=== PATIENT | female | born 1955 | race Caucasian/White ===

== ENCOUNTER 2017-01-03 12:06 | Emergency (ER) | payer BC ==
[~2017-01-03] VITALS: Ht 157.5 cm; Wt 49.6 kg
[~2017-01-03 12:06] MED LIST: ASPI81CH2 PO; BUSP15TA70 PO; CLON0.5T3 PO; ESTR10TA PR; FLUC200T PO; ISOS30TA35 PO; LAMO200T PO; LAMO25TA PO; LISI-789 PO; LPT/40 PO; METO-217 PO; MOME220A INH; NITR0.4S UT; PANT40TA PO; VNTHFA/IN INH
[2017-01-03 12:10] VITALS: BP 125/77; TEMP 36.6; Ht 157.5 cm; Wt 49.6 kg
[2017-01-03] MEDS ORDERED: MOME220A INH (12:19)
[2017-01-03] MEDS ORDERED: SULF800T23 PO (12:58)
[2017-01-03 13:03] VITALS: PULSE 76; O2SAT 96
[2017-01-03 13:16] LABS: ZZUR CULT IF INDIC CLEAN CATCH NO
[2017-01-03 13:17] LABS: MANUAL MICROSCOPIC REQUIRED? YES; REVIEW REQ? NO; SULFASALICYLIC ACID NEG (NEG); URINE APPEARANCE SLIGHTLY CLOUDY (CLEAR); URINE COLOR ORANGE; URINE SPECIFIC GRAVITY 1.017 (1.000-1.030)
[2017-01-03 13:27] LABS: URINE WBC >30 /hpf (0-5)
[2017-01-03 13:28] LABS: URINE BACTERIA 2+ (NEG)
--- NOTE | 2017-01-03 20:54 | EMERGENCY ROOM VISIT NOTE ---
History First contact with patient: 12:48 Chief Complaint: URINARY SYMPTOMS Stated Complaint: UTI History of Present Illness The patient is a 61 year old female who presents to the Emergency Room with complaints of urinary discomfort, urgency and frequency since earlier this morning. The patient reports no fever, chills, back pain, nausea or vomiting. She has had a bladder infection in the past, and reports that this feels similar. She did take Uristat for the discomfort. She called her family doctor 's office, but they could not get her in until next week. She elected to come to the emergency department for evaluation. She currently denies any pain since using the Uristat. Review of Systems 10 system review was performed and was negative except for pertinent positives and negatives as indicated in history of present illness Past Medical/Surgical History Medical Problems: (1) Asthma (2) Coronary artery disease (3) Dyslipidemia (4) GERD (gastroesophageal reflux disease) Surgical Problems: (1) Status post cardiac catheterization Family History Unremarkable Social History Smoking Status: Never Smoker Alcohol Use: none Marital Status: Housing Status: lives with family Occupation Status: employed Current/Historical Medications Scheduled Aspirin (Aspirin), 81 MG PO DAILY Atorvastatin (Lipitor), 40 MG PO DAILY Buspirone Hcl (Buspar), 7.5 MG PO BID Estradiol Vaginal (Vagifem), 1 SUPP ME 2XWK Fluconazole (Diflucan), 200 MG PO Q2D Isosorbide Mononitrate Ext Rel (Imdur Ext Rel), 1 TAB PO QAM Lamotrigine (Lamictal), 200 MG PO QAM Lamotrigine (Lamictal), 100 MG PO QPM Lisinopril (Zestril), 2.5 MG PO DAILY Metoprolol Succinate (Toprol Xl), 50 MG PO DAILY Mometasone Furoate (Inhalation (Asmanex Twisthaler 120 Me), 1 PUFF INH QAM Nitroglycerin (Nitrostat), 0.4 MG UT PRN Pantoprazole Sodium (Protonix), 40 MG PO BID Sulfa/Trimethoprim (Bactrim Ds 800MG/160MG), 1 TAB PO BID Scheduled PRN Albuterol Hfa (Ventolin Hfa), 2 PUFF INH QID PRN for Wheezing Clonazepam (Klonopin), 0.5 MG PO DAILY PRN for Anxiety Physical Exam Vital Signs Date Time Temp Pulse Resp B/P (MAP) Pulse Ox O2 Delivery O2 Flow Rate FiO2 01/03/17 13:03 76 16 96 01/03/17 12:10 36.6 74 18 125/77 96 Room Air Physical Exam CONSTITUTIONAL: Healthy and well nourished. Alert and oriented X 3 with positive affect. Patient does not appear in any acute distress, nor does she appear toxic. HEENT: Normocephalic, atraumatic. Pupils equal, round and reactive. NECK: Full active range of motion without discomfort. RESPIRATORY: Clear to auscultation bilaterally with no wheezing, crackles, rhonchi or stridor. CARDIOVASCULAR: Regular rate and rhythm with no murmurs, rubs or gallops. GASTROINTESTINAL: Bowel sounds present in all quadrants. No abdominal or suprapubic tenderness to palpation. Negative CVA tenderness. MUSCULOSKELETAL: Full range of motion of all joints without discomfort. INTEGUMENTARY: No rash or other significant dermatologic conditions noted. NEUROLOGIC: No focal neurologic deficits noted. Medical Decision & Procedures Laboratory Results Test 01/03/17 12:19 Urine Color ORANGE Urine Appearance SLIGHTLY CLOUDY (CLEAR) Urine pH (4.5-7.5) Urine Specific Seaman 1.017 (1.000-1.030) Urine Protein NEG (NEG) Urine Glucose (UA) (NEG) Urine Ketones (NEG) Urine Occult Blood (NEG) Urine Nitrite (NEG) Urine Bilirubin (NEG) Urine Urobilinogen (NEG) Urine Leukocyte Esterase (NEG) Urine RBC 5-10 /hpf (0-4) Urine WBC >30 /hpf (0-5) Urine Epithelial Cells >30 /lpf (0-5) Urine Bacteria 2+ (NEG) ED Course Patient history and physical exam were performed. Nurse's notes were reviewed. Vital signs were reviewed and were normal. The patient's urine sample was stained with Uristat, therefore urine dip was not performed. Urine microscopy shows evidence for a contaminated sample. Cultures were ordered. The patient gives a history consistent with urinary tract infection, therefore will be treated with Bactrim DS twice a day 5 days. She may continue with Uristat as needed for dysuria. She was instructed to follow-up with her family doctor if symptoms persist, or return to the emergency department for any progressively worsening pain, vomiting or fever. The patient was happy with plan of care, voiced understanding of all discharge instructions, and denied any pain at the time of discharge. Medical Decision Medication Reconcilliation Current Medication List: was personally reviewed by me Blood Pressure Screening Patient's blood pressure: Normal blood pressure Impression Primary Impression: Symptoms of urinary tract infection Departure Information Dispostion Home / Self-Care Condition FAIR Prescriptions Sulfa/Trimethoprim (Bactrim Ds 800MG/160MG) Tab 1 TAB PO BID for 5 Days, #10 TAB Prov: Jeremy Key PA 01/03/17 Referrals No Doctor, Assigned Forms HOME CARE DOCUMENTATION FORM, IMPORTANT VISIT INFORMATION Patient Instructions My [facility] Additional Instructions Complete all Bactrim DS antibiotics as prescribed. Continue with your current Uristat medication as needed for discomfort. Symptoms should start to improve within the next 24-48 hours. Follow-up with your family doctor or PLASMA CUTTING MACHINE OPERATOR if symptoms are not improving by Saturday. Return to the emergency department for any significant worsening pain, vomiting or fever.
== END 2017-01-03 13:04 | disposition home or self-care (01) ==
LOC: C.EDB 12:07 → C.EDD 13:04
DX: R39.89 Other symptoms and signs involving the genitourinary system (principal); J45.909 Unspecified asthma, uncomplicated; I25.10 Atherosclerotic heart disease of native coronary artery without angina pectoris; E78.5 Hyperlipidemia, unspecified; K21.9 Gastro-esophageal reflux disease without esophagitis; Z98.890 Other specified postprocedural states; Z79.82 Long term (current) use of aspirin; Z79.899 Other long term (current) drug therapy

== ENCOUNTER → 2017-05-01 | Day surgery (SDC) | payer BC ==
[2017-04-24 13:37] VITALS: Ht 157.5 cm; Wt 49.1 kg
[~2017-05-01] VITALS: Ht 157.5 cm; Wt 49.1 kg
[~2017-05-01] MED LIST changes: +500ML BSS 0.3ML EPI 1:1000PF IRRIG ONE; +ACETAMINOPHEN 325 MG TAB PO PRN; +ALBU18002 INH; +AMVISC PLUS 0.8ML SYRINGE INT OCU ONE; +ATROPINE SULFATE 0.1 MG/ML 5ML SYR IV PRN; +AcetaZOLAMIDE 250 MG TAB PO SCH; +BETAXOLOL HCL 0.25% OP SUSP PER DROP CHARGE OPL SCH; +BRIMONIDINE TART 0.2% OP SOLN PER DROP CHARGE ONE; +BSS FLUSH ONE; +CLBPO15 TOP; +ENDOCOAT 0.85ML SYRINGE INT OCU ONE; +ESTR10TA; -ESTR10TA PR; +EpHEDrine SULFATE INJ 50 MG/ML AMP IV PRN; +EpINEphrine INJ 1MG/ML AMP 1 MG/ML AMP ONE; +LACTATED RINGER'S 1000ML 500 ML IV SCH; -LAMO25TA PO; +LIDOCAINE 4% OP SOLN DROP CHARGE ONE; +LIDOCAINE 4% OP SOLN DROP CHARGE OPL SCH; +LIDOCAINE HCL 1% MPF 2 ML VIAL ONE; +LMC/150 PO; +LUTE15CA PO; +MIDAZOLAM HCL 1 MG/ML 2ML VIAL ONE; +MIX: 4ML BSS 1ML EPI 1:1000 PF INSTIL ONE; +MOXIFLOXACIN OPH SOLN PER DROP CHARGE ONE; +MULT-506 PO; +NURSING VERBAL MED ORDER ONE; +OCUCOAT 1 ML SOLN IO ONE; +OMEG10007 PO; +POVIDONE-IODINE OP SOLN 30 ML BTL ONE; +PROPARACAINE 0.5% OP SOLN PER DROP CHARGE OPL ONE; +PROPARACAINE 0.5% OP SOLN PER DROP CHARGE OPL SCH; +TOBRAMYCIN/DEXAMETHASONE OPH OINT PER APPLN CHARGE ONE; -VNTHFA/IN INH
--- NOTE | 2017-05-01 07:44 | History & Physical Bridge - [place] ---
H&P Re-Evaluation Bridge Note: I have examined the patient, reviewed the History & Physical and in the interval since the performance of the History & Physical I have noted the following changes of clinical significance: No changes noted
[2017-05-01] MEDS: PHENYLEPHRINE HCL 2.5% OP SOLN PER DROP CHARGE OPL SCH ×2 (08:28→08:33)
[2017-05-01] MEDS: TROPICAMIDE 1% OP SOLN PER DROP CHARGE OPL SCH ×2 (08:29→08:34)
[2017-05-01] MEDS: CYCLOPENTOLATE HCL 1% OP SOLN PER DROP CHARGE OPL SCH ×2 (08:30→08:35)
[2017-05-01] MEDS: MOXIFLOXACIN OPH SOLN PER DROP CHARGE OPL SCH ×2 (08:31→08:36)
--- NOTE | 2017-05-01 09:00 | Discharge Instructions-SurgCtr ---
Discharge Instructions Date of Service May 01, 2017. Visit Reason for Visit: Left Cataract Discharge Discharge Diagnosis / Problem: lens implant left eye Discharge Goals Goal(s): Improve function Activity Recommendations Activity Limitations: resume your previous activity Lifting Limitations: no more than 10 pounds Exercise/Sports Limitations: gradually increase as tolerated May Resume Sexual Activity: when tolerated Shower/Bathe: tomorrow Driving or Machine Use: resume 1 day after discharge Anesthesia . Post Anesthesia Instructions: If you have had General Anesthesia or IV Sedation: * Do not drive today. * Resume driving when surgeon permits. * Do not make important decisions or sign legal documents today. * Call surgeon for: 1. Temperature elevations greater than 101 degrees F. 2. Uncontrollable pain. 3. Excessive bleeding. 4. Persistent nausea and vomiting. 5. Medication intolerance (nausea, vomiting or rash). * For nausea and vomiting use only clear liquids such as: tea, soda, bouillon until nausea subsides, then gradually increase diet as tolerated. * If you have any concerns or questions, call your surgeon's office. If physician is unavailable and it is an emergency, call 911 or go to the nearest emergency room. . Instructions / Follow-Up Instructions / Follow-Up ACTIVITY RECOMMENDATIONS: * Light activities. * Mild irritation and blurred vision are common for the first few days. * You may walk outside, read, watch television. * Redness around the white part of the eye is common. MEDICATIONS: Resume previous medications unless instructed otherwise by your surgeon. * Take white Diamox (Acetazolamide) tablet at 1 pm today. Start all eye drops at 1 pm today: * Eye drops (today and tomorrow): Prednisone - one drop in operative eye every 3 hours while awake Ofloxacin - one drop in operative eye every 3 hours while awake SPECIAL CARE INSTRUCTIONS: * Tape plastic shield over eye to sleep at night. Call your doctor at with any concerns or problems. FOLLOW UP VISIT: Follow-up with Dr Wolfe at [facility] office as scheduled. Diet Recommendations Home Diet: no limitations Procedures Procedures Performed: cataract extraction with lens implant Pending Studies Studies pending at discharge: no Medical Emergencies . Who to Call and When: Medical Emergencies: If at any time you feel your situation is an emergency, please call 911 immediately. . Non-Emergent Contact Non-Emergency issues call your: Golf Shoe Spike Assembler Call Non-Emergent contact if: your pain is not controlled [phone] . . "Provider Documentation" section prepared by Leandro Wolfe. .
--- NOTE | 2017-05-01 09:03 | [facility] Operative Report ---
Operative Report Date of Service May 01, 2017. Operative Report 1. PREOPERATIVE DIAGNOSIS: Pre Senile nuclear cataract, left eye. 2. POSTOPERATIVE DIAGNOSIS: Pre Senile nuclear cataract, left eye. 3. PROCEDURE: Phacoemulsification of left cataract with posterior chamber lens implant, type Harpreet, model [id number], power +20.5 diopters. ANESTHESIA: Local standby. SURGEON: Dr. Wolfe. COMPLICATIONS: None. OPERATING TIME: 10 minutes. 4. OPERATION AND FINDINGS: DESCRIPTION OF PROCEDURE: The left pupil was dilated. The anesthetic was administered using a topical technique. The left eye was prepped and draped. A speculum was placed. A clear corneal incision was formed. The chamber was filled with Amvisc Plus and Endocoat. Epinephrine solution was used. A paracentesis was placed. A capsulorrhexis was performed. The nucleus was hydrodissected. The lens was removed with phacoemulsification. Time was 3.55 seconds. The aspiration unit was used to remove the cortex. The capsule was filled with Amvisc Plus. The lens implant was folded and placed into the capsule. The lens was rotated to the correct position. The incision was hydrated. The Amvisc was aspirated. The wound was secure. The chamber was deep. The pupil was round. Brimonidine, TobraDex ointment and Vigamox solution were placed. The speculum was removed. The patient was returned to the Recovery Room in stable condition. I attest to the content of the Intraoperative Record and any orders documented therein. Any exceptions are noted below. The scribe's documentation has been prepared in my presence, under my direction and personally reviewed by me in its entirety. I confirm that the note above accurately reflects all work, treatment, procedures, and medical decision making performed by me. I personally scribed for Leandro Wolfe M.D. (SIMON) on 05/01/17 at 09:03. Electronically submitted by Tangela GIL).
[2017-05-01 09:04] VITALS: TEMP 36.4
--- NOTE | 2017-05-01 09:11 | Anesthesia Progress Nt - [facility] ---
Anesthesia Post Op Note Date & Time May 01, 2017 at 09:11 Vital Signs Pain Intensity: 0 Vital Signs Past 12 Hours Date Time Temp Pulse Resp B/P (MAP) Pulse Ox O2 Delivery O2 Flow Rate FiO2 05/01/17 08:22 37 80 16 130/80 (97) 97 Room Air Notes Mental Status: alert / awake / arousable, participated in evaluation Pt Amnestic to Procedure: Yes Nausea / Vomiting: adequately controlled Pain: adequately controlled Airway Patency, RR, SpO2: stable & adequate BP & HR: stable & adequate Hydration State: stable & adequate Anesthetic Complications: no major complications apparent
[2017-05-01 09:29] VITALS: BP 105/61; PULSE 73; O2SAT 97
== END | disposition home or self-care (01) ==
LOC: X.SURG 08:08
PROVIDERS: ATTEND Specialist
DX: H26.8 Other specified cataract (principal); I25.10 Atherosclerotic heart disease of native coronary artery without angina pectoris; I10 Essential (primary) hypertension; M19.90 Unspecified osteoarthritis, unspecified site; Z79.899 Other long term (current) drug therapy; F32.9 Major depressive disorder, single episode, unspecified; Z79.82 Long term (current) use of aspirin

== ENCOUNTER 2019-04-23 17:37 | Inpatient (IN) ==
[2019-04-23] MEDS ORDERED: SODIUM CHLORIDE 0.9% 1000ML 500 ML IV ONE (17:53)
[2019-04-23] MEDS ORDERED: ALBUT/IPRATROP 3MG/0.5MG NEB 3 ML VIAL NEB STA (17:54)
--- NOTE | 2019-04-23 18:07 | XRay Report ---
XR chest 1V portable CLINICAL HISTORY: cough COMPARISON STUDY: 05/31/2013 FINDINGS: The heart is normal in size. There are right perihilar airspace opacities consistent with p neumonia given the clinical history of cough. Films subsequent treatment are recommended in follow-up to exclude an underlying mass lesion.[There is no failure. There are no pleural effusions. IMPRESSION: 1. Right perihilar airspace opacities consistent with a pneumonia given the clinical history of cough . Films subsequent to treatment will be necessary in follow-up to exclude an underlying mass lesion. Electronically signed by: Jaime Marshall M.D. 04/23/2019 6:06 PM
[2019-04-23 18:25] LABS: Basophils # (auto) 0.02 K/uL (0-0.2); Basophils % (auto) 0.2 %; Eosinophils # (auto) 0.09 K/uL (0-0.5); Eosinophils % (auto) 0.9 %; Hematocrit (blood only) 35.6 % (37-47); Hemoglobin 12.4 g/dL (12.0-16.0); Immature Granulocytes # (auto) 0.02 K/uL (0.00-0.02); Immature Granulocytes % (auto) 0.2 %; Lymphocytes # (auto) 1.55 K/uL (1.2-3.4); Lymphocytes % (auto) 15.7 %; Mean Corpuscular Hemoglobin 31.5 pg (25-34); Mean Corpuscular Hgb Conc 34.8 g/dL (32-36); Mean Corpuscular Volume 90.4 fL (80-100); Mean Platelet Volume 9.4 fL (7.4-10.4); Monocytes # (auto) 1.17 K/uL (0.11-0.59); Monocytes % (auto) 11.9 %; Neutrophils % (auto) 71.1 %; Platelet Count 256 K/uL (130-400); RDW Coefficient of Variation 12.3 % (11.5-14.5); RDW Standard Deviation 40.8 fL (36.4-46.3); Red Blood Count 3.94 M/uL (4.2-5.4); White Blood Count 9.85 K/uL (4.8-10.8)
[2019-04-23 18:37] LABS: D Dimer 410 ug/L FEU (0-500); INR 1.1 (0.9-1.1); Partial Thromboplastin Ratio 1.1; Partial Thromboplastin Time 28.8 Seconds (21.0-31.0)
[2019-04-23 18:45] LABS: Alanine Aminotransferase 272 U/L (12-78); Albumin Level 3.4 gm/dl (3.4-5.0); Aspartate Aminotransferase 389 U/L (15-37); BUN Creatinine Ratio 19.1 (10-20); Blood Urea Nitrogen 20 mg/dl (7-18); Calcium 9.8 mg/dl (8.5-10.1); Carbon Dioxide 29 mmol/L (21-32); Chloride 101 mmol/L (98-107); Creatinine Clr Calc Pharmacy 42.7 ml/min; Est GFR (African American) 66.1; Glucose 100 mg/dl (70-99); Magnesium 2.2 mg/dl (1.8-2.4); Potassium 4.1 mmol/L (3.5-5.1); Sodium 136 mmol/L (136-145)
--- NOTE | 2019-04-23 18:53 | Emergency Department Note ---
History of Present Illness General Chief complaint: Cough Stated complaint: ASTHMA ATTACK Time Seen by Provider: 04/23/19 17:46 History of Present Illness This is a 64-year-old female that presents to the emergency department via private vehicle with complaints of "asthma attack". The patient notes a history of asthma. She also notes a history of AL in 2012 that did not result in any stenting. She notes that she is to take an aspirin daily but has not done so in the past month. She notes that she is here today because she has been experiencing increased heart rate, as well as cough over the past several days. She also notes a tightness in the chest that began a few days ago as well. She notes that when she had the AL before she really did not have any symptoms. With her symptoms today, she denies any fevers, chills, history of PE, recent plane travel, surgery or leg edema. She does not smoke. She notes that her cough is producing mucus but not any specific color. She denies any allergies. Home Medications Home Medications Medication Instructions Recorded Confirmed Type albuterol sulfate [ProAir 2 inh INHALATION QID PRN 03/16/19 04/23/19 History RespiClick] aspirin [Aspirin Low Dose] 81 mg PO QAM 03/16/19 04/23/19 History clonazepam 0.25 mg PO QPM 03/16/19 04/23/19 History estradiol [Vagifem] 10 mcg VAGINAL 2XWK 03/16/19 04/23/19 History fluconazole 200 mg PO Q2D 03/16/19 04/23/19 History isosorbide mononitrate 30 mg PO QAM 03/16/19 04/23/19 History lamotrigine 150 mg PO QPM 03/16/19 04/23/19 History lisinopril 2.5 mg PO QAM 03/16/19 04/23/19 History metoprolol succinate 50 mg PO QAM 03/16/19 04/23/19 History nitroglycerin 0.4 mg SUBLINGUAL DIRECTED PRN 03/16/19 04/23/19 History omega 9-kbu-bes-fish oil [Fish Oil] 1 cap PO DAILY 03/16/19 04/23/19 History buspirone 7.5 mg PO AMHS 04/23/19 04/23/19 History clobetasol 1 applic TOPICAL BID PRN 04/23/19 04/23/19 History lamotrigine 200 mg PO QAM 04/23/19 04/23/19 History lutein 10 mg PO DAILY 04/23/19 04/23/19 History mometasone [Asmanex Twisthaler] 1 inh INHALATION DAILY 04/23/19 04/23/19 History gh-kh-hewv-FA-Ca carb-vit K 1 tab PO DAILY 04/23/19 04/23/19 History [One-A-Day Womens Formula] pantoprazole 20 mg PO BID 04/23/19 04/23/19 History rosuvastatin 40 mg PO HS 04/23/19 04/23/19 History Allergies Allergy/AdvReac Type Severity Reaction Status Date / Time No Known Allergies Allergy Verified 04/23/19 20:27 Past Med/Surg History Medical History Environmental allergies DOG DANDER AND DUST Asthma Hx of myocardial infarction 2012 -SEEN [facility] - HAS CATH Hypertension Hyperlipidemia Anxiety Depression Cataract RIGHT EYE GERD (gastroesophageal reflux disease) Rheumatoid arthritis Coronary artery disease (Chronic) Asthma (Chronic) Dyslipidemia (Chronic) Surgical History Hx of cardiac cath 2013 [facility] - NO STENTING Hx of left cataract extraction History of colonoscopy Hx of hernia repair Nausea and vomiting after administration of anesthetic agent Status post cardiac catheterization (Resolved) "08/22/12 [facility]: left main OK LAD 50% proximal + 50% apical 1st diagonal 90% ostial with total occlusion mid segment left circ mild irregularities RCA 30-50% stenoses" Family History Mother Breast cancer Diabetes Brother Diabetes Father , 2 weeks ago Stroke Coronary heart disease Skin cancer Hypertension Social History Preferred Language: Bangladeshi Communication Ability: Effective Beliefs That Will Affect Care: None Current Living Situation: Spouse current occupational status: employed 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 Feels Safe at Home: Yes Safety Concerns: Feels Safe At This Time Smoking Status: Former smoker Second Hand Exposure: No ; Hx Alcohol Use: No Hx Substance Use: No Review of Systems A total of 10 systems reviewed and were otherwise negative Physical Exam Vital Signs Vital Signs - 24 hr 04/23/19 17:39 04/23/19 18:07 04/23/19 18:33 Temperature 37.2 C Temperature Source Oral Sepsis Recent Fever Within 48 Hours No Sepsis New/Unexplained Change in Mental Status No Sepsis Action Taken by Nursing No Action Required Pulse Rate 115 H 115 H Pulse Rate [Radial] 111 H Pulse Rate from SpO2 Sensor 116 H Pulse Rhythm Regular Respiratory Rate 22 20 19 Respiratory Effort / Characteristics Non-Labored Spontaneous Non-Labored Spontaneous Respiratory Depth Normal Respiratory Pattern Regular Blood Pressure 163/93 H 148/85 H Blood Pressure Mean 116 106 Blood Pressure Position Sitting Pulse Oximetry 92 97 93 Oxygen Delivery Method Room Air Room Air 04/23/19 19:05 04/23/19 19:20 04/23/19 19:30 Temperature Temperature Source Sepsis Recent Fever Within 48 Hours Sepsis New/Unexplained Change in Mental Status Sepsis Action Taken by Nursing Pulse Rate 125 H 118 H 108 H Pulse Rate [Radial] Pulse Rate from SpO2 Sensor 125 H 108 H Pulse Rhythm Respiratory Rate 21 21 Respiratory Effort / Characteristics Respiratory Depth Respiratory Pattern Blood Pressure 171/91 H 171/91 H 143/77 H Blood Pressure Mean 117 99 Blood Pressure Position Pulse Oximetry 99 97 Oxygen Delivery Method 04/23/19 20:52 04/23/19 21:00 04/23/19 21:30 Temperature Temperature Source Sepsis Recent Fever Within 48 Hours Sepsis New/Unexplained Change in Mental Status Sepsis Action Taken by Nursing Pulse Rate 114 H 102 H 103 H Pulse Rate [Radial] Pulse Rate from SpO2 Sensor 114 H 103 H 103 H Pulse Rhythm Respiratory Rate 24 16 25 H Respiratory Effort / Characteristics Respiratory Depth Respiratory Pattern Blood Pressure 141/91 H 121/74 123/77 Blood Pressure Mean 107 89 92 Blood Pressure Position Pulse Oximetry 94 93 94 Oxygen Delivery Method VITAL SIGNS - Vital signs and nursing notes were reviewed. Stable and afebrile. GENERAL -64-year-old female appearing her stated age who is in no acute distress but is coughing repeatedly on my examination and does appear to be slightly ill. Communicates well with provider and answers questions appropriately. SKIN - Without rashes. HEAD - NC/AT. EYES - Sclera anicteric. EARS - No deformities of external structures noted on gross examination bilaterally. NOSE - Midline and without cyanosis. No epistaxis or purulent drainage noted. Septum midline without deviation or septal hematoma noted. MOUTH/OROPHARYNX - Without perioral cyanosis. LUNGS - Chest wall symmetric without accessory muscle use, intercostals retractions, or central cyanosis. Normal vesicular breath sounds CTA B/L. No wheezes, rales, or rhonchi appreciated. CARDIAC -tachycardia with S1/S2. No murmur, rubs, or gallops appreciated. ABDOMEN - Abdominal contour normal without pulsations or visible masses. BS n ormoactive all four quadrants. No tenderness, palpable masses, hepatosplenomegaly, or ascites noted. EXTREMITIES - No clubbing or peripheral cyanosis. No pretibial edema present. +5/5 strength noted in UE/LE bilaterally. NEUROLOGIC - Cranial nerves II through XII grossly intact. PSYCH - A&O, and cooperates fully with examiner. Pt is very pleasant and interacts well with examiner. Course Administered Medications Buspirone HCl (Buspar) 7.5 mg PO BID TRUDI Stop: 05/23/19 23:04 Last Admin: 04/24/19 00:02 Dose: 7.5 mg Documented by: [id number] Guaifenesin (Mucinex) 600 mg PO Q12 TRUDI Stop: 05/23/19 23:04 Last Admin: 04/24/19 00:01 Dose: 600 mg Documented by: [id number] Potassium Chloride/Sodium Chloride (Normal Saline W/20 Meq Kcl) 20 meq in 1,000 mls @ 50 mls/hr IV .Q20H ONE Stop: 04/24/19 19:04 Last Admin: 04/24/19 00:04 Dose: 50 mls/hr Documented by: [id number] Lamotrigine (Lamictal) 150 mg PO QPM TRUDI Stop: 05/24/19 00:14 Last Admin: 04/24/19 00:14 Dose: 150 mg Documented by: [id number] Nitroglycerin (Nitro-Bid 2%) 1 inch EXT Q6 TRUDI Stop: 05/24/19 00:00 Last Admin: 04/24/19 00:18 Dose: 1 inch Documented by: [id number] Discontinued Medications Albuterol (Duoneb) 3 ml NEB NOW STA Stop: 04/23/19 17:55 Last Admin: 04/23/19 18:07 Dose: 3 ml Documented by: [id number] Aspirin (Aspirin Chew) 324 mg PO NOW STA Stop: 04/23/19 19:13 Last Admin: 04/23/19 19:17 Dose: 324 mg Documented by: [id number] Sodium Chloride (Nss 1000ml) 500 mls @ 999 mls/hr IV .Q31M ONE Stop: 04/23/19 18:23 Last Infusion: 04/23/19 19:11 Dose: 0 mls/hr Documented by: [id number] Admin: 04/23/19 18:32 Dose: 999 mls/hr Documented by: [id number] Piperacillin Sod/Tazobactam Sod (Zosyn) 4.5 gm in 120 mls @ 240 mls/hr IV NOW ONE Stop: 04/23/19 19:54 Last Infusion: 04/23/19 21:29 Dose: 0 mls/hr Documented by: [id number] Admin: 04/23/19 20:44 Dose: 240 mls/hr Documented by: [id number] Doxycycline Hyclate 100 mg/ (Dextrose) 110 mls @ 50 mls/hr IV NOW STA Stop: 04/24/19 00:09 Last Infusion: 04/24/19 01:37 Dose: 0 mls/hr Documented by: [id number] Admin: 04/23/19 23:12 Dose: 50 mls/hr Documented by: [id number] Ioversol (Optiray 320 125ml) 120 ml IV ONCE PRN PRN Reason: Interaction Checking Stop: 04/27/19 18:55 Last Admin: 04/23/19 18:56 Dose: 120 ml Documented by: [id number] Metoprolol Tartrate (Lopressor) 5 mg IV NOW STA Stop: 04/23/19 19:17 Last Admin: 04/23/19 19:20 Dose: 5 mg Documented by: [id number] Nitroglycerin (Nitrostat) 0.4 mg SL NOW STA Stop: 04/23/19 19:12 Last Admin: 04/23/19 19:18 Dose: 0.4 mg Documented by: [id number] Nitroglycerin (Nitro-Bid 2%) Confirm Administered Dose 18 inch .ROUTE .STK-MED ONE Stop: 04/24/19 00:19 Last Admin: 04/24/19 00:22 Dose: Not Given Documented by: [id number] Medical Decision Making Laboratory Data Result diagrams: 04/23/19 18:08 04/23/19 18:08 Lab Results 11/01/0204/23/19 04/23/19 Range/Units 18:08 18:08 18:08 WBC 9.85 (4.8-10.8) K/uL RBC 3.94 L (4.2-5.4) M/uL Hgb 12.4 (12.0-16.0) g/dL Hct 35.6 L (37-47) % MCV 90.4 (80-100) fL MCH 31.5 (25-34) pg MCHC 34.8 (32-36) g/dL RDW Std Deviation 40.8 (36.4-46.3) fL RDW Coeff of Vinayak 12.3 (11.5-14.5) % Plt Count 256 (130-400) K/uL MPV 9.4 (7.4-10.4) fL Immature Gran % (Auto) 0.2 % Neut % (Auto) 71.1 % Lymph % (Auto) 15.7 % Norton % (Auto) 11.9 % Eos % (Auto) 0.9 % Baso % (Auto) 0.2 % Immature Gran # (Auto) 0.02 (0.00-0.02) K/uL Neut # (Auto) 7.00 H (1.4-6.5) K/uL Lymph # (Auto) 1.55 (1.2-3.4) K/uL Norton # (Auto) 1.17 H (0.11-0.59) K/uL Eos # (Auto) 0.09 (0-0.5) K/uL Baso # (Auto) 0.02 (0-0.2) K/uL PT 11.0 (9.0-12.0) Seconds INR 1.1 (0.9-1.1) APTT 28.8 (21.0-31.0) Seconds PTT Ratio 1.1 D-Dimer 410 (0-500) ug/L FEU Sodium 136 (136-145) mmol/L Potassium 4.1 (3.5-5.1) mmol/L Chloride 101 (98-107) mmol/L Carbon Dioxide 29 (21-32) mmol/L Anion Gap 6.0 (3-11) BUN 20 H (7-18) mg/dl Creatinine 1.03 (0.6-1.2) mg/dl Est Cr Clr Drug Dosing 42.7 ml/min Est GFR ( Amer) 66.1 Est GFR (Non-Af Amer) 57.0 BUN/Creatinine Ratio 19.1 (10-20) Glucose 100 H (70-99) mg/dl Lactate (0.4-2.0) mmol/L Calcium 9.8 (8.5-10.1) mg/dl Magnesium 2.2 (1.8-2.4) mg/dl Total Bilirubin 0.4 (0.2-1) mg/dl AST 389 H (15-37) U/L ALT 272 H (12-78) U/L Alkaline Phosphatase 156 H (45-117) U/L Troponin I < 0.015 (0-0.045) ng/ml NT-Pro-B Natriuret Pep 145 (0-900) pg/ml Total Protein 7.4 (6.4-8.2) gm/dl Albumin 3.4 (3.4-5.0) gm/dl Globulin 4.0 (2.5-4.0) gm/dl Albumin/Globulin Ratio 0.8 L (0.9-2) Lipase (73-393) U/L TSH 1.090 (0.300-4.500) uIu/ml Urine Color Urine Appearance (Clear) Urine pH (4.5-7.5) Ur Specific [place] (1.000-1.030) Urine Protein (Negative) Urine Glucose (UA) (Negative) Urine Ketones (Negative) Urine Blood (Negative) Urine Nitrite (Negative) Urine Bilirubin (Negative) Urine Urobilinogen (Negative) Ur Leukocyte Esterase (Negative) Urine WBC (Auto) (0-5) /hpf Urine RBC (Auto) (0-4) /hpf U Hyaline Cast (Auto) (0-5) /lpf U Epithel Cells (Auto) (0-5) /lpf Urine Bacteria (Auto) (Negative) Influenza Type A (PCR) (Neg) Influenza Type B (PCR) (Neg) 04/23/19 04/23/19 04/23/19 Range/Units 18:08 18:08 19:49 WBC (4.8-10.8) K/uL RBC (4.2-5.4) M/uL Hgb (12.0-16.0) g/dL Hct (37-47) % MCV (80-100) fL MCH (25-34) pg MCHC (32-36) g/dL RDW Std Deviation (36.4-46.3) fL RDW Coeff of Vinayak (11.5-14.5) % Plt Count (130-400) K/uL MPV (7.4-10.4) fL Immature Gran % (Auto) % Neut % (Auto) % Lymph % (Auto) % Norton % (Auto) % Eos % (Auto) % Baso % (Auto) % Immature Gran # (Auto) (0.00-0.02) K/uL Neut # (Auto) (1.4-6.5) K/uL Lymph # (Auto) (1.2-3.4) K/uL Norton # (Auto) (0.11-0.59) K/uL Eos # (Auto) (0-0.5) K/uL Baso # (Auto) (0-0.2) K/uL PT (9.0-12.0) Seconds INR (0.9-1.1) APTT (21.0-31.0) Seconds PTT Ratio D-Dimer (0-500) ug/L FEU Sodium (136-145) mmol/L Potassium (3.5-5.1) mmol/L Chloride (98-107) mmol/L Carbon Dioxide (21-32) mmol/L Anion Gap (3-11) BUN (7-18) mg/dl Creatinine (0.6-1.2) mg/dl Est Cr Clr Drug Dosing ml/min Est GFR ( Amer) Est GFR (Non-Af Amer) BUN/Creatinine Ratio (10-20) Glucose (70-99) mg/dl Lactate 0.9 (0.4-2.0) mmol/L Calcium (8.5-10.1) mg/dl Magnesium (1.8-2.4) mg/dl Total Bilirubin (0.2-1) mg/dl AST (15-37) U/L ALT (12-78) U/L Alkaline Phosphatase (45-117) U/L Troponin I < 0.015 (0-0.045) ng/ml NT-Pro-B Natriuret Pep (0-900) pg/ml Total Protein (6.4-8.2) gm/dl Albumin (3.4-5.0) gm/dl Globulin (2.5-4.0) gm/dl Albumin/Globulin Ratio (0.9-2) Lipase 148 (73-393) U/L TSH (0.300-4.500) uIu/ml Urine Color Urine Appearance (Clear) Urine pH (4.5-7.5) Ur Specific [place] (1.000-1.030) Urine Protein (Negative) Urine Glucose (UA) (Negative) Urine Ketones (Negative) Urine Blood (Negative) Urine Nitrite (Negative) Urine Bilirubin (Negative) Urine Urobilinogen (Negative) Ur Leukocyte Esterase (Negative) Urine WBC (Auto) (0-5) /hpf Urine RBC (Auto) (0-4) /hpf U Hyaline Cast (Auto) (0-5) /lpf U Epithel Cells (Auto) (0-5) /lpf Urine Bacteria (Auto) (Negative) Influenza Type A (PCR) (Neg) Influenza Type B (PCR) (Neg) 04/23/19 04/23/19 Range/Units 20:46 20:46 WBC (4.8-10.8) K/uL RBC (4.2-5.4) M/uL Hgb (12.0-16.0) g/dL Hct (37-47) % MCV (80-100) fL MCH (25-34) pg MCHC (32-36) g/dL RDW Std Deviation (36.4-46.3) fL RDW Coeff of Vinayak (11.5-14.5) % Plt Count (130-400) K/uL MPV (7.4-10.4) fL Immature Gran % (Auto) % Neut % (Auto) % Lymph % (Auto) % Norton % (Auto) % Eos % (Auto) % Baso % (Auto) % Immature Gran # (Auto) (0.00-0.02) K/uL Neut # (Auto) (1.4-6.5) K/uL Lymph # (Auto) (1.2-3.4) K/uL Norton # (Auto) (0.11-0.59) K/uL Eos # (Auto) (0-0.5) K/uL Baso # (Auto) (0-0.2) K/uL PT (9.0-12.0) Seconds INR (0.9-1.1) APTT (21.0-31.0) Seconds PTT Ratio D-Dimer (0-500) ug/L FEU Sodium (136-145) mmol/L Potassium (3.5-5.1) mmol/L Chloride (98-107) mmol/L Carbon Dioxide (21-32) mmol/L Anion Gap (3-11) BUN (7-18) mg/dl Creatinine (0.6-1.2) mg/dl Est Cr Clr Drug Dosing ml/min Est GFR ( Amer) Est GFR (Non-Af Amer) BUN/Creatinine Ratio (10-20) Glucose (70-99) mg/dl Lactate (0.4-2.0) mmol/L Calcium (8.5-10.1) mg/dl Magnesium (1.8-2.4) mg/dl Total Bilirubin (0.2-1) mg/dl AST (15-37) U/L ALT (12-78) U/L Alkaline Phosphatase (45-117) U/L Troponin I (0-0.045) ng/ml NT-Pro-B Natriuret Pep (0-900) pg/ml Total Protein (6.4-8.2) gm/dl Albumin (3.4-5.0) gm/dl Globulin (2.5-4.0) gm/dl Albumin/Globulin Ratio (0.9-2) Lipase (73-393) U/L TSH (0.300-4.500) uIu/ml Urine Color Yellow Urine Appearance Clear (Clear) Urine pH 6.0 (4.5-7.5) Ur Specific [place] > 1.045 H (1.000-1.030) Urine Protein Trace H (Negative) Urine Glucose (UA) Negative (Negative) Urine Ketones Trace H (Negative) Urine Blood Negative (Negative) Urine Nitrite Negative (Negative) Urine Bilirubin Negative (Negative) Urine Urobilinogen Negative (Negative) Ur Leukocyte Esterase Negative (Negative) Urine WBC (Auto) 1-5 (0-5) /hpf Urine RBC (Auto) 0-4 (0-4) /hpf U Hyaline Cast (Auto) 0 (0-5) /lpf U Epithel Cells (Auto) 10-20 H (0-5) /lpf Urine Bacteria (Auto) Negative (Negative) Influenza Type A (PCR) Neg for Influ A (Neg) Influenza Type B (PCR) Neg for Influ B (Neg) Imaging Data Radiologist's Impression: XR chest 1V portable CLINICAL HISTORY: cough COMPARISON STUDY: 05/31/2013 FINDINGS: The heart is normal in size. There are right perihilar airspace opacit ies consistent with pneumonia given the clinical history of cough. Films subsequent treatment are recommended in follow-up to exclude an underlying mass lesion.[There is no failure. There are no pleural effusions. IMPRESSION: 1. Right perihilar airspace opacities consistent with a pneumonia given the clinical history of cough. Films subsequent to treatment will be necessary in follow-up to exclude an underlying mass lesion. Electronically signed by: Jaime Marshall M.D. 04/23/2019 6:[address] ANGIOGRAM OF THE CHEST CLINICAL HISTORY: Cough, tachcyardia, no infectious symptoms ABNORMAL CHEST X- RAY. PERIHILAR NODULARITY COMPARISON STUDY: Chest x-ray dated 04/23/2019 TECHNIQUE: Following the IV administration of 120 mL of Optiray-320, CT angiogram of the thorax was performed from the thoracic inlet to the lung bases utilizing the pulmonary embolus protocol. Images are reviewed in the axial, sagittal, and coronal planes. IV contrast was administered without complication. MIP imaging was performed. A dose lowering technique was utilized adhering to the principles of ALARA. CT DOSE: 220.19 mGy.cm FINDINGS: There is equivocal mild hepatic steatosis No pathologically enlarged axillary mediastinal or hilar lymph nodes were visualized. There was no evidence of thoracic aortic dilatation. There were no pulmonary artery filling defects to indicate acute pulmonary embolism. No pleural effusions are visualized. There are areas of parenchymal consolidation within the right upper lobe and right middle lobe suggestive of a pneumonia. Films subsequent to treatment are recommended in follow-up. IMPRESSION: 1. No evidence of acute pulmonary embolism 2. Areas of parenchymal consolidation with air bronchograms identified within the right upper lobe and right middle lobe, suggestive of a pneumonia. Imaging subsequently treatment is recommended in follow-up Electronically signed by: Jaime Marshall M.D. 04/23/2019 7:13 PM [facility] Narrative Patient was seen and evaluated as above in room a4b. Review was performed of nursing notes and vital signs. After obtaining a thorough history and physical examination the above work up was performed. She presents to us today with a cough. She is coughing on exam. She is tachycardic. No chest pain. IV access was established and the above work-up was performed. Chest x-ray was obtained and is concerning for pneumonia. The patient has had no fever, and I am concerned for possible other etiologies. Fluids were ordered given the tachycardia. She was given a DuoNeb for the cough. CBC reveals no leukocytosis or concerning anemia. No coagulopathy. D-dimer negative. She appears to be slightly dehydrated with a BUN of 20. Patient's AST and ALT are elevated. Initial troponin negative. BNP normal. Lipase and TSH reveals a normal result. Urinalysis does not suggest infection. The patient's initial EKG revealed sinus tachycardia, at a rate of 117 bpm. QTc 426. This was compared to EKG of June 01, [address] depression is now noted in the anterior lateral leads. T wave inversion is now evident in the inferior leads. I will note that the patient currently has no chest pain. Given the patient's tachycardia, lack of infectious symptoms, and chest x-ray showing consolidation I did believe that a CTA was warranted to rule out PE. Results of this are as above and there is redemonstration of the suspected pneumonia. I will note that I was called when the patient was down in CT, shortly after she came off the table she developed substernal chest pain. I was immediately provided the EKG (EKG #2) that was obtained, and this was at 1907. The EKG revealed sinus tachycardia, rate of 123 bpm. This was compared to the EKG performed earlier in the day and ST depression was noted in the inferior and anterior leads. This was concerning, and the patient was given sublingual nitro, IV Lopressor and aspirin. She was reevaluated with complete improvement of her symptoms and the tachycardia was also improved. Once pain-free repeat EKG (EKG #3) was performed at 1935 and revealed sinus tachycardia, rate of 109 bpm and when compared with the EKG pe rformed at [address] depression was no longer evident in the inferior or anterior lateral leads. T wave inversion is less evident in the inferior leads and the T wave inversion is no longer evident in the anterior lateral leads. Again the patient was pain-free. Zosyn was ordered for the pneumonia, but prior to this blood cultures and lactic acid were also obtained. Lactic acid was normal. Given the patient's curb 65 score of 2, EKG changes that occurred during her stay here with chest pain I do believe that further evaluation and management is warranted in the inpatient setting. I did consult the hospitalist who will admit the patient for further evaluation. Case was discussed with the attending physician. I attest that I have personally reviewed the patient medication list. I attest that I have reviewed the patient's blood pressure and it was found to be elevated likely secondary to situation and the patient will be admitted for further evaluation and management of her presentation here today. GCS: 15 In the evaluation and treatment of this patient, the following differential diagnoses were considered: AL, ASC, Dysrhythmia, Angina, Mediastinitis, GERD, Esophagitis, PE, Pneumonia, Bronchitis, Costochondritis, Rib Fracture, Zoster, among others. Impression & Plan Pneumonia involving right lung, Abnormal EKG, Elevated LFTs, Chest pain, Cough Critical Care Time I have personally spent greater than 45 minutes of critical care time in the direct management of this patient. This includes bedside care, interpretation of diagnostic studies, and testing, discussion with consultants, patient, and other required patient management activities. This 45 minutes is in excess of all separately billable procedures. Discharge Plan Visit Data *Final* Discharge Date/Time: 04/23/19 22:47 Chief Complaint: Cough Stated Complaint: ASTHMA ATTACK ED Provider: Henrry Griffith ED Midlevel Provider: Herrera Robles Discharge Problem: Pneumonia involving right lung, Abnormal EKG, Elevated LFTs, Chest pain, Cough Patient Disposition: Admitted As Inpatient Condition: Good Discharge Instructions Interventions: ED Discharge Assessment Last Done: 04/23/19 22:47
[2019-04-23 18:56] LABS: Albumin Globulin Ratio 0.8 (0.9-2); Alkaline Phosphatase 156 U/L (45-117); Bilirubin,Total 0.4 mg/dl (0.2-1); NT Pro B Type Natriuretic Pept 145 pg/ml (0-900); Total Protein 7.4 gm/dl (6.4-8.2); Troponin I < 0.015 ng/ml (0-0.045)
[2019-04-23] MEDS ORDERED: OPTIRAY 320 125ml IV PRN (18:56)
[2019-04-23] MEDS ORDERED: NITROGLYCERIN SL 0.4 MG/TAB TAB SL STA (19:11)
[2019-04-23] MEDS ORDERED: ASPIRIN 81 MG CHEW PO STA (19:12)
--- NOTE | 2019-04-23 19:15 | CT Scan Report ---
CT ANGIOGRAM OF THE CHEST CLINICAL HISTORY: Cough, tachcyardia, no infectious symptoms ABNORMAL CHEST X-RAY. PERIHILAR NODULARI TY COMPARISON STUDY: Chest x-ray dated 04/23/2019 TECHNIQUE: Following the IV administration of 120 mL of Optiray-320, CT angiogram of the thorax was p erformed from the thoracic inlet to the lung bases utilizing the pulmonary embolus protocol. Images a re reviewed in the axial, sagittal, and coronal planes. IV contrast was administered without complica tion. MIP imaging was performed. A dose lowering technique was utilized adhering to the principles o f ALARA. CT DOSE: 220.19 mGy.cm FINDINGS: There is equivocal mild hepatic steatosis No pathologically enlarged axillary mediastinal or hilar lymph nodes were visualized. There was no evidence of thoracic aortic dilatation. There were no pulmonary artery filling defects to indicate acute pulmonary embolism. No pleural effusions are visualized. There are areas of parenchymal consolidation within the right upper lobe and right middle lobe sugges tive of a pneumonia. Films subsequent to treatment are recommended in follow-up. IMPRESSION: 1. No evidence of acute pulmonary embolism 2. Areas of parenchymal consolidation with air bronchograms identified within the right upper lobe an d right middle lobe, suggestive of a pneumonia. Imaging subsequently treatment is recommended in foll ow-up Electronically signed by: Jaime Marshall M.D. 04/23/2019 7:13 PM
[2019-04-23] MEDS ORDERED: METOPROLOL TARTRATE 1 MG/ML VIAL IV STA (19:16)
[2019-04-23] MEDS ORDERED: PIPERACILL/TAZOBAC CONSULT ACTIVE PRN (19:25)
[2019-04-23] MEDS ORDERED: PIPERACILLIN/TAZOBACTAM 4.5 GM/120 ML BAG IV ONE (19:25)
--- NOTE | 2019-04-23 20:07 | Emergency Department Note ---
ED Visit Note Patient was seen by our PA/RAILROAD REPAIRER. I was involved in the patient's care and did evaluate the patient myself. I was involved in the care throughout the ER stay. The patient presents with chest pain. Work-up shows a pneumonia as the cause for her difficulty. She developed some increasing pain while here in the ED and EKG showed some ischemic changes. Her EKG and her symptoms improved with nitroglycerin, aspirin and Lopressor. Given her findings, given the EKG changes, a hospital stay is clearly warranted. The on-call hospitalist was consulted. .
[2019-04-23 20:57] LABS: Appearance Urine Clear (Clear); Bacteria Urine Automated Negative (Negative); Bilirubin Urine Negative (Negative); Blood Urine Negative (Negative); Cast Urine Automated 0 /lpf (0-5); Color Urine Yellow; Glucose Urine UA Negative (Negative); Ketones Urine Trace (Negative); Leukocyte Esterase Urine Negative (Negative); Nitrite Urine Negative (Negative); Protein Urine Trace (Negative); RBC Urine Automated 0-4 /hpf (0-4); Specific Gravity Urine > 1.045 (1.000-1.030); Urobilinogen Urine Negative (Negative)
[2019-04-23 21:26] LABS: Influenza A virus by PCR Neg for Influ A (Neg); Influenza B virus by PCR Neg for Influ B (Neg)
--- NOTE | 2019-04-23 21:29 | History & Physical Report ---
Date of Service April 23, 2019 Assessment & Plan (1) Pneumonia involving right lung: This is a 64-year-old female who has significant past medical history of CAD, HTN, HLD, depression and anxiety, CKD stage III who presents to [facility] ED secondary to cough and shortness of breath x3 days. In ED patient was hypertensive, although on my examination her BP was 120/80s, tachycardic 118, afebrile H&H 12.4/36.6, wbc 9.85, plt 256 D-dimer WNL ; Initial troponin < 0.015, Pro BNP, Bun 20, Cr 1.03, Lactate 0.9, Lipase and TSH WNL Transaminitis with AST 389, ALT 272, ALP 156, Tbili WNL Influenza negative CXR and CT Chest concerning for R upper/mid PNA Ddx: Viral PNA, atypical pna, bacterial PNA, legionella, takotsubo BOTTOM BRUSHER, ACS, Anxiety among other etiologies Please refer to Dr. Cunningham addendum for further details regarding assessment and plan (2) Abnormal EKG: noted on admission initial troponin negative recommend cycle trop x 3 repeat ecg echocardiogram currently pt chest pain/sob free (3) Elevated LFTs: AST 389, ALT 272, alk phos 156, total bilirubin WNL Labs reviewed from 09/2018 revealed unremarkable LFTs Patient asymptomatic without any GI symptoms Would recommend obtaining right upper quadrant ultrasound, holding statin and hepatitis panel (4) Coronary artery disease: Currently no chest pain or shortness of breath Patient does have EKG changes with T wave inversions inferiorly On aspirin, Crestor, metoprolol, lisinopril, Imdur as outpatient Initial troponin negative Recommend cycle troponin x3 Repeat EKG Recommend obtain echocardiogram in a.m. (5) Hypertension: blood pressure improved on my exam 120/80s continue metoprolol, lisinopril, Imdur Monitor (6) Dyslipidemia: on crestor elevated LFTS, ? if in setting of crestor plan per Dr. Vogt (7) Asthma: no acute exac despite PNA dx continue asthmanex, prn albuterol (8) Acute stress reaction: Father 2 weeks ago increased depression/anx because of this monitor closely (9) Depression with anxiety: continue lamictal, buspar, clonazepam increased anx with recent passing of father (10) GERD (gastroesophageal reflux disease): continue PPI (11) DVT prophylaxis: Per Dr. Vogt Disposition: admit to medical floor Follow up: PCP Dr. Monroy upon discharge Pt was seen and examined in collaboration with Dr. Vogt, please see addendum History of Present Illness Chief Complaint: Cough and shortness of breath x3 days. Primary Care Provider: aVn Monroy MD This is a 64-year-old female who has significant past medical history of CAD, HTN, HLD, depression and anxiety, CKD stage III who presents to [facility] ED secondary to cough and shortness of breath x3 days. Over the past 3 days patient has developed a harsh cough, occasionally productive of white clear sputum, shortness of breath, chest tightness and heart palpitations. Today while at work patient felt like her heart was racing and continued to have persistent cough; therefore, she came to ED for further evaluation. "I have hx of heart attack and was concerned maybe it was that." She denies any recent fever, chills, sweats, lightheadedness, dizziness, syncope, sinus congestion, rhinorrhea, sore throat, dmitry chest pain, hemoptysis, HUDSON, nausea, vomiting, abdominal pain change in bowel or urinary habits. Her appetite has otherwise been unremarkable. She denies any weight loss or weight gain. She denies any edema, PND orthopnea. Over the past 2 weeks she has been very st ressed secondary to losing her father and thought may be her heart racing was due to that. Over the past 2 weeks she has noticed intermittent heart racing but was more persistent today which prompted her to seek evaluation. She has been compliant with all of her medications. She does feel mildly anxious currently. She has been able to exercise without restriction, last exercise was 3 days ago. She lives at home with her . She is a non-smoker nondrinker. 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 She did travel to [place] in early February and stayed in hotel. Family members went along as well and has no current sick contacts. She also admits to being very sick in January for approximately 4 weeks with upper respiratory symptoms, cough and her asthma. She states she was not treated with antibiotics and symptoms improved on their own. Allergies Allergy/AdvReac Type Severity Reaction Status Date / Time No Known Allergies Allergy Verified 04/23/19 20:27 Home Medications Home Medications Medication Instructions Recorded Confirmed Type albuterol sulfate [ProAir 2 inh INHALATION QID PRN 03/16/19 04/23/19 History RespiClick] aspirin [Aspirin Low Dose] 81 mg PO QAM 03/16/19 04/23/19 History clonazepam 0.25 mg PO QPM 03/16/19 04/23/19 History estradiol [Vagifem] 10 mcg VAGINAL 2XWK 03/16/19 04/23/19 History fluconazole 200 mg PO Q2D 03/16/19 04/23/19 History isosorbide mononitrate 30 mg PO QAM 03/16/19 04/23/19 History lamotrigine 150 mg PO QPM 03/16/19 04/23/19 History lisinopril 2.5 mg PO QAM 03/16/19 04/23/19 History metoprolol succinate 50 mg PO QAM 03/16/19 04/23/19 History nitroglycerin 0.4 mg SUBLINGUAL DIRECTED PRN 03/16/19 04/23/19 History omega 4-gmn-wyy-fish oil [Fish Oil] 1 cap PO DAILY 03/16/19 04/23/19 History buspirone 7.5 mg PO AMHS 04/23/19 04/23/19 History clobetasol 1 applic TOPICAL BID PRN 04/23/19 04/23/19 History lamotrigine 200 mg PO QAM 04/23/19 04/23/19 History lutein 10 mg PO DAILY 04/23/19 04/23/19 History mometasone [Asmanex Twisthaler] 1 inh INHALATION DAILY 04/23/19 04/23/19 History rq-hs-wsmu-FA-Ca carb-vit K 1 tab PO DAILY 04/23/19 04/23/19 History [One-A-Day Womens Formula] pantoprazole 20 mg PO BID 04/23/19 04/23/19 History rosuvastatin 40 mg PO HS 04/23/19 04/23/19 History Past Med/Surg History Medical History Environmental allergies DOG DANDER AND DUST Asthma Hx of myocardial infarction 2012 -SEEN [facility] - HAS CATH Hypertension Hyperlipidemia Anxiety Depression Cataract RIGHT EYE GERD (gastroesophageal reflux disease) Rheumatoid arthritis Coronary artery disease (Chronic) Asthma (Chronic) Dyslipidemia (Chronic) Surgical History Hx of cardiac cath 2012 [facility] - NO STENTING Hx of left cataract extraction History of colonoscopy Hx of hernia repair Nausea and vomiting after administration of anesthetic agent Status post cardiac catheterization (Resolved) "08/22/12 [facility]: left main OK LAD 50% proximal + 50% apical 1st diagonal 90% ostial with total occlusion mid segment left circ mild irregularities RCA 30-50% stenoses" Family History Mother Breast cancer Diabetes Brother Diabetes Father , 2 weeks ago Stroke Coronary heart disease Skin cancer Hypertension Social History Preferred Language: Armenian Communication Ability: Effective Beliefs That Will Affect Care: None Current Living Situation: Spouse current occupational status: employed 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 Feels Safe at Home: Yes Safety Concerns: Feels Safe At This Time Smoking Status: Former smoker Second Hand Exposure: No ; Hx Alcohol Use: No Hx Substance Use: No Review of Systems Review of Systems: All systems reviewed & are unremarkable except as noted in HPI & below Physical Exam Physical Exam: Constitutional: WD/WN, female, appears anxious, vitals as above, NAD, sitting up in bed, pleasant, conversing easily Head: Normocephalic, Atraumatic Eyes: PERRL, conjunctivae normal, anicteric sclerae ENMT: external ear and nose normal, oropharynx normal Neck: trachea midline, no thyromegaly normal visual inspection Respiratory: normal respiratory effort, lungs clear to auscultation with decreased breath sounds bilateral bases, no wheeze, rales, rhonchi. Normal insp/exp effort, no accessory muscle use Cardiovascular: Tachycardic rate, regular rhythm, soft 1/6 JOSEY best noted RUSB, no edema Vessels: no JVD or carotid bruit Chest: normal inspection of chest Abdomen: normal bowel sounds, soft, nontender, no hepatosplenomegaly Musculoskeletal: no cyanosis or clubbing, extremities motor strength 5/5 Skin: no rashes, warm and dry normal turgor Neurologic: PERRL, EOMI, accommodation nl, no face palsy, no dysarthria CN's II-XI intact bilaterally and moves all extremities Psychiatric: A+Ox3, euthymic affect Lymphatic: no cervical or axillary lymphadenopathy : deferred Results & Data Vital Signs (Past 12 Hours) Vital Signs Temp Pulse Pulse Resp BP Pulse Ox 04/23/19 19:20 118 H 171/91 H 04/23/19 18:33 115 H 19 148/85 H 93 04/23/19 18:07 111 H 20 97 04/23/19 17:39 37.2 C 115 H 22 163/93 H 92 Laboratory Results Short CBC 04/23/19 04/23/19 Range/Units 18:08 18:08 WBC 9.85 (4.8-10.8) K/uL Hgb 12.4 (12.0-16.0) g/dL Hct 35.6 L (37-47) % Plt Count 256 (130-400) K/uL Creatinine 1.03 (0.6-1.2) mg/dl AST 389 H (15-37) U/L Troponin I < 0.015 (0-0.045) ng/ml BMP 04/23/19 18:08 Sodium 136 Potassium 4.1 Chloride 101 Carbon Dioxide 29 BUN 20 H Creatinine 1.03 Glucose 100 H Calcium 9.8 Cardiac Enzymes 04/23/19 Range/Units 18:08 Troponin I < 0.015 (0-0.045) ng/ml Liver Function 04/23/19 Range/Units 18:08 Total Bilirubin 0.4 (0.2-1) mg/dl AST 389 H (15-37) U/L ALT 272 H (12-78) U/L Alkaline Phosphatase 156 H (45-117) U/L Albumin 3.4 (3.4-5.0) gm/dl Urine 04/23/19 Range/Units 20:46 Urine Color Yellow Urine Appearance Clear (Clear) Urine pH 6.0 (4.5-7.5) Ur Specific [place] > 1.045 H (1.000-1.030) Urine Protein Trace H (Negative) Urine Glucose (UA) Negative (Negative) Diagnostic Findings Chest CTA: IMPRESSION: 1. No evidence of acute pulmonary embolism 2. Areas of parenchymal consolidation with air bronchograms identified within the right upper lobe and right middle lobe, suggestive of a pneumonia. Imaging subsequently treatment is recommended in follow-up Chest Xray: IMPRESSION: 1. Right perihilar airspace opacities consistent with a pneumonia given the clinical history of cough. Films subsequent to treatment will be necessary in follow-up to exclude an underlying mass lesion. Medications Administered Short CBC 04/23/19 Range/Units 18:08 WBC 9.85 (4.8-10.8) K/uL Hgb 12.4 (12.0-16.0) g/dL Hct 35.6 L (37-47) % Plt Count 256 (130-400) K/uL BMP 04/23/19 18:08 Sodium 136 Potassium 4.1 Chloride 101 Carbon Dioxide 29 BUN 20 H Creatinine 1.03 Glucose 100 H Calcium 9.8 Cardiac Enzymes 04/23/19 Range/Units 18:08 Troponin I < 0.015 (0-0.045) ng/ml Liver Function 04/23/19 Range/Units 18:08 Total Bilirubin 0.4 (0.2-1) mg/dl AST 389 H (15-37) U/L ALT 272 H (12-78) U/L Alkaline Phosphatase 156 H (45-117) U/L Albumin 3.4 (3.4-5.0) gm/dl Urine 04/23/19 Range/Units 20:46 Urine Color Yellow Urine Appearance Clear (Clear) Urine pH 6.0 (4.5-7.5) Ur Specific [place] > 1.045 H (1.000-1.030) Urine Protein Trace H (Negative) Urine Glucose (UA) Negative (Negative) ECG Rate (beats per minute): 117 Rhythm: sinus tachycardia Findings: + T-wave inversion (Inferior) Code Status & VTE Plan Code Status Full Code VTE Prophylaxis Plan VTE Prophylaxis will be ordered: Yes Supervising Physician Co-Signing Physician Notes IM ATTENDING : Patient seen and examined. History obtained from patient and records. Preceding documentation by Ms. Catrina Stack PA-C reviewed. FINAL ASSESSMENT AND PLAN as follows : Chest discomfort hx CAD as per records Multifactorial : Atypical pneumonia, no overt sepsis Uncontrolled HTN Anxiety contributory Abnormal LFTs rule out hepatobiliary disease Patient denies abdominal pain symptoms. Prediabetes as per records, hemoglobin A1c of 5.21 March 2018 PCU Doxycycline for atypical pneumonia Facilitate home BP meds, may need titration Anxiolytic as needed trend troponin TTE; GMG Cardiology consult as per patient's request for chest pain Gallbladder ultrasound Follow LFTs, GI consult if with progression Update hemoglobin A1c DVT prophylaxis. Lovenox subcu Full code
[2019-04-23] MEDS ORDERED: DOXYCYCLINE HYCLATE 100 MG in DEXTROSE 5% 100 ML IV STA (21:58)
--- NOTE | 2019-04-23 22:45 | Ultrasound Report ---
BILIARY ULTRASOUND CLINICAL HISTORY: Abnormal LFTs COMPARISON STUDY: No previous studies for comparison. FINDINGS: The pancreas appears sonographically normal. The gallbladder appears sonographically normal . The liver appears sonographically normal. There is no ductal dilatation. The common bile duct measu res 1 mm. There is no right-sided hydronephrosis. IMPRESSION: 1. Normal biliary ultrasound. Electronically signed by: Jaime Marshall M.D. 04/23/2019 10:43 PM
[2019-04-23] MEDS ORDERED: NSS + 20MEQ KCL 20 MEQ/1,000 ML BAG IV ONE (23:05)
[2019-04-23] MEDS ORDERED: IPRATROPIUM BROMIDE NEB SOLN 0.02% 2.5 ML VIAL INH PRN (23:05)
[2019-04-23] MEDS ORDERED: LORazepam 0.5 MG/1 ML VIAL IV PRN (23:05)
[2019-04-23] MEDS ORDERED: LEVALBUTEROL 1.25MG/0.5ML NEB INH PRN (23:05)
[2019-04-23] MEDS ORDERED: MoRPHine SULFATE 4 MG/ML 1 ML CARP\\VIAL IV PRN (23:05)
[2019-04-23] MEDS ORDERED: PROMETHAZINE HCL 12.5 MG in SODIUM CHLORIDE 0.9% 50 ML IV PRN (23:05)
[2019-04-23] MEDS ORDERED: XOPENEX/ATROVENT 1.25mg/0.5MG NEB COMBO NEB PRN (23:05)
[2019-04-23] MEDS ORDERED: TRAMADOL HCL 50 MG TABLET PO PRN (23:05)
[2019-04-24] MEDS: guaiFENesin 600 MG TABCR PO SCH ×3 (00:01→21:25)
[2019-04-24] MEDS: BusPIRone 15 MG TAB PO SCH ×3 (00:02→21:23)
[2019-04-24] MEDS: lamoTRIgine 100 MG TAB PO SCH ×3 (00:14→21:25)
[2019-04-24] MEDS ORDERED: NITROGLYCERIN 2% OINTMENT 30GM TUBE ONE (00:18)
[2019-04-24] MEDS: NITROGLYCERIN 2% OINTMENT 30GM TUBE EXT SCH ×4 (00:18→18:31)
[2019-04-24 05:30] LABS: Basophils # (auto) 0.04 K/uL (0-0.2); Basophils % (auto) 0.5 %; Eosinophils # (auto) 0.14 K/uL (0-0.5); Eosinophils % (auto) 1.7 %; Hematocrit (blood only) 31.5 % (37-47); Hemoglobin 10.7 g/dL (12.0-16.0); Immature Granulocytes # (auto) 0.02 K/uL (0.00-0.02); Immature Granulocytes % (auto) 0.2 %; Lymphocytes # (auto) 1.61 K/uL (1.2-3.4); Lymphocytes % (auto) 19.3 %; Mean Corpuscular Hemoglobin 30.7 pg (25-34); Mean Corpuscular Volume 90.5 fL (80-100); Mean Platelet Volume 9.3 fL (7.4-10.4); Monocytes # (auto) 1.07 K/uL (0.11-0.59); Monocytes % (auto) 12.8 %; Neutrophils # (auto) 5.47 K/uL (1.4-6.5); Neutrophils % (auto) 65.5 %; Platelet Count 223 K/uL (130-400); RDW Coefficient of Variation 12.5 % (11.5-14.5); RDW Standard Deviation 41.1 fL (36.4-46.3); Red Blood Count 3.48 M/uL (4.2-5.4); White Blood Count 8.35 K/uL (4.8-10.8)
[2019-04-24 05:44] LABS: Estimated Average Glucose 123 mg/dl; Hemoglobin A1C 5.9 % (4.5-5.6)
[2019-04-24] MEDS: ACETAMINOPHEN 325 MG TAB PO PRN ×2 (05:53→16:00)
[2019-04-24 06:15] LABS: Alanine Aminotransferase 212 U/L (12-78); Albumin Globulin Ratio 0.8 (0.9-2); Albumin Level 2.7 gm/dl (3.4-5.0); Alkaline Phosphatase 137 U/L (45-117); Aspartate Aminotransferase 183 U/L (15-37); BUN Creatinine Ratio 15.9 (10-20); Bilirubin,Total 0.4 mg/dl (0.2-1); Blood Urea Nitrogen 12 mg/dl (7-18); Calcium 9.1 mg/dl (8.5-10.1); Carbon Dioxide 28 mmol/L (21-32); Chloride 106 mmol/L (98-107); Chol HDL Ratio 2; Cholesterol 119 mg/dl (0-200); Creatinine Clr Calc Pharmacy 56.2 ml/min; Est GFR (Non-African American) 78.6; Globulin 3.6 gm/dl (2.5-4.0); Glucose 98 mg/dl (70-99); HDL Cholesterol 71 mg/dl; LDL Cholesterol Calculated 35 mg/dl; Potassium 4.1 mmol/L (3.5-5.1); Sodium 140 mmol/L (136-145); Total Protein 6.3 gm/dl (6.4-8.2); Triglycerides 66 mg/dl (0-150); Troponin I < 0.015 ng/ml (0-0.045); VLDL Cholesterol 13 mg/dl
[2019-04-24] MEDS: ENOXAPARIN INJ 30 MG/0.3 ML SYR SQ SCH (07:57)
[2019-04-24] MEDS: MOMETASONE FUROATE 14 PUFF/1 INHALER INH SCH (07:58)
[2019-04-24] MEDS: METOPROLOL SUCC 50MG EXT REL TAB PO SCH (08:00)
[2019-04-24] MEDS: PANTOprazole 40 MG TAB PO SCH ×2 (08:00→21:23)
[2019-04-24] MEDS: ISOSORBIDE MONO EXTENDED REL 30 MG TABCR PO SCH (08:00)
[2019-04-24] MEDS: ASPIRIN 81 MG ECTAB PO SCH (08:00)
[2019-04-24] MEDS: DOXYCYCLINE HYCLATE 100 MG CAP PO SCH ×2 (08:00→21:23)
[2019-04-24] MEDS: LISINOPRIL 2.5 MG TAB PO SCH (08:00)
[2019-04-24] MEDS ORDERED: ENOXAPARIN INJ 40 MG/0.4 ML SYR SQ SCH (09:00)
--- NOTE | 2019-04-24 11:08 | Cardiology Consultation ---
Date of Consultation April 24, 2019 Assessment & Plan (1) Pneumonia involving right lung: (2) Coronary artery disease: (3) Abnormal ECG: Patient admitted with community-acquired pneumonia. Serial ECGs demonstrate ischemic ST changes involving the inferior and lateral leads. Patient with known chronic diagonal branch vessel occlusion and history of ST changes during stress testing dated 2014. Her troponins are undetectable. No regional wall motion normalities per resting 2D transthoracic echocardiogram. Continue beta-kobi, aspirin, and SIENNA inhibitor. Transition topical nitrates to oral isosorbide monohydrate prior to discharge. Recommend treatment of underlying pneumonia. Ischemic evaluation when stable from a pulmonary perspective. Exercise stress echocardiography versus pharmacologic stress pending clinical course. Continue antibiotics per internal medicine. Cardiology will continue to follow during hospitalization. History of Present Illness Reason for Consultation: Abnormal ECG Requesting Physician: Dr. Alvarez Attending Physician: Laurie Alvarez MD History of Present Illness 64-year-old female presents to the emergency department with cough and chest discomfort. Patient's father approximately 2 weeks ago. Since that time she is noted intermittent discomfort, cough, and scant sputum production. Denies fever or chills. No orthopnea, PND, or lower extremity edema. Reports palpitations described as "heart pounding" while at work yesterday. This occurred occurred in the setting of severe coughing. She came to the emergency room for further evaluation and treatment. Serial ECGs performed. Evidence of significant ST depression in the inferior anterior lateral leads noted which have resolved. Cardiac enzymes are negative x3 sets. ECG changes noted during most recent stress test performed 2014. Carries a history of chronic diagonal branch vessel occlusion as well as moderate LAD (FFR -) and RCA coronary artery disease 08/22/2012. No intervention performed. Up until recent symptoms, patient had been exercising regularly with stable functional capacity. Currently, patient resting comfortably. Denies chest pain or shortness of breath. Notes cough with scant clear sputum production. Sinus rhythm on telemetry. Cardiac enzymes are negative x3 sets. Preliminary review of resting 2D transthoracic echocardiogram demonstrates no regional wall motion on normalities. Allergies Allergy/AdvReac Type Severity Reaction Status Date / Time No Known Allergies Allergy Verified 04/23/19 20:27 Home Medications Home Medications Medication Instructions Recorded Confirmed Type albuterol sulfate [ProAir 2 inh INHALATION QID PRN 03/16/19 04/23/19 History RespiClick] aspirin [Aspirin Low Dose] 81 mg PO QAM 03/16/19 04/23/19 History clonazepam 0.25 mg PO QPM 03/16/19 04/23/19 History estradiol [Vagifem] 10 mcg VAGINAL 2XWK 03/16/19 04/23/19 History fluconazole 200 mg PO Q2D 03/16/19 04/23/19 History isosorbide mononitrate 30 mg PO QAM 03/16/19 04/23/19 History lamotrigine 150 mg PO QPM 03/16/19 04/23/19 History lisinopril 2.5 mg PO QAM 03/16/19 04/23/19 History metoprolol succinate 50 mg PO QAM 03/16/19 04/23/19 History nitroglycerin 0.4 mg SUBLINGUAL DIRECTED PRN 03/16/19 04/23/19 History omega 9-hmg-nvl-fish oil [Fish Oil] 1 cap PO DAILY 03/16/19 04/23/19 History buspirone 7.5 mg PO AMHS 04/23/19 04/23/19 History clobetasol 1 applic TOPICAL BID PRN 04/23/19 04/23/19 History lamotrigine 200 mg PO QAM 04/23/19 04/23/19 History lutein 10 mg PO DAILY 04/23/19 04/23/19 History mometasone [Asmanex Twisthaler] 1 inh INHALATION DAILY 04/23/19 04/23/19 History sp-hr-xzpi-FA-Ca carb-vit K 1 tab PO DAILY 04/23/19 04/23/19 History [One-A-Day Womens Formula] pantoprazole 20 mg PO BID 04/23/19 04/23/19 History rosuvastatin 40 mg PO HS 04/23/19 04/23/19 History Patient History Medical History Environmental allergies DOG DANDER AND DUST Asthma Hx of myocardial infarction 2012 -SEEN [facility] - HAS CATH Hypertension Hyperlipidemia Anxiety Depression Cataract RIGHT EYE GERD (gastroesophageal reflux disease) Rheumatoid arthritis Coronary artery disease (Chronic) Asthma (Chronic) Dyslipidemia (Chronic) Surgical History Hx of cardiac cath 2012 [facility] - NO STENTING Hx of left cataract extraction History of colonoscopy Hx of hernia repair Nausea and vomiting after administration of anesthetic agent Status post cardiac catheterization (Resolved) "08/22/12 [facility]: left main OK LAD 50% proximal + 50% apical 1st diagonal 90% ostial with total occlusion mid segment left circ mild irregularities RCA 30-50% stenoses" Family History Mother Breast cancer Diabetes Brother Diabetes Father , 2 weeks ago Stroke Coronary heart disease Skin cancer Hypertension Social History Preferred Language: Portuguese Communication Ability: Effective Beliefs That Will Affect Care: None Current Living Situation: Spouse current occupational status: employed 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 HEENT: Normocephalic. Atraumatic. Conjunctiva pink, no scleral icterus. Neck: No carotid bruits, the carotid upstrokes are brisk. No JVD. No HJR Heart: Regular normal S-1 and S-2 no S-3 or S-4 gallop. No murmurs or rub appreciated. PMI is not displaced. No RV heave. Lungs: Clear bilateral without rales , rhonchi, or wheeze. Abdomen: Normal bowel sounds. Soft. Nontender. No masses or organomegaly. No abdominal bruits. Extremities: No clubbing, cyanosis, or edema. Pulses: radial=2/4, Dorsalis pedis =2/4, posterior tibial=2/4. Neuro: Cranial nerves grossly intact. No focal motor deficit. Results & Data Vital Signs (Past 12 Hours) Vital Signs Temp Pulse Pulse Resp BP Pulse Ox 04/24/19 07:22 36.7 C 89 18 108/64 95 04/24/19 03:00 36.5 C 84 14 116/69 96 04/23/19 23:05 36.6 C 90 17 128/74 92 Laboratory Results Laboratory Results - last 24 hr 04/23/19 04/23/19 04/23/19 18:08 18:08 18:08 WBC 9.85 RBC 3.94 L Hgb 12.4 Hct 35.6 L MCV 90.4 MCH 31.5 MCHC 34.8 RDW Std Deviation 40.8 RDW Coeff of Vinayak 12.3 Plt Count 256 MPV 9.4 Immature Gran % (Auto) 0.2 Neut % (Auto) 71.1 Lymph % (Auto) 15.7 Warren % (Auto) 11.9 Eos % (Auto) 0.9 Baso % (Auto) 0.2 Immature Gran # (Auto) 0.02 Neut # (Auto) 7.00 H Lymph # (Auto) 1.55 Warren # (Auto) 1.17 H Eos # (Auto) 0.09 Baso # (Auto) 0.02 PT 11.0 INR 1.1 APTT 28.8 PTT Ratio 1.1 D-Dimer 410 Sodium 136 Potassium 4.1 Chloride 101 Carbon Dioxide 29 Anion Gap 6.0 BUN 20 H Creatinine 1.03 Est Cr Clr Drug Dosing 42.7 Est GFR ( Amer) 66.1 Est GFR (Non-Af Amer) 57.0 BUN/Creatinine Ratio 19.1 Glucose 100 H Estimat Average Glucose Hemoglobin A1c Lactate Calcium 9.8 Magnesium 2.2 Total Bilirubin 0.4 AST 389 H ALT 272 H Alkaline Phosphatase 156 H Troponin I < 0.015 NT-Pro-B Natriuret Pep 145 Total Protein 7.4 Albumin 3.4 Globulin 4.0 Albumin/Globulin Ratio 0.8 L Triglycerides Cholesterol LDL Cholesterol, Calc VLDL Cholesterol, Calc HDL Cholesterol Cholesterol/HDL Ratio Lipase Procalcitonin TSH 1.090 Urine Color Urine Appearance Urine pH Ur Specific [place] Urine Protein Urine Glucose (UA) Urine Ketones Urine Blood Urine Nitrite Urine Bilirubin Urine Urobilinogen Ur Leukocyte Esterase Urine WBC (Auto) Urine RBC (Auto) U Hyaline Cast (Auto) U Epithel Cells (Auto) Urine Bacteria (Auto) Anti-Mitochondrial Ab Hepatitis A IgM Ab Hep Bs Antigen Hep B Core IgM Ab Hepatitis C Antibody Influenza Type A (PCR) Influenza Type B (PCR) Mycoplasma pneumon IgG Mycoplasma pneumon IgM 04/23/19 04/23/19 04/23/19 18:08 19:49 20:46 WBC RBC Hgb Hct MCV MCH MCHC RDW Std Deviation RDW Coeff of Vinayak Plt Count MPV Immature Gran % (Auto) Neut % (Auto) Lymph % (Auto) [place] % (Auto) Eos % (Auto) Baso % (Auto) Immature Gran # (Auto) Neut # (Auto) Lymph # (Auto) [place] # (Auto) Eos # (Auto) Baso # (Auto) PT INR APTT PTT Ratio D-Dimer Sodium Potassium Chloride Carbon Dioxide Anion Gap BUN Creatinine Est Cr Clr Drug Dosing Est GFR ( Amer) Est GFR (Non-Af Amer) BUN/Creatinine Ratio Glucose Estimat Average Glucose Hemoglobin A1c Lactate 0.9 Calcium Magnesium Total Bilirubin AST ALT Alkaline Phosphatase Troponin I NT-Pro-B Natriuret Pep Total Protein Albumin Globulin Albumin/Globulin Ratio Triglycerides Cholesterol LDL Cholesterol, Calc VLDL Cholesterol, Calc HDL Cholesterol Cholesterol/HDL Ratio Lipase 148 Procalcitonin TSH Urine Color Urine Appearance Urine pH Ur Specific [place] Urine Protein Urine Glucose (UA) Urine Ketones Urine Blood Urine Nitrite Urine Bilirubin Urine Urobilinogen Ur Leukocyte Esterase Urine WBC (Auto) Urine RBC (Auto) U Hyaline Cast (Auto) U Epithel Cells (Auto) Urine Bacteria (Auto) Anti-Mitochondrial Ab Hepatitis A IgM Ab Hep Bs Antigen Hep B Core IgM Ab Hepatitis C Antibody Influenza Type A (PCR) Neg for Influ A Influenza Type B (PCR) Neg for Influ B Mycoplasma pneumon IgG Mycoplasma pneumon IgM 04/23/19 04/23/19 04/23/19 20:46 21:40 21:57 WBC RBC Hgb Hct MCV MCH MCHC RDW Std Deviation RDW Coeff of Vinayak Plt Count MPV Immature Gran % (Auto) Neut % (Auto) Lymph % (Auto) [place] % (Auto) Eos % (Auto) Baso % (Auto) Immature Gran # (Auto) Neut # (Auto) Lymph # (Auto) [place] # (Auto) Eos # (Auto) Baso # (Auto) PT INR APTT PTT Ratio D-Dimer Sodium Potassium Chloride Carbon Dioxide Anion Gap BUN Creatinine Est Cr Clr Drug Dosing Est GFR ( Amer) Est GFR (Non-Af Amer) BUN/Creatinine Ratio Glucose Estimat Average Glucose Hemoglobin A1c Lactate Calcium Magnesium Total Bilirubin AST ALT Alkaline Phosphatase Troponin I < 0.015 NT-Pro-B Natriuret Pep Total Protein Albumin Globulin Albumin/Globulin Ratio Triglycerides Cholesterol LDL Cholesterol, Calc VLDL Cholesterol, Calc HDL Cholesterol Cholesterol/HDL Ratio Lipase Procalcitonin 0.11 TSH Urine Color Yellow Urine Appearance Clear Urine pH 6.0 Ur Specific [place] > 1.045 H Urine Protein Trace H Urine Glucose (UA) Negative Urine Ketones Trace H Urine Blood Negative Urine Nitrite Negative Urine Bilirubin Negative Urine Urobilinogen Negative Ur Leukocyte Esterase Negative Urine WBC (Auto) 1-5 Urine RBC (Auto) 0-4 U Hyaline Cast (Auto) 0 U Epithel Cells (Auto) 10-20 H Urine Bacteria (Auto) Negative Anti-Mitochondrial Ab Hepatitis A IgM Ab Hep Bs Antigen Hep B Core IgM Ab Hepatitis C Antibody Influenza Type A (PCR) Influenza Type B (PCR) Mycoplasma pneumon IgG Mycoplasma pneumon IgM 04/24/19 04/24/19 04/24/19 01:28 05:18 05:18 WBC 8.35 RBC 3.48 L Hgb 10.7 L Hct 31.5 L MCV 90.5 MCH 30.7 MCHC 34.0 RDW Std Deviation 41.1 RDW Coeff of Vinayak 12.5 Plt Count 223 MPV 9.3 Immature Gran % (Auto) 0.2 Neut % (Auto) 65.5 Lymph % (Auto) 19.3 Warren % (Auto) 12.8 Eos % (Auto) 1.7 Baso % (Auto) 0.5 Immature Gran # (Auto) 0.02 Neut # (Auto) 5.47 Lymph # (Auto) 1.61 [place] # (Auto) 1.07 H Eos # (Auto) 0.14 Baso # (Auto) 0.04 PT INR APTT PTT Ratio D-Dimer Sodium 140 Potassium 4.1 Chloride 106 Carbon Dioxide 28 Anion Gap 6.0 BUN 12 Creatinine 0.79 Est Cr Clr Drug Dosing 56.2 Est GFR ( Amer) 91.0 Est GFR (Non-Af Amer) 78.6 BUN/Creatinine Ratio 15.9 Glucose 98 Estimat Average Glucose Hemoglobin A1c Lactate Calcium 9.1 Magnesium Total Bilirubin 0.4 AST 183 H ALT 212 H Alkaline Phosphatase 137 H Troponin I < 0.015 < 0.015 NT-Pro-B Natriuret Pep Total Protein 6.3 L Albumin 2.7 L Globulin 3.6 Albumin/Globulin Ratio 0.8 L Triglycerides 66 Cholesterol 119 LDL Cholesterol, Calc 35 VLDL Cholesterol, Calc 13 HDL Cholesterol 71 Cholesterol/HDL Ratio 2 Lipase Procalcitonin TSH Urine Color Urine Appearance Urine pH Ur Specific [place] Urine Protein Urine Glucose (UA) Urine Ketones Urine Blood Urine Nitrite Urine Bilirubin Urine Urobilinogen Ur Leukocyte Esterase Urine WBC (Auto) Urine RBC (Auto) U Hyaline Cast (Auto) U Epithel Cells (Auto) Urine Bacteria (Auto) Anti-Mitochondrial Ab Hepatitis A IgM Ab Hep Bs Antigen Hep B Core IgM Ab Hepatitis C Antibody Influenza Type A (PCR) Influenza Type B (PCR) Mycoplasma pneumon IgG Mycoplasma pneumon IgM 04/24/19 04/24/19 04/24/19 05:18 10:05 10:05 WBC RBC Hgb Hct MCV MCH MCHC RDW Std Deviation RDW Coeff of Vinayak Plt Count MPV Immature Gran % (Auto) Neut % (Auto) Lymph % (Auto) [place] % (Auto) Eos % (Auto) Baso % (Auto) Immature Gran # (Auto) Neut # (Auto) Lymph # (Auto) [place] # (Auto) Eos # (Auto) Baso # (Auto) PT INR APTT PTT Ratio D-Dimer Sodium Potassium Chloride Carbon Dioxide Anion Gap BUN Creatinine Est Cr Clr Drug Dosing Est GFR ( Amer) Est GFR (Non-Af Amer) BUN/Creatinine Ratio Glucose Estimat Average Glucose 123 Hemoglobin A1c 5.9 H Lactate Calcium Magnesium Total Bilirubin AST ALT Alkaline Phosphatase Troponin I NT-Pro-B Natriuret Pep Total Protein Albumin Globulin Albumin/Globulin Ratio Triglycerides Cholesterol LDL Cholesterol, Calc VLDL Cholesterol, Calc HDL Cholesterol Cholesterol/HDL Ratio Lipase Procalcitonin TSH Urine Color Urine Appearance Urine pH Ur Specific [place] Urine Protein Urine Glucose (UA) Urine Ketones Urine Blood Urine Nitrite Urine Bilirubin Urine Urobilinogen Ur Leukocyte Esterase Urine WBC (Auto) Urine RBC (Auto) U Hyaline Cast (Auto) U Epithel Cells (Auto) Urine Bacteria (Auto) Anti-Mitochondrial Ab Pending Hepatitis A IgM Ab Pending Hep Bs Antigen Pending Hep B Core IgM Ab Pending Hepatitis C Antibody Pending Influenza Type A (PCR) Influenza Type B (PCR) Mycoplasma pneumon IgG Pending Mycoplasma pneumon IgM Pending
[2019-04-24 11:12] LABS: Hepatitis B Surface Antigen Neg (Neg)
[2019-04-24 11:41] LABS: Hepatitis C IgG 13Yrs+Old_Rflx Neg (Neg)
--- NOTE | 2019-04-24 15:53 | Hospitalist Progress Note ---
Date of Service April 24, 2019 Assessment & Plan (1) Pneumonia involving right lung: This is a 64-year-old female who has significant past medical history of CAD, HTN, HLD, depression and anxiety, CKD stage III who presents to [facility] ED secondary to cough and shortness of breath x3 days. CXR and CT Chest concerning for R upper/mid PNA CT of the chest is confirmatory Ddx: Viral PNA, atypical pna, bacterial PNA, legionella, Has been on doxycycline Clinically improving (2) Abnormal EKG: noted on admission initial troponin negative recommend cycle trop x 3 repeat ecg-remains unremarkable echocardiogram-no regional wall motion abnormalities, EF 60 to 65%, diastolic dysfunction grade 2, mild tricuspid regurgitation and no pulmonary hypertension Appreciate cardiology input and recommendation Symptoms are not likely due to cardiac causes (3) Elevated LFTs: AST 389, ALT 272, alk phos 156, total bilirubin WNL Labs reviewed from 09/2018 revealed unremarkable LFTs Patient asymptomatic without any GI symptoms Would recommend obtaining right upper quadrant ultrasound, holding statin and hepatitis panel The son of the gallbladder did not show any gallstones Hepatitis panel and antimitochondrial antibody have been ordered Legionella antigen and mycoplasma antibody have been ordered to (4) Coronary artery disease: Currently no chest pain or shortness of breath Patient does have EKG changes with T wave inversions inferiorly On aspirin, Crestor, metoprolol, lisinopril, Imdur as outpatient Initial troponin negative Recommend cycle troponin x3 Repeat EKG Recommend obtain echocardiogram in a.m. Appreciate cardiology input Doubt any cardiac origin of the symptoms (5) Hypertension: blood pressure improved on my exam 120/80s continue metoprolol, lisinopril, Imdur Monitor (6) Dyslipidemia: on crestor elevated LFTS, ? if in setting of crestor plan per Dr. Vogt (7) Asthma: no acute exac despite PNA dx continue asthmanex, prn albuterol (8) Acute stress reaction: Father 2 weeks ago increased depression/anx because of this monitor closely (9) Depression with anxiety: continue lamictal, buspar, clonazepam increased anx with recent passing of father (10) GERD (gastroesophageal reflux disease): continue PPI (11) DVT prophylaxis: Follow up: PCP Dr. Monroy upon discharge Subjective 04/24 The patient was seen and examined in telemetry unit She is anxious otherwise denies any symptoms Cough and shortness of breath have improved Denies any chest pain and/or palpitation Review of Systems Review of Systems: All systems reviewed and are unremarkable except as noted below Respiratory: + cough; no dyspnea Cardiovascular: no chest pain and no edema Physical Exam Physical Exam: Lying in bed comfortably Constitutional: + ill appearing; no acute distress Eyes: PERRL, conjunctivae normal, anicteric sclerae ENMT: external ear and nose normal, oropharynx normal Neck: trachea midline, no thyromegaly Respiratory: normal respiratory effort; no respiratory distress Auscultation: + diminished lung sounds (Right side with occasional crackles) Cardiovascular: Rate/Rhythm: regular rate and regular rhythm Heart Sounds: no murmur Gastrointestinal (Abdomen): Inspection/Auscultation: abdomen normal to inspection and normal bowel sounds; abdomen not distended P ercussion/Palpation: abdomen soft Musculoskeletal: No acute arthritis in any joints Neurologic: moves all extremities; no focal motor deficits Alert, awake and oriented x3 Results & Data Vital Signs (Past 12 Hours) Vital Signs Temp Pulse Resp BP BP Pulse Ox 04/24/19 15:18 37.0 C 88 18 124/70 96 04/24/19 11:12 36.8 C 88 18 106/64 95 04/24/19 07:22 36.7 C 89 18 108/64 95 Laboratory Results Short CBC 04/23/19 04/24/19 Range/Units 18:08 05:18 WBC 9.85 8.35 (4.8-10.8) K/uL Hgb 12.4 10.7 L (12.0-16.0) g/dL Hct 35.6 L 31.5 L (37-47) % Plt Count 256 223 (130-400) K/uL BMP 04/23/19 04/24/19 18:08 05:18 Sodium 136 140 Potassium 4.1 4.1 Chloride 101 106 Carbon Dioxide 29 28 BUN 20 H 12 Creatinine 1.03 0.79 Glucose 100 H 98 Calcium 9.8 9.1 Cardiac Enzymes 04/23/19 04/23/19 04/24/19 Range/Units 18:08 21:40 01:28 Troponin I < 0.015 < 0.015 < 0.015 (0-0.045) ng/ml 04/24/19 Range/Units 05:18 Troponin I < 0.015 (0-0.045) ng/ml Liver Function 04/23/19 04/24/19 Range/Units 18:08 05:18 Total Bilirubin 0.4 0.4 (0.2-1) mg/dl AST 389 H 183 H (15-37) U/L ALT 272 H 212 H (12-78) U/L Alkaline Phosphatase 156 H 137 H (45-117) U/L Albumin 3.4 2.7 L (3.4-5.0) gm/dl Urine 04/23/19 Range/Units 20:46 Urine Color Yellow Urine Appearance Clear (Clear) Urine pH 6.0 (4.5-7.5) Ur Specific [place] > 1.045 H (1.000-1.030) Urine Protein Trace H (Negative) Urine Glucose (UA) Negative (Negative) Medications Administered Current Inpatient Medications Acetaminophen (Tylenol) 325 mg PO Q6H PRN PRN Reason: Pain or Fever Stop: 05/23/19 23:04 Last Admin: 04/24/19 05:53 Dose: 325 mg Documented by: Aspirin (Ecotrin Ectab) 81 mg PO QAM [facility] Stop: 05/24/19 08:59 Last Admin: 04/24/19 08:00 Dose: 81 mg Documented by: Buspirone HCl (Buspar) 7.5 mg PO BID [facility] Stop: 05/23/19 23:04 Last Admin: 04/24/19 07:59 Dose: 7.5 mg Documented by: Clonazepam (Klonopin) 0.25 mg PO QPM [facility] Stop: 05/24/19 20:59 Doxycycline Hyclate (Vibramycin) 100 mg PO BID [facility] Stop: 05/01/19 08:59 Last Admin: 04/24/19 08:00 Dose: 100 mg Documented by: Enoxaparin Sodium (Lovenox) 30 mg SQ QAM [facility] Stop: 05/24/19 08:59 Last Admin: 04/24/19 07:57 Dose: 30 mg Documented by: Guaifenesin (Mucinex) 600 mg PO Q12 [facility] Stop: 05/23/19 23:04 Last Admin: 04/24/19 08:01 Dose: 600 mg Documented by: Lorazepam (Ativan) 0.5 mg in 1 mls @ 1 mls/min IV Q4H PRN PRN Reason: Anxiety/Agitation Stop: 05/23/19 23:04 Promethazine HCl 12.5 mg/ (Sodium Chloride) 50.5 mls @ 202 mls/hr IV Q6H PRN PRN Reason: Nausea And Vomiting Stop: 05/23/19 23:04 Potassium Chloride/Sodium Chloride (Normal Saline W/20 Meq Kcl) 20 meq in 1,000 mls @ 50 mls/hr IV .Q20H ONE Stop: 04/24/19 19:04 Last Admin: 04/24/19 00:04 Dose: 50 mls/hr Documented by: Ipratropium [place] (Atrovent 0.02% 0.5mg/2.5ml) 0.5 mg INH Q4H PRN PRN Reason: Shortness Of Breath Or Wheezing Stop: 05/23/19 23:04 Isosorbide Mononitrate (Imdur Extended Rel) [facility] Stop: 05/24/19 08:59 Last Admin: 04/24/19 08:00 Dose: 30 mg Documented by: Lamotrigine (Lamictal) 150 mg PO QPM [facility] Stop: 05/24/19 00:14 Last Admin: 04/24/19 00:14 Dose: 150 mg Documented by: Lamotrigine (Lamictal) 200 mg PO QAM [facility] Stop: 05/24/19 08:59 Last Admin: 04/24/19 08:01 Dose: 200 mg Documented by: Levalbuterol HCl (Xopenex 1.25mg/0.5ml Neb) 1.25 mg INH Q4H PRN PRN Reason: Shortness Of Breath Or Wheezing Stop: 05/23/19 23:04 Lisinopril (Zestril) 2.5 [facility] [place] Stop: 05/24/19 08:59 Last Admin: 04/24/19 08:00 Dose: 2.5 mg Documented by: Metoprolol Succinate (Toprol Xl) 50 mg PO QAM [facility] Stop: 05/24/19 08:59 Last Admin: 04/24/19 08:00 Dose: 50 mg Documented by: Mometasone Furoate (Asmanex 220mcg) 1 puffs INH DAILY [facility] Stop: 05/24/19 08:59 Last Admin: 04/24/19 07:58 Dose: 1 puffs Documented by: Morphine Sulfate (Morphine Sulfate) 4 mg IV Q4H PRN PRN Reason: Pain Stop: 05/07/19 23:04 Nitroglycerin (Nitro-Bid 2%) 1 inch EXT Q6 TRUDI Stop: 05/24/19 00:00 Last Admin: 04/24/19 12:19 Dose: 1 inch Documented by: Pantoprazole Sodium (Protonix) 40 mg PO BID TRUDI Stop: 05/24/19 08:59 Last Admin: 04/24/19 08:00 Dose: 40 mg Documented by: Tramadol HCl (Ultram) 25 - 50 mg PO Q4H PRN PRN Reason: Pain Stop: 05/23/19 23:04
[2019-04-24] MEDS ORDERED: clonazePAM 0.5 MG TAB PO SCH (21:00)
[2019-04-25] MEDS: ACETAMINOPHEN 325 MG TAB PO PRN (03:38)
[2019-04-25] MEDS ORDERED: COUGH DROP (SUGAR FREE) LOZ 24 LOZ/1 BOX BUCCAL ONE (03:42)
[2019-04-25] MEDS: NITROGLYCERIN 2% OINTMENT 30GM TUBE EXT SCH ×3 (05:27→13:02)
[2019-04-25] MEDS ORDERED: COUGH DROP (SUGAR FREE) LOZ 24 LOZ/1 BOX BUCCAL STA (05:34)
[2019-04-25 05:49] LABS: Basophils # (auto) 0.02 K/uL (0-0.2); Basophils % (auto) 0.2 %; Eosinophils # (auto) 0.15 K/uL (0-0.5); Eosinophils % (auto) 1.6 %; Hematocrit (blood only) 33.4 % (37-47); Hemoglobin 11.2 g/dL (12.0-16.0); Immature Granulocytes # (auto) 0.03 K/uL (0.00-0.02); Immature Granulocytes % (auto) 0.3 %; Lymphocytes # (auto) 1.43 K/uL (1.2-3.4); Lymphocytes % (auto) 15.4 %; Mean Corpuscular Hemoglobin 30.4 pg (25-34); Mean Corpuscular Hgb Conc 33.5 g/dL (32-36); Mean Corpuscular Volume 90.8 fL (80-100); Mean Platelet Volume 9.5 fL (7.4-10.4); Monocytes # (auto) 1.16 K/uL (0.11-0.59); Monocytes % (auto) 12.5 %; Neutrophils # (auto) 6.47 K/uL (1.4-6.5); Platelet Count 268 K/uL (130-400); RDW Coefficient of Variation 12.3 % (11.5-14.5); RDW Standard Deviation 41.4 fL (36.4-46.3); Red Blood Count 3.68 M/uL (4.2-5.4); White Blood Count 9.26 K/uL (4.8-10.8)
[2019-04-25 06:15] LABS: Albumin Level 2.7 gm/dl (3.4-5.0); BUN Creatinine Ratio 18.5 (10-20); Creatinine Clr Calc Pharmacy 47.4 ml/min; Est GFR (African American) 75.7; Est GFR (Non-African American) 65.3; Potassium 3.9 mmol/L (3.5-5.1)
[2019-04-25 06:17] LABS: Albumin Globulin Ratio 0.7 (0.9-2); Bilirubin,Total 0.4 mg/dl (0.2-1); Globulin 3.8 gm/dl (2.5-4.0); Total Protein 6.5 gm/dl (6.4-8.2)
[2019-04-25] MEDS: MOMETASONE FUROATE 14 PUFF/1 INHALER INH SCH (08:01)
[2019-04-25] MEDS: LISINOPRIL 2.5 MG TAB PO SCH (08:02)
[2019-04-25] MEDS: lamoTRIgine 100 MG TAB PO SCH (08:02)
[2019-04-25] MEDS: METOPROLOL SUCC 50MG EXT REL TAB PO SCH (08:02)
[2019-04-25] MEDS: PANTOprazole 40 MG TAB PO SCH (08:02)
[2019-04-25] MEDS: ISOSORBIDE MONO EXTENDED REL 30 MG TABCR PO SCH (08:02)
[2019-04-25] MEDS: BusPIRone 15 MG TAB PO SCH (08:02)
[2019-04-25] MEDS: DOXYCYCLINE HYCLATE 100 MG CAP PO SCH (08:02)
[2019-04-25] MEDS: ENOXAPARIN INJ 30 MG/0.3 ML SYR SQ SCH (08:03)
[2019-04-25] MEDS: ASPIRIN 81 MG ECTAB PO SCH (08:03)
[2019-04-25] MEDS: guaiFENesin 600 MG TABCR PO SCH (08:03)
--- NOTE | 2019-04-25 11:28 | Cardiology Progress Note ---
Date of Service April 25, 2019 Assessment & Plan (1) Pneumonia involving right lung: (2) Coronary artery disease: (3) Abnormal ECG: Patient admitted with community-acquired pneumonia. Serial ECGs demonstrate transient borderline ischemic ST changes involving the inferior and lateral leads. Patient with known chronic diagonal branch vessel occlusion and history of ST changes during stress testing dated 2014. Her troponins are undetectable. No regional wall motion normalities per resting 2D transthoracic echocardiogram. Continue beta-kobi, aspirin, and SIENNA inhibitor. Transition topical nitrates to oral isosorbide monohydrate prior to discharge. Patient clinically improved after treatment of pneumonia Stable for discharge from cardiac standpoint Patient will require follow-up with cardiology to schedule stress testing in the future Subjective Patient seen and examined, chart, medications, telemetry reviewed. No cardiac complaints but still with cough intermittently No chest pain or discomfort no tachypalpitations Patient ambulatory in room and hallway without difficulties. Physical Exam Constitutional: + thin; no acute distress Eyes: PERRL, conjunctivae normal, anicteric sclerae ENMT: external ear and nose normal, oropharynx normal Neck: trachea midline, no thyromegaly Respiratory: normal respiratory effort, lungs clear to auscultation Scattered wheezes at the right base worse with cough Cardiovascular: Rate/Rhythm: regular rate and regular rhythm Heart Sounds: normal S1 and normal S2; no gallop and no murmur Palpation: normal PMI Vessels: normal carotid upstroke and radial pulses present; no JVD and no carotid bruit Extremities: no edema Gastrointestinal (Abdomen): normal bowel sounds, soft, nontender, no hepatosplenomegaly Musculoskeletal: no cyanosis or clubbing, extremities motor strength 5/5 Skin: no rashes, warm and dry Neurologic: PERRL, EOMI, accommodation nl, no face palsy, no dysarthria Psychiatric: A+Ox3, euthymic affect Results & Data Vital Signs (Past 12 Hours) Vital Signs Temp Pulse Pulse Resp BP BP Pulse Ox 04/25/19 10:55 36.8 C 83 16 103/65 96 04/25/19 06:55 36.6 C 94 H 16 126/72 96 04/25/19 03:55 105 H 20 95 04/25/19 03:54 36.8 C 110 H 20 121/73 94 04/25/19 00:08 36.6 C 89 18 116/70 95 04/25/19 00:00 96 H Laboratory Results Laboratory Results - last 24 hr 04/24/19 04/25/19 04/25/19 10:05 05:20 05:20 WBC 9.26 RBC 3.68 L Hgb 11.2 L Hct 33.4 L MCV 90.8 MCH 30.4 MCHC 33.5 RDW Std Deviation 41.4 RDW Coeff of Vinayak 12.3 Plt Count 268 MPV 9.5 Immature Gran % (Auto) 0.3 Neut % (Auto) 70.0 Lymph % (Auto) 15.4 Hitchcock % (Auto) 12.5 Eos % (Auto) 1.6 Baso % (Auto) 0.2 Immature Gran # (Auto) 0.03 H Neut # (Auto) 6.47 Lymph # (Auto) 1.43 Hitchcock # (Auto) 1.16 H Eos # (Auto) 0.15 Baso # (Auto) 0.02 Sodium 140 Potassium 3.9 Chloride 106 Carbon Dioxide 27 Anion Gap 7.0 BUN 17 Creatinine 0.92 Est Cr Clr Drug Dosing 47.4 Est GFR ( Amer) 75.7 Est GFR (Non-Af Amer) 65.3 BUN/Creatinine Ratio 18.5 Glucose 102 H Calcium 9.0 Total Bilirubin 0.4 AST 107 H ALT 175 H Alkaline Phosphatase 173 H Total Protein 6.5 Albumin 2.7 L Globulin 3.8 Albumin/Globulin Ratio 0.7 L Hepatitis C Antibody Neg
--- NOTE | 2019-04-25 13:05 | Hospitalist Progress Note ---
Date of Service April 25, 2019 Assessment & Plan (1) Pneumonia involving right lung: This is a 64-year-old female who has significant past medical history of CAD, HTN, HLD, depression and anxiety, CKD stage III who presents to [facility] ED secondary to cough and shortness of breath x3 days. CXR and CT Chest concerning for R upper/mid PNA CT of the chest is confirmatory Ddx: Viral PNA, atypical pna, bacterial PNA, legionella, Has been on doxycycline Much better as of this morning Except cough she denies any other symptoms Will be discharged home this afternoon (2) Abnormal EKG: noted on admission initial troponin negative recommend cycle trop x 3 repeat ecg-remains unremarkable echocardiogram-no regional wall motion abnormalities, EF 60 to 65%, diastolic dysfunction grade 2, mild tricuspid regurgitation and no pulmonary hypertension Appreciate cardiology input and recommendation Symptoms are not likely due to cardiac causes Will have outpatient stress test as per cardiology (3) Elevated LFTs: AST 389, ALT 272, alk phos 156, total bilirubin WNL Labs reviewed from 09/2018 revealed unremarkable LFTs Patient asymptomatic without any GI symptoms Would recommend obtaining right upper quadrant ultrasound, holding statin and hepatitis panel The son of the gallbladder did not show any gallstones Hepatitis panel and antimitochondrial antibody have been ordered Legionella antigen and mycoplasma antibody have been ordered to Hepatitis a IgM is pending, hepatitis B core IgM antibodies pending, mycoplasma pneumonia pending and antimitochondrial antibody is pending Liver functions continue to improve Will discharge home this afternoon and have a repeat liver panel in 1 week (4) Coronary artery disease: Currently no chest pain or shortness of breath Patient does have EKG changes with T wave inversions inferiorly On aspirin, Crestor, metoprolol, lisinopril, Imdur as outpatient Initial troponin negative Recommend cycle troponin x3 Repeat EKG Recommend obtain echocardiogram in a.m. Appreciate cardiology input Continue aspirin, beta-kobi, isosorbide mononitrate and SIENNA inhibitor (5) Hypertension: blood pressure improved on my exam 120/80s continue metoprolol, lisinopril, Imdur Monitor (6) Dyslipidemia: on crestor elevated LFTS, ? if in setting of crestor plan per Dr. Vogt (7) Asthma: no acute exac despite PNA dx continue asthmanex, prn albuterol Will need nebulized bronchodilator at home as needed (8) Acute stress reaction: Father 2 weeks ago increased depression/anx because of this monitor closely (9) Depression with anxiety: continue lamictal, buspar, clonazepam increased anx with recent passing of father (10) GERD (gastroesophageal reflux disease): continue PPI (11) DVT prophylaxis: Follow up: PCP Dr. Monroy upon discharge Discharge home this afternoon Subjective 04/24 The patient was seen and examined in telemetry unit She is anxious otherwise denies any symptoms Cough and shortness of breath have improved Denies any chest pain and/or palpitation 04/25 The patient was seen and examined in telemetry unit She has been feeling a lot better Only complain is ongoing cough but has been improving Denies any chest pain and/or palpitation, no fever and/or chills Wants to go home today Review of Systems Review of Systems: All systems reviewed and are unremarkable except as noted below Respiratory: + cough; no dyspnea Physical Exam Physical Exam: Lying in bed comfortably without any symptoms Constitutional: no acute distress and not ill appearing Eyes: PERRL, conjunctivae normal, anicteric sclerae ENMT: external ear and nose normal, oropharynx normal Neck: trachea midline, no thyromegaly Respiratory: normal respiratory effort; no respiratory distress Auscult ation: + diminished lung sounds (Right side with occasional crackles) Cardiovascular: Rate/Rhythm: regular rate and regular rhythm Heart Sounds: no murmur Gastrointestinal (Abdomen): Inspection/Auscultation: abdomen normal to inspection and normal bowel sounds; abdomen not distended Percussion/Palpation: abdomen soft Musculoskeletal: No acute arthritis in any joints Neurologic: moves all extremities; no focal motor deficits Results & Data Vital Signs (Past 12 Hours) Vital Signs Temp Pulse Resp BP BP Pulse Ox 04/25/19 10:55 36.8 C 83 16 103/65 96 04/25/19 06:55 36.6 C 94 H 16 126/72 96 04/25/19 03:55 105 H 20 95 04/25/19 03:54 36.8 C 110 H 20 121/73 94 Laboratory Results Short CBC 04/25/19 Range/Units 05:20 WBC 9.26 (4.8-10.8) K/uL Hgb 11.2 L (12.0-16.0) g/dL Hct 33.4 L (37-47) % Plt Count 268 (130-400) K/uL BMP 04/25/19 05:20 Sodium 140 Potassium 3.9 Chloride 106 Carbon Dioxide 27 BUN 17 Creatinine 0.92 Glucose 102 H Calcium 9.0 Liver Function 04/25/19 Range/Units 05:20 Total Bilirubin 0.4 (0.2-1) mg/dl AST 107 H (15-37) U/L ALT 175 H (12-78) U/L Alkaline Phosphatase 173 H (45-117) U/L Albumin 2.7 L (3.4-5.0) gm/dl Medications Administered Current Inpatient Medications Acetaminophen (Tylenol) 325 mg PO Q6H PRN PRN Reason: Pain or Fever Stop: 05/23/19 23:04 Last Admin: 04/25/19 03:38 Dose: 325 mg Documented by: Aspirin (Ecotrin Ectab) 81 mg PO QAM [facility] Stop: 05/24/19 08:59 Last Admin: 04/25/19 08:03 Dose: 81 mg Documented by: Buspirone HCl (Buspar) 7.5 mg PO BID [facility] Stop: 05/23/19 23:04 Last Admin: 04/25/19 08:02 Dose: 7.5 mg Documented by: Clonazepam (Klonopin) 0.25 mg PO QPM [facility] Stop: 05/24/19 20:59 Last Admin: 04/24/19 21:24 Dose: 0.25 mg Documented by: Doxycycline Hyclate (Vibramycin) 100 mg PO BID [facility] Stop: 05/01/19 08:59 Last Admin: 04/25/19 08:02 Dose: 100 mg Documented by: Enoxaparin Sodium (Lovenox) 30 mg SQ QAM [facility] Stop: 05/24/19 08:59 Last Admin: 04/25/19 08:03 Dose: 30 mg Documented by: Guaifenesin (Mucinex) 600 mg PO Q12 [facility] Stop: 05/23/19 23:04 Last Admin: 04/25/19 08:03 Dose: 600 mg Documented by: Lorazepam (Ativan) 0.5 mg in 1 mls @ 1 mls/min IV Q4H PRN PRN Reason: Anxiety/Agitation Stop: 05/23/19 23:04 Promethazine HCl 12.5 mg/ (Sodium Chloride) 50.5 mls @ 202 mls/hr IV Q6H PRN PRN Reason: Nausea And Vomiting Stop: 05/23/19 23:04 Ipratropium Dowell (Atrovent 0.02% 0.5mg/2.5ml) 0.5 mg INH Q4H PRN PRN Reason: Shortness Of Breath Or Wheezing Stop: 05/23/19 23:04 Last Admin: 04/25/19 03:48 Dose: 0.5 mg Documented by: Isosorbide [facility]onitrate (Imdur Extended Rel) [facility] Stop: 05/24/19 08:59 Last Admin: 04/25/19 08:02 Dose: 30 mg Documented by: Lamotrigine (Lamictal) 150 mg PO QPM [facility] Stop: 05/24/19 00:14 Last Admin: 04/24/19 21:25 Dose: 150 mg Documented by: Lamotrigine (Lamictal) 200 mg PO [facility] Stop: 05/24/19 08:59 Last Admin: 04/25/19 08:02 Dose: 200 mg Documented by: Levalbuterol HCl (Xopenex 1.25mg/0.5ml Neb) 1.25 mg INH Q4H PRN PRN Reason: Shortness Of Breath Or Wheezing Stop: 05/23/19 23:04 Last Admin: 04/25/19 03:55 Dose: 1.25 mg Documented by: Lisinopril (Zestril) [facility] Stop: 05/24/19 08:59 Last Admin: 04/25/19 08:02 Dose: 2.5 mg Documented by: Metoprolol Succinate (Toprol Xl) [facility] Stop: 05/24/19 08:59 Last Admin: 04/25/19 08:02 Dose: 50 mg Documented by: Mometasone Furoate (Asmanex 220mcg) 1 puffs INH DAILY [facility] Stop: 05/24/19 08:59 Last Admin: 04/25/19 08:01 Dose: 1 puffs Documented by: Morphine Sulfate (Morphine Sulfate) 4 mg IV Q4H PRN PRN Reason: Pain Stop: 05/07/19 23:04 Nitroglycerin (Nitro-Bid 2%) 1 inch EXT Q6 [facility] Stop: 05/24/19 00:00 Last Admin: 04/25/19 05:27 Dose: Not Given Documented by: Pantoprazole Sodium (Protonix) 40 mg PO BID [facility] Stop: 05/24/19 08:59 Last Admin: 04/25/19 08:02 Dose: 40 mg Documented by: Tramadol HCl (Ultram) 25 - 50 mg PO Q4H PRN PRN Reason: Pain Stop: 05/23/19 23:04 Last Admin: 04/25/19 04:31 Dose: 50 mg Documented by:
--- NOTE | 2019-04-27 10:30 | Discharge Summary ---
Date of Service April 27, 2019 Admission HPI Per Admitting Provider This is a 64-year-old female who has significant past medical history of CAD, HTN, HLD, depression and anxiety, CKD stage III who presents to [facility] ED secondary to cough and shortness of breath x3 days. Over the past 3 days patient has developed a harsh cough, occasionally productive of white clear sputum, shortness of breath, chest tightness and heart palpitations. Today while at work patient felt like her heart was racing and continued to have persistent cough; therefore, she came to ED for further evaluation. "I have hx of heart attack and was concerned maybe it was that." She denies any recent fever, chills, sweats, lightheadedness, dizziness, syncope, sinus congestion, rhinorrhea, sore throat, dmitry chest pain, hemoptysis, HUDSON, nausea, vomiting, abdominal pain change in bowel or urinary habits. Her appetite has otherwise been unremarkable. She denies any weight loss or weight gain. She denies any edema, PND orthopnea. Over the past 2 weeks she has been very stressed secondary to losing her father and thought may be her heart racing was due to that. Over the past 2 weeks she has noticed intermittent heart racing but was more persistent today which prompted her to seek evaluation. She has been compliant with all of her medications. She does feel mildly anxious currently. She has been able to exercise without restriction, last exercise was 3 days ago. She lives at home with her . She is a non-smoker nondrinker. 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 She did travel to [place] in early February and stayed in hotel. Family members went along as well and has no current sick contacts. She also admits to being very sick in January for approximately 4 weeks with upper respiratory symptoms, cough and her asthma. She states she was not treated with antibiotics and symptoms improved on their own. Admission Exam Per Admitting Provider Physical Exam: Constitutional: WD/WN, female, appears anxious, vitals as above, NAD, sitting up in bed, pleasant, conversing easily Head: Normocephalic, Atraumatic Eyes: PERRL, conjunctivae normal, anicteric sclerae ENMT: external ear and nose normal, oropharynx normal Neck: trachea midline, no thyromegaly normal visual inspection Respiratory: normal respiratory effort, lungs clear to auscultation with decre ased breath sounds bilateral bases, no wheeze, rales, rhonchi. Normal insp/exp effort, no accessory muscle use Cardiovascular: Tachycardic rate, regular rhythm, soft 1/6 JOSEY best noted RUSB, no edema Vessels: no JVD or carotid bruit Chest: normal inspection of chest Abdomen: normal bowel sounds, soft, nontender, no hepatosplenomegaly Musculoskeletal: no cyanosis or clubbing, extremities motor strength 5/5 Skin: no rashes, warm and dry normal turgor Neurologic: PERRL, EOMI, accommodation nl, no face palsy, no dysarthria CN's II-XI intact bilaterally and moves all extremities Psychiatric: A+Ox3, euthymic affect Lymphatic: no cervical or axillary lymphadenopathy : deferred Principal Diagnosis Pneumonia involving right lung, asthma, chest pain ACS has been ruled out-, abnormal liver function test Discharge Exam Constitutional no acute distress and not ill appearing Eyes PERRL, conjunctivae normal, anicteric sclerae ENMT external ear and nose normal, oropharynx normal Neck trachea midline, no thyromegaly Respiratory normal respiratory effort; no respiratory distress Auscultation: + diminished lung sounds (Right side with occasional crackles) Cardiovascular Rate/Rhythm: regular rate and regular rhythm Heart Sounds: no murmur Gastrointestinal (Abdomen) Inspection/Auscultation: abdomen normal to inspection and normal bowel sounds; abdomen not distended Percussion/Palpation: abdomen soft Neurologic moves all extremities; no focal motor deficits Discharge Data Allergies Allergy/AdvReac Type Severity Reaction Status Date / Time No Known Allergies Allergy Verified 04/23/19 20:27 Consultations 04/23/19 19:43 ED Decision to Admit Stat 04/23/19 23:05 Consult Cardiology Routine Ordered Studies 04/23/19 18:39 CT angio chest PE protocol Stat 04/23/19 21:51 US gallbladder Stat Hospital Course (1) Pneumonia involving right lung: This is a 64-year-old female who has significant past medical history of CAD, HTN, HLD, depression and anxiety, CKD stage III who presents to [facility] ED secondary to cough and shortness of breath x3 days. CXR and CT Chest concerning for R upper/mid PNA CT of the chest is confirmatory Ddx: Viral PNA, atypical pna, bacterial PNA, legionella, Has been on doxycycline Much better as of this morning Except cough she denies any other symptoms Will be discharged home this afternoon (2) Abnormal EKG: noted on admission initial troponin negative recommend cycle trop x 3 repeat ecg-remains unremarkable echocardiogram-no regional wall motion abnormalities, EF 60 to 65%, diastolic dysfunction grade 2, mild tricuspid regurgitation and no pulmonary hypertension Appreciate cardiology input and recommendation Symptoms are not likely due to cardiac causes Will have outpatient stress test as per cardiology (3) Elevated LFTs: AST 389, ALT 272, alk phos 156, total bilirubin WNL Labs reviewed from 09/2018 revealed unremarkable LFTs Patient asymptomatic without any GI symptoms Would recommend obtaining right upper quadrant ultrasound, holding statin and hepatitis panel The son of the gallbladder did not show any gallstones Hepatitis panel and antimitochondrial antibody have been ordered Legionella antigen and mycoplasma antibody have been ordered to Hepatitis a IgM is pending, hepatitis B core IgM antibodies pending, mycoplasma pneumonia pending and antimitochondrial antibody is pending Liver functions continue to improve Will discharge home this afternoon and have a repeat liver panel in 1 week (4) Coronary artery disease: Currently no chest pain or shortness of breath Patient does have EKG changes with T wave inversions inferiorly On aspirin, Crestor, metoprolol, lisinopril, Imdur as outpatient Initial troponin negative Recommend cycle troponin x3 Repeat EKG Recommend obtain echocardiogram in a.m. Appreciate cardiology input Continue aspirin, beta-kobi, isosorbide mononitrate and SIENNA inhibitor (5) Hypertension: blood pressure improved on my exam 120/80s continue metoprolol, lisinopril, Imdur Monitor (6) Dyslipidemia: on crestor elevated LFTS, ? if in setting of crestor plan per Dr. Vogt (7) Asthma: no acute exac despite PNA dx continue asthmanex, prn albuterol Will need nebulized bronchodilator at home as needed (8) Acute stress reaction: Father 2 weeks ago increased depression/anx because of this monitor closely (9) Depression with anxiety: continue lamictal, buspar, clonazepam increased anx with recent passing of father (10) GERD (gastroesophageal reflux disease): continue PPI (11) DVT prophylaxis: Follow up: PCP Dr. Monroy upon discharge Discharge home this afternoon Total Time Total Time Spent Total Time Spent (In Minutes): 35 minutes Total Time Includes: Examination of the Patient, Discharge Planning, Medication Reconciliation and Communication With Other Providers Discharge Plan Discharge Items Patient Disposition: Home - Self-Care Reason For Visit: HTN URGENCY,CHEST PAIN,PNX Discharge Diagnosis: Pneumonia involving right lung, asthma, chest pain ACS has been ruled out-, abnormal liver function test Condition on Discharge: Good Activity: Resume your previous activity Non-emergency contact: Primary Care Provider Call non-emergency contact if: you have any medication questions and your symptoms worsen Follow-up/Referrals: Van Monroy MD [Primary Care Provider] - 04/29/19 1:05 pm (Your water pollution control inspector office will call with an appointment) Diet: Heart Healthy Addtl Attending Provider Instructions: Nebulizer machine has been prescribed and will be delivered at home Continue nebulized albuterol as prescribed Have been repeat liver function test done during your appointment with PCP 0n of this month Your fluconazole has been stopped as it can cause abnormal liver function test Pending Studies at Discharge: Yes Studies:: Legionella and mycoplasma titers, anti-mitochondrial antibody titer, hepatitis B core immunoglobinMantibody, hepatitis A immunoglobin M Stand-Alone Forms: My [facility] CheckiO, Smoking Cessation Medications and DC Order Prescriptions: New doxycycline hyclate 100 mg Capsule 100 mg PO BID 7 Days Qty: 14 RF: 0 levalbuterol HCl 1.25 mg/0.5 mL Solution For Nebulization 1.25 mg inhalation Q4H PRN (Reason: shortness of breath or wheezing) 30 Days Qty: 50 RF: 0 guaifenesin [Mucinex] 600 mg Tablet Extended Release 12hr 600 mg PO Q12 10 Days Qty: 20 RF: 0 Continued lamotrigine 200 mg tablet 200 mg PO QAM RF: 0 pantoprazole 20 mg tablet,delayed release (DR/EC) 20 mg PO BID RF: 0 buspirone 15 mg tablet 7.5 mg PO AMHS RF: 0 rosuvastatin 40 mg tablet 40 mg PO HS RF: 0 Asmanex Twisthaler 220 mcg/ actuation (30) aerosol powdr breath activated 1 inh inhalation DAILY RF: 0 clobetasol 0.05 % Cream 1 applic TOPICAL BID PRN (Reason: Yeast Infection) RF: 0 lutein 10 mg Tablet 10 mg PO DAILY RF: 0 One-A-Day Womens Formula 18 mg iron-400 mcg-500 mg Tablet 1 tab PO DAILY RF: 0 aspirin [Aspirin Low Dose] 81 mg Tablet,Delayed Release (Dr/Ec) 81 mg PO QAM RF: 0 ProAir RespiClick 90 mcg/actuation Aerosol Powdr Breath Activated 2 inh INHALATION QID PRN (Reason: Shortness Of Breath Or Wheezing) RF: 0 clonazepam 0.5 mg Tablet 0.25 mg PO QPM RF: 0 estradiol [Vagifem] 10 mcg Tablet 10 mcg VAGINAL 2XWK RF: 0 isosorbide mononitrate 30 mg Tablet Extended Release 24 Hr 30 mg PO QAM RF: 0 omega [id number] oil [Fish Oil] 1,000 mg (120 mg-180 mg) Capsule 1 cap PO DAILY RF: 0 lamotrigine 150 mg Tablet 150 mg PO QPM RF: 0 metoprolol succinate 50 mg Tablet Extended Release 24 Hr 50 mg PO QAM RF: 0 lisinopril 2.5 mg Tablet 2.5 mg PO QAM RF: 0 nitroglycerin 0.4 mg Tablet, Sublingual 0.4 mg sublingual DIRECTED PRN (Reason: Chest Pain) RF: 0 Discontinued fluconazole 200 mg Tablet 200 mg PO Q2D RF: 0 Discharge Orders: Discharge Order (Routine); Ordered 04/25/19 Ordered By: Laurie Alvarez Admission Data Admit Date/Time: 04/23/19 22:52 Attending Provider: Laurie Alvarez Admit Provider: Donald Vogt Primary Care Provider: Van Monroy Other Providers: Donald Vogt ; Jaswinder Carolina Other Interventions: Discharge Summary Assessment (RN) Last Done: 04/25/19 13:55 DC Date/Time DO NOT enter until pt leaves facility: 04/25/19 14:14
[2019-04-27 11:02] LABS: Hepatitis A Antibody IgM NON-REACTIVE (NON-REACTIVE); Hepatitis B Core Antibody IgM NON-REACTIVE (NON-REACTIVE); Mycoplasma pneumoniae Ab, IgG <=0.90 (<=0.90); Mycoplasma pneumoniae Ab, IgM 38 U/mL (<770)
== END 2019-04-25 14:14 | disposition home or self-care (01) | DRG 195 ==
LOC: ED 17:37 → 2S 17:37

== ENCOUNTER 2019-05-21 08:06 | Observation (INO) ==
[2019-05-21] MEDS ORDERED: fentaNYL citrate 100 MCG/2 ML VIAL ONE (08:24)
[2019-05-21] MEDS ORDERED: HEPARIN (PORCINE) 1000 UNIT/ML 10 ML (CATH LAB USE ONLY) ONE (08:24)
[2019-05-21] MEDS ORDERED: NiCARDipine HCL INJ 2.5 MG/ML 10 ML AMP ONE (08:24)
[2019-05-21] MEDS ORDERED: MIDAZOLAM HCL 1 MG/ML 2ML VIAL ONE ×2 (08:24→09:51)
[2019-05-21] MEDS ORDERED: NITROGLYCERIN/D5W 100MCG/ML 20ML SYR ONE (08:25)
--- NOTE | 2019-05-21 08:45 | History & Physical Bridge Note ---
Date of Service May 21, 2019 History & Physical Bridge Note I have examined the patient, reviewed the History & Physical and in the interval since the performance of the History & Physical I have noted the following changes of clinical significance: no changes noted
--- NOTE | 2019-05-21 08:46 | Pre Anesthesia Assessment ---
Date of Service May 21, 2019 Pre Sedation Assessment Vital Signs Temp Pulse Pulse Resp BP Pulse Ox 05/22/19 07:33 37.2 C 73 18 117/71 96 05/22/19 03:48 36.9 C 69 16 120/74 98 05/22/19 00:17 36.6 C 86 16 114/72 95 05/21/19 18:53 36.7 C 67 19 111/65 97 05/21/19 16:59 37.1 C 83 16 117/74 96 05/21/19 16:00 69 79 20 118/71 96 05/21/19 14:56 73 20 99/62 L 97 05/21/19 14:01 68 18 99/56 L 96 05/21/19 13:11 73 18 102/65 97 05/21/19 12:45 73 18 99/62 L 05/21/19 12:15 62 16 129/72 05/21/19 12:00 67 18 129/77 98 05/21/19 11:45 67 16 128/73 98 05/21/19 11:30 36.6 C 71 18 153/77 H 98 05/21/19 11:15 66 20 142/81 H 97 05/21/19 11:10 66 20 152/80 H 97 05/21/19 11:05 66 20 150/78 H 97 05/21/19 11:00 71 20 167/93 H 97 Cardiovascular RRR, no murmur, no edema Respiratory normal respiratory effort, lungs clear to auscultation Pre-Sedation Airway Assessment Smoking Status: Never smoker Hx Sleep Apnea: No Short, Thick Neck: No Thyromental Distance: > or= 3.5 Finger Breadths Oral Cavity: + WNL Mallampati Class: I ASA: ASA3 NPO Status Date of Last Intake of Fluids: 05/20/19 Time of Last Intake of Fluids: 20:00 Date of Last Intake of Solid Food: 05/20/19 Time of Last Intake of Solid Foods: 20:00 Procedure Planning Contraindications for Sedation: none Current Medications Reviewed: Yes Notes The planned sedation has been discussed with the patient. Informed Consent was obtained. I have identified the patient, determined the appropriateness of sedation and have assessed the patient immediately prior to the procedure. All medicine(s) and interventions are by my order.
--- NOTE | 2019-05-21 09:37 | Post Anesthesia Assessment ---
Date of Service May 21, 2019 Post Sedation Assessment Vital Signs Temp Pulse Pulse Resp BP Pulse Ox 05/22/19 07:33 37.2 C 73 18 117/71 96 05/22/19 03:48 36.9 C 69 16 120/74 98 05/22/19 00:17 36.6 C 86 16 114/72 95 05/21/19 18:53 36.7 C 67 19 111/65 97 05/21/19 16:59 37.1 C 83 16 117/74 96 05/21/19 16:00 69 79 20 118/71 96 05/21/19 14:56 73 20 99/62 L 97 05/21/19 14:01 68 18 99/56 L 96 05/21/19 13:11 73 18 102/65 97 05/21/19 12:45 73 18 99/62 L 05/21/19 12:15 62 16 129/72 05/21/19 12:00 67 18 129/77 98 05/21/19 11:45 67 16 128/73 98 05/21/19 11:30 36.6 C 71 18 153/77 H 98 05/21/19 11:15 66 20 142/81 H 97 05/21/19 11:10 66 20 152/80 H 97 05/21/19 11:05 66 20 150/78 H 97 05/21/19 11:00 71 20 167/93 H 97 Recovery Score Activity: Moves 4 extremities Respiration: Deep Breath/Cough Circulation: +/-20% PreAnes Value Consciousness: Arouseable (by name) Oxygen Saturation: > 92% On Room Air Discharge Sedation Level of Care: Phase I Post Sedation Plan On clinical assessment, the patient appears to have tolerated the sedation without complications. Patient is recovering as anticipated. Patient will continue to be monitored by nursing and may be discharged when sedation discharge criteria are met per below protocol. Upon Completions of procedure up to 15 minutes continue every 5 minute vital signs and the P.A.R. score; then discharge to a Phase I or Fast Track to Phase II per the following guidelines: * Discharge Patient to appropriate Phase II area if PAR is 8 or greater or return to pre- procedure baseline. The post - procedure orders will be as directed. * If PAR score is less than 8 or not return to pre-procedure baseline then patient will follow Phase I monitoring till PAR is reached for Phase II. The Phase I may be done in procedure room or may call to secure a Phase I area. * If naloxone or flumazenil are used for reversal, hold in Phase I for continued monitoring from when last reversal dose was given for a minimum of 60 minutes or longer pending the nurse and/or physician discretion of patient condition before discharge to Phase II. Please call the Sedation Physician to re-evaluate and complete post-note for discharge to Phase II area. Do NOT discharge from procedure sedation or Phase 1 until post- sedation eval uation note is complete by procedure /sedation MD Sedation Discharge Instructions to be given to the patient at discharge to home.
--- NOTE | 2019-05-21 09:45 | Cardiac Catheterization ---
Cardiac Cath Procedure Full Procedure Date May 21, 2019 Pre-Procedure Diagnosis Pre-Procedure Diagnosis: Angina and CAD AUC Score AUC Score: 8 Post-Procedure Diagnosis Post-Procedure Diagnosis: Severe CAD Procedure(s) Performed Procedure(s) Performed: Coronary Angiography and Left Heart Cath Hook Up Jaswinder Carolina DO Staffing Analyst(s) Kaden GAS APPLIANCE SERVICER Estimated Blood Loss Estimated Blood Loss: 5cc Medication(s) Medication(s): Fentanyl, Heparin, Lidocaine 1%, Nicardipine, Nitroglycerin and Versed Summary of Findings 75% proximal LAD 80% mid RCA Hemodynamics Rest Ao:: 134/73/100 Final Ao: 143/66/101 LV: 147/07/05 Recommendations Recommendations: PCI without planned CABG Radiation Exposure (mGy) 282 Contrast (mls) 45 Fluids (cc crystalloids) Fluids (cc crystalloids): 48 Nss Anesthesia Moderate Sedation. Start 0906. End 0943. Sedation Monitor: Rashel COLLINS Procedural Complication(s) None Disposition Patient remained in [facility] for PCI. I attest to the content of the Intraoperative Record and any orders documented therein. Any exceptions are noted below. ACC Data: [facility] Cardiac Status Clinical evaluation leading to the procedure CAD Presenation: Unstable angina Anginal Classification: CCS III Heart Failure: No Coronary Anatomy Dominant: Co-Dominant Left Main (% Stenosis): Normal LAD (% Stenosis): Proximal (75%), Mid (30%) and Distal (60%) D1 (% Stenosis): Ostial (90%, the remaind of vessel demonstrates severe diffuse disease, 80%) D2 (% Stenosis): Normal Circumflex (% Stenosis): Mid (10) OM1 (% Stenosis): Proximal (large trifurcating vessel. 20%), Mid (20% at origin of trifurcation. ) and Distal (10%) L PDA (% Stenosis): Mid (1mm vessel without significant disease.) RCA (% Stenosis): Proximal (40%) and Mid (80% followes by diffuse 40-50% in the mid to distal vessel) R PDA (% Stenosis): Mid (small vessel with mild diffuse luminal irregularities, 20-30%) Diagnostic Physicians Name: Jaswinder Carolina DO Status: Elective Closure Device Percutaneous Entry Location: Radial Closure Device: Radial Band Recommendations: PCI without planned CABG Intraprocedure Events Significant Disection: No Perforation: No
[2019-05-21] MEDS ORDERED: CLOPIDOGREL BISULFATE 300 MG TAB ONE (10:43)
[2019-05-21] MEDS ORDERED: ACETAMINOPHEN 325 MG TAB PO PRN (11:08)
[2019-05-21] MEDS ORDERED: ONDANSETRON INJ 2 MG/ML 2 ML VIAL IV PRN (11:08)
--- NOTE | 2019-05-21 11:08 | Post Anesthesia Assessment ---
Date of Service May 21, 2019 Post Sedation Assessment Vital Signs Temp Pulse Resp BP Pulse Ox 05/21/19 08:22 97.9 F 81 20 148/78 H 97 Recovery Score Activity: Moves 4 extremities Respiration: Deep Breath/Cough Circulation: +/-20% PreAnes Value Consciousness: Fully Awake Oxygen Saturation: O2 needed for >90% Discharge Sedation Level of Care: Fast Track Phase II Post Sedation Plan On clinical assessment, the patient appears to have tolerated the sedation without complications. Patient is recovering as anticipated. Patient will continue to be monitored by nursing and may be discharged when sedation discharge criteria are met per below protocol. Upon Completions of procedure up to 15 minutes continue every 5 minute vital signs and the P.A.R. score; then discharge to a Phase I or Fast Track to Phase II per the following guidelines: * Discharge Patient to appropriate Phase II area if PAR is 8 or greater or return to pre- procedure baseline. The post - procedure orders will be as directed. * If PAR score is less than 8 or not return to pre-procedure baseline then patient will follow Phase I monitoring till PAR is reached for Phase II. The Phase I may be done in procedure room or may call to secure a Phase I area. * If naloxone or flumazenil are used for reversal, hold in Phase I for continued monitoring from when last reversal dose was given for a minimum of 60 minutes or longer pending the nurse and/or physician discretion of patient condition before discharge to Phase II. Please call the Sedation Physician to re-evaluate and complete post-note for discharge to Phase II area. Do NOT discharge from procedure sedation or Phase 1 until post- sedation evaluation note is complete by procedure /sedation MD Sedation Discharge Instructions to be given to the patient at discharge to home.
[2019-05-21] MEDS ORDERED: NITROGLYCERIN SL 0.4 MG/TAB TAB SL PRN (11:11)
[2019-05-21] MEDS ORDERED: SODIUM CHLORIDE 0.9% 1000ML 1,000 ML IV SCH (11:15)
--- NOTE | 2019-05-21 11:22 | Cardiac Catheterization ---
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 Clinical evaluation leading to the procedure CAD Presenation: Positive Stress Test Anginal Classification: CCS III Heart Failure: No Cardiogenic Shock within 24 Hours: No Cardiac Arrest within 24 Hours: No Imaging Studies Past 6 Months: Yes Stress Studies Past 6 Months: Yes Diagnostic Physicians Name: Kavon Escalante MD Status: Elective Closure Device Percutaneous Entry Location: Radial Closure Device: Radial Band Recommendations: PCI without planned CABG PCI Indication: + Stress Test and Stable Angina Lesion Segment Name: proximal-mid LAD Culprit Artery: Yes Stenosis Prior to Rx (%): 80 Chronic Total Occlusion: No IVUS: No FFR: No Pre-Procedure ESPINOZA Flow: 3 Previously Treated Lesion: Yes Lesion Complexity: High/C Lesion Length (mm): 35 Thrombus Present: No Bifurcation Lesion: No Guidewire Across Lesion: No Lesion #2 Segment Name: mid RCA Culprit Artery: No Stenosis Prior to Rx (%): 80 Chronic Total Occlusion: No IVUS: No FFR: No Pre-Procedure ESPINOZA Flow: 3 Previously Treated Lesion: No Lesion Complexity: Non-High/Non-C Lesion Length (mm): 12 Thrombus Present: No Bifurcation Lesion: No Guidewire Across Lesion: Yes Stenosis Post-Procedure (%): 0 Post-Procedure ESPINOZA Flow: 3 Devices(s) Deployed: Yes Intraprocedure Events Significant Disection: No Perforation: No Cardiac Cath Procedure Full Procedure Date May 21, 2019 Pre-Procedure Diagnosis Pre-Procedure Diagnosis: Angina and CAD AUC Score AUC Score: 7 Post-Procedure Diagnosis Post-Procedure Diagnosis: Severe CAD and Successful PCI Procedure(s) Performed Procedure(s) Performed: Drug Eluting Stent and IVUS Clinical Faculty Kavon Escalante MD Nail Tech(s) Alfonso SOFTWARE TEST AUTOMATION ENGINEER Estimated Blood Loss Estimated Blood Loss: 15 Medication(s) Medication(s): Clopidogrel, Fentanyl, Heparin, Lidocaine 1%, Nicardipine, Nitroglycerin and Versed Summary of Findings Indication: Angina, abnormal stress test Access: 6Fr slender right radial artery Catheters: EBU 3.5 guide, 5Fr JR4 guide Findings: For full details of patient's coronary angiography please cath report dictated by Dr. Carolina. Briefly, patient found to have severe multi-vessel disease including a 75% diffuse proximal LAD stenosis and 80% mid RCA stenosis. Decision to proceed with multivessel PCI. -- PCI -- Antithrombotic therapy: Procedure: LM cannulated with EBU 3.5 guide BMW wire passed across lesion into distal vessel Proximal to mid LAD lesion predilated with 2.5 and 3.0 compliant balloons IVUS attempted but unable to pass catheter Dilated lesion stented with 3.0 x 38 mm Melvin LIYA Stent post-dilated with 3.5 noncompliant balloon to high atmospheres IC vasodilators administered for spasm Repeat IVUS showed well-expanded stent with no apparent edge complications. Post procedure ESPINOZA 3 flow, stent well expanded with minimal residual stenosis and no apparent cardiac complications. Arterial Closure: TR Band Summary: 1. Successful PCI of proximal to mid LAD with single drug-eluting stent (3.0 x 38 mm Chapin; post-dilated with 3.5 NC). 2. Successful PCI of mid RCA with single drug-eluting stent (2.25 x 15 mm Chapin). Recommendations: To PCU for continued monitoring Loaded with clopidogrel 600mg in caht lab Continue dual-antiplatelet therapy for at least 6 months. Continue statin, and ASCVD risk factor modification Consult cardiac Rehab Hemodynamics Rest Ao:: 148/70/102 Final Ao: 135/72/101 LV: -- Recommendations Recommendations: PCI without planned CABG Specimens Specimens: None Radiation Exposure (mGy) 891 Contrast (mls) 150 Fluids (cc crystalloids) Fluids (cc crystalloids): 189 Drains Drains: none Anesthesia Moderate Sedation. . Sedation Monitor: Rashel COLLINS Procedural Complication(s) None Disposition PCU I attest to the content of the Intraoperative Record and any orders documented therein. Any exceptions are noted below. [facility] Card Cath Procedure Codes Therapeutic Services & Ancillary Proc Procedure 1: Cardiovascular Tx and Anc Procedures: 69269 IV Ultrasound (Coronary or Gr aft) Moderate Sedation Procedure 1: Sedation/Anesthesia: 55387 Mod Sedation by the same physician;Init15 Min Child Age 5 & Up Procedure 2: Sedation/Anesthesia: 09154 Mod Sedation by the same physician; Ea [id number] Minutes Stenting Procedure 1: Cardiovascular Stent Procedures: 15911 Perc transcatheter placement of intracoronary stent(s), with ang Procedure 2: Cardiovascular Stent Procedures: 34490 Ea addl branch of a major coronary artery PG Care Time/CCT Total # of Minutes Spent Total Time Spent with Patient: Total time spent is greater than 50% in coordination of care (as documented) at patient's floor/unit and/or counseling patient:
[2019-05-21] MEDS ORDERED: ALBUTEROL HFA 8 GM INHALER INH PRN (12:06)
[2019-05-21] MEDS: BUSPIRONE HCL 7.5 MG TAB PO SCH (19:52)
[2019-05-21] MEDS ORDERED: clonazePAM 0.5 MG TAB PO SCH (21:00)
[2019-05-21] MEDS ORDERED: ROSUVASTATIN CALCIUM 20 MG TAB PO SCH (21:00)
[2019-05-21] MEDS ORDERED: lamoTRIgine 100 MG TAB PO SCH (21:00)
[2019-05-22 07:38] LABS: Basophils # (auto) 0.02 K/uL (0-0.2); Basophils % (auto) 0.3 %; Eosinophils # (auto) 0.14 K/uL (0-0.5); Eosinophils % (auto) 2.2 %; Hematocrit (blood only) 35.6 % (37-47); Immature Granulocytes # (auto) 0.01 K/uL (0.00-0.02); Immature Granulocytes % (auto) 0.2 %; Lymphocytes # (auto) 1.95 K/uL (1.2-3.4); Lymphocytes % (auto) 30.5 %; Mean Corpuscular Hemoglobin 31.5 pg (25-34); Mean Corpuscular Hgb Conc 33.7 g/dL (32-36); Mean Corpuscular Volume 93.4 fL (80-100); Mean Platelet Volume 9.6 fL (7.4-10.4); Monocytes # (auto) 0.52 K/uL (0.11-0.59); Monocytes % (auto) 8.1 %; Neutrophils # (auto) 3.76 K/uL (1.4-6.5); Neutrophils % (auto) 58.7 %; Platelet Count 156 K/uL (130-400); RDW Coefficient of Variation 13.4 % (11.5-14.5); RDW Standard Deviation 45.7 fL (36.4-46.3); Red Blood Count 3.81 M/uL (4.2-5.4)
[2019-05-22] MEDS: BUSPIRONE HCL 7.5 MG TAB PO SCH (07:44)
[2019-05-22 08:08] LABS: Creatinine Clr Calc Pharmacy 47.1 ml/min; Est GFR (African American) 73.8; Est GFR (Non-African American) 63.7
--- NOTE | 2019-05-22 08:27 | Cardiology Progress Note ---
Date of Service May 22, 2019 Assessment & Plan (1) Unstable angina: (2) Presence of stent in LAD coronary artery: (3) S/P right coronary artery (RCA) stent placement: (4) Dyslipidemia, goal LDL below 70: Discussed importance of continuing dual antiplatelet therapy uninterrupted for m inimum of 6 months post drug-eluting stent implantation. Post cardiac catheterization activity restrictions reviewed. Continue other cardiovascular medications as ordered prior to hospitalization. Appropriate use of sublingual nitroglycerin reviewed. I will see the patient for routine cardiology outpatient follow-up in 4 to 6 weeks. Subjective Patient seen and examined the bedside. Denies chest pain or unusual shortness of breath. Reports a few episodes of short-lived chest tightness post procedure. No dysrhythmias on telemetry. No wrist hematoma. Denies palpitations, lightheadedness, dizziness, syncope, or near syncope. is present at bedside. He offers no additional concerns/complaints this time. Review of Systems Review of Systems: All systems reviewed & are unremarkable except as noted in HPI & below Physical Exam Physical Exam: General: NAD, AAO x3, well nourished. HEENT: Normocephalic. Atraumatic. Conjunctiva pink, no scleral icterus. Neck: No carotid bruits, the carotid upstrokes are brisk. No JVD. No HJR Heart: Regular normal S-1 and S-2 no S-3 or S-4 gallop. No murmurs or rub appreciated. PMI is not displaced. No RV heave. Lungs: Clear bilateral without rales , rhonchi, or wheeze. Abdomen: Normal bowel sounds. Soft. Nontender. No masses or organomegaly. No abdominal bruits. Extremities: Mild ecchymosis of the right anterior wrist. No clubbing, cyanosis, or edema. Pulses: radial=2/4, Dorsalis pedis =2/4, posterior tibial=2/4. Neuro: Cranial nerves grossly intact. No focal motor deficit. Results & Data Vital Signs (Past 12 Hours) Vital Signs Temp Pulse Resp BP Pulse Ox 05/22/19 07:33 37.2 C 73 18 117/71 96 05/22/19 03:48 36.9 C 69 16 120/74 98 05/22/19 00:17 36.6 C 86 16 114/72 95
--- NOTE | 2019-05-22 08:35 | Discharge Summary ---
Date of Service May 22, 2019 Admission HPI Per Admitting Provider Patient presents for elective cardiac catheterization due to unstable angina. Admitted approximately 1 month ago with community-acquired pneumonia. Significant ischemic ECG changes noted during hospitalization. No significant troponin elevation. Patient reports progressive angina over the past 6 months. Functional capacity has declined. Carries history of chronic occlusion of diagonal branch vessel as well as moderate LAD and RCA stenosis per catheterization 2012. Admission Exam Per Admitting Provider General: NAD, AAO x3, well nourished. HEENT: Normocephalic. Atraumatic. Conjunctiva pink, no scleral icterus. Neck: No carotid bruits, the carotid upstrokes are brisk. No JVD. No HJR Heart: Regular normal S-1 and S-2 no S-3 or S-4 gallop. No murmurs or rub appreciated. PMI is not displaced. No RV heave. Lungs: Clear bilateral without rales , rhonchi, or wheeze. Abdomen: Normal bowel sounds. Soft. Nontender. No masses or organomegaly. No abdominal bruits. Extremities: No clubbing, cyanosis, or edema. Pulses: radial=2/4, Dorsalis pedis =2/4, posterior tibial=2/4. Neuro: Cranial nerves grossly intact. No focal motor deficit. Principal Diagnosis Unstable angina status post Drug eluting stent implantation to LAD and RCA Discharge Data Allergies Allergy/AdvReac Type Severity Reaction Status Date / Time No Known Allergies Allergy Verified 04/23/19 20:27 Consultations 05/21/19 11:10 Consult Cardiac Rehabilitation Routine Procedures Performed Operation Date: 05/21/19 09:00 Actual Procedures s Cineradiography w/Routine Exam - Jaswinder Carolina DO p Cath, Left with Cors and Vent - Jaswinder Carolina DO s Drug Eluting Stent each ADDTL Vessel - Daryl Escalante MD s Drug Eluting Stent SGl Vessel - Daryl Escalante MD s IVUS Coronary Single Vessel - Daryl Escalante MD Ordered Studies 05/21/19 06:31 CL Cath Imgs for PACS use only Routine 05/21/19 11:50 CL IVUS Coronary Single Vessel Routine Hospital Course (1) Unstable angina: (2) Presence of stent in LAD coronary artery: (3) S/P right coronary artery (RCA) stent placement: (4) Dyslipidemia, goal LDL below 70: Patient admitted after diagnostic cardiac catheterization revealed severe two- vessel CAD. Drug-eluting stent implanted to the RCA and LAD without complication 05/21/2019. Discussed importance of continuing dual antiplatelet therapy uninterrupted for minimum of 6 months post drug-eluting stent implantation. Post cardiac catheterization activity restrictions reviewed. Continue other cardiovascular medications as ordered prior to hospitalization. Appropriate use of sublingual nitroglycerin reviewed. I will see the patient for routine cardiology outpatient follow-up in 4 to 6 weeks. Total Time Total Time Spent Total Time Spent (In Minutes): 30 Total Time Includes: Examination of the Patient, Discharge Planning and Medication Reconciliation Discharge Plan Discharge Items Patient Disposition: Home - Self-Care Reason For Visit: POST PCI Discharge Diagnosis: Unstable angina status post drug-eluting stent implantation to the LAD and RCA. Condition on Discharge: Good Activity: Per Instructions section Non-emergency contact: Warehouse Packer Call non-emergency contact if: you have any medication questions, your pain is not controlled and your pain is unusual for you Follow-up/Referrals: Van Monroy MD [Primary Care Provider] - Jaswinder Carolina DO [Warehouse Packer] - Diet: Heart Healthy [facility] Attending Provider Instructions: ACTIVITY RECOMMENDATIONS: It is common to feel weak and fatigue for a few days. * Do not drive or operate any motorized equipment for the next three days. * Limit stair usage (2 or 3 trips a day only) for the next three days. * Do not lift anything heavier than 10 pounds for the next three days. * Do not engage in vigorous exercise or any sports for the next five days. * You may shower the day after your procedure, but do not immerse the area for three days. Cleanse the site gently with soap and water. SPECIAL CARE INSTRUCTIONS: * You may replace the pressure dressing or band-aid the morning after the procedure. * After your procedure, it is normal to have a small bruise or small lump at the site. Examine your site daily for any change in the bruise or lump, redness, swelling, drainage or numbness. Notify your doctor if any change. BLEEDING: * If there is a small amount of bleeding at the site, lie down and apply firm pressure with a clean cloth for ten minutes. When the bleeding stops, lie quietly keeping the procedure limb straight for six hours. Notify your doctor as soon as possible. * If the bleeding does not stop after ten minutes or if there is a large amount of bleeding or spurting, call 911 immediately. Continue to lie down and hold firm pressure until help arrives. SKIN IRRITATION: * You may experience some redness and/or swelling in the area where radiation was administered. If any skin irritation occurs, please contact your family physician. FOLLOW UP VISIT: Keep any scheduled doctor appointments. Pending Studies at Discharge: No Stand-Alone Forms: My [facility] [employer], Smoking Cessation, Work/School Release (Inpt) Medications and DC Order Prescriptions: New clopidogrel 75 mg Tablet 75 mg PO QAM 30 Days Qty: 30 RF: 0 Continued lamotrigine 200 mg tablet 200 mg PO QAM RF: 0 pantoprazole 20 mg tablet,delayed release (DR/EC) 20 mg PO BID RF: 0 buspirone 15 mg tablet 7.5 mg PO AMHS RF: 0 rosuvastatin 40 mg tablet 40 mg PO HS RF: 0 Asmanex Twisthaler 220 mcg/ actuation (30) aerosol powdr breath activated 1 inh inhalation DAILY RF: 0 lutein 10 mg Tablet 10 mg PO DAILY RF: 0 One-A-Day Womens Formula 18 mg iron-400 mcg-500 mg Tablet 1 tab PO DAILY RF: 0 aspirin [Aspirin Low Dose] 81 mg Tablet,Delayed Release (Dr/Ec) 81 mg PO QAM RF: 0 ProAir RespiClick 90 mcg/actuation Aerosol Powdr Breath Activated 2 inh INHALATION QID PRN (Reason: Shortness Of Breath Or Wheezing) RF: 0 clonazepam 0.5 mg Tablet 0.25 mg PO QPM RF: 0 estradiol [Vagifem] 10 mcg Tablet 10 mcg VAGINAL 2XWK RF: 0 isosorbide mononitrate 30 mg Tablet Extended Release 24 Hr 30 mg PO QAM RF: 0 lamotrigine 150 mg Tablet 150 mg PO QPM RF: 0 metoprolol succinate 50 mg Tablet Extended Release 24 Hr 50 mg PO QAM RF: 0 lisinopril 2.5 mg Tablet 2.5 mg PO QAM RF: 0 nitroglycerin 0.4 mg Tablet, Sublingual 0.4 mg sublingual DIRECTED PRN (Reason: Chest Pain) RF: 0 Discharge Orders: Discharge Order (Routine); Ordered 05/22/19 Ordered By: Jaswinder Carolina Admission Data Admit Date/Time: 05/21/19 11:22 Attending Provider: Mohamud Tate Admit Provider: Daryl Escalante Primary Care Provider: Van Monroy
[2019-05-22] MEDS ORDERED: lamoTRIgine 100 MG TAB PO SCH (09:00)
[2019-05-22] MEDS ORDERED: ASPIRIN 81 MG ECTAB PO SCH (09:00)
[2019-05-22] MEDS ORDERED: MOMETASONE FUROATE 14 PUFF/1 INHALER INH SCH (09:00)
[2019-05-22] MEDS ORDERED: METOPROLOL SUCC 50MG EXT REL TAB PO SCH (09:00)
[2019-05-22] MEDS ORDERED: ISOSORBIDE MONO EXTENDED REL 30 MG TABCR PO SCH (09:00)
[2019-05-22] MEDS ORDERED: PANTOprazole 40 MG TAB PO SCH (09:00)
[2019-05-22] MEDS ORDERED: CLOPIDOGREL BISULFATE 75 MG TAB PO SCH (09:00)
[2019-05-22] MEDS ORDERED: ENOXAPARIN INJ 40 MG/0.4 ML SYR SQ SCH (11:00)
== END 2019-05-22 09:51 | disposition home or self-care (01) ==
LOC: CC 08:06 → 2S 08:06

== ENCOUNTER 2021-01-03 15:12 | Inpatient (IN) ==
[2021-01-03] MEDS ORDERED: ACETAMINOPHEN 1,000 MG/100 ML VIAL IV STA (16:16)
[2021-01-03] MEDS ORDERED: METOCLOPRAMIDE HCL INJ 5 MG/ML 2 ML VIAL IV STA (16:16)
[2021-01-03] MEDS ORDERED: SODIUM CHLORIDE 0.9% 1000ML 1,000 ML IV ONE (16:16)
[2021-01-03] MEDS ORDERED: MAGNESIUM CITRATE 296 ML/BTL PO STA (16:18)
[2021-01-03] MEDS: HYDROmorphone INJ 0.5 MG/0.5 ML SYR IV PRN ×3 (16:25→19:55)
[2021-01-03 16:30] LABS: Basophils # (auto) 0.01 K/uL (0-0.2); Basophils % (auto) 0.1 %; Hematocrit (blood only) 40.8 % (37-47); Hemoglobin 14.3 g/dL (12.0-16.0); Immature Granulocytes # (auto) 0.06 K/uL (0.00-0.02); Immature Granulocytes % (auto) 0.4 %; Lymphocytes # (auto) 0.62 K/uL (1.2-3.4); Lymphocytes % (auto) 3.7 %; Mean Corpuscular Hemoglobin 31.2 pg (25-34); Mean Corpuscular Volume 88.9 fL (80-100); Mean Platelet Volume 9.4 fL (7.4-10.4); Monocytes # (auto) 1.05 K/uL (0.11-0.59); Monocytes % (auto) 6.3 %; Neutrophils # (auto) 14.84 K/uL (1.4-6.5); Neutrophils % (auto) 89.5 %; Platelet Count 243 K/uL (130-400); RDW Coefficient of Variation 12.5 % (11.5-14.5); Red Blood Count 4.59 M/uL (4.2-5.4); White Blood Count 16.58 K/uL (4.8-10.8)
[2021-01-03 16:46] LABS: Albumin Level 3.8 gm/dl (3.4-5.0); BUN Creatinine Ratio 16.8 (10-20); Calcium 9.8 mg/dl (8.5-10.1); Creatinine Clr Calc Pharmacy 41.5 ml/min; Est GFR (African American) 66.4 ml/min; Est GFR (Non-African American) 57.3 ml/min; Potassium 4.6 mmol/L (3.5-5.1)
[2021-01-03 16:49] LABS: Albumin Globulin Ratio 1.1 (0.9-2); Globulin 3.6 gm/dl (2.5-4.0); Total Protein 7.4 gm/dl (6.4-8.2)
--- NOTE | 2021-01-03 17:18 | Emergency Department Note ---
Impression & Plan Abdominal pain, Acute appendicitis ED Provider Note NAME: MENA BOYER AGE: 65 SEX: F : 1955 ARRIVES VIA: Walk-In INFORMANT: Patient, ED PROVIDER(S): Felix Nickerson MD CHIEF COMPLAINT: Abd pain HPI: This is a 65-year-old female who presents to the emergency department with her . The patient's reports that the patient has been having abdominal pain since Saturday. The patient herself reports that she is been unable to have any bowel movements. The patient's reports that they were sent in by the [facility] PCP for an enema. The patient herself reports she has been unable to keep any medicines down including Pepto-Bismol as well as Pepcid. She is describing abdominal pain with no radiation. She denies any fevers or chills she reports nothing appears to make the pain any better or worse. Patient's reports that the patient does have a history of hernia repair however the patient reports that she still has her appendix and her gallbladder. ROS: See above HPI for pertinent positives & negatives. A total of 10 systems reviewed and were otherwise negative. PAST MEDICAL HISTORY: See Below PAST SURGICAL HISTORY: See Below FAMILY HISTORY: See Below SOCIAL HISTORY: See Below HOME MEDICATIONS: See Below ALLERGIES: See Below VITALS: See Below PHYSICAL EXAMINATION: VITAL SIGNS - Vital signs and nursing notes were reviewed. GENERAL - 65-year-old female appearing stated age who is in no acute distress. Communicates well with provider and answers questions appropriately. SKIN - Without rashes. HEAD - NC/AT. EYES - PERRL with EOMI bilaterally. Sclera anicteric. Palpebral conjunctiva pink and moist with no injection noted. EARS - No deformities of external structures noted on gross examination bilaterally. NOSE - Midline and without cyanosis. No epistaxis or purulent drainage noted. Septum midline without deviation or septal hematoma noted. MOUTH/OROPHARYNX - Without perioral cyanosis. Buccal mucosa pink and moist and without leukoplakia. Tongue midline with equal elevation of palate bilaterally. No tonsillar hypertrophy, erythema, or exudates noted. NECK - Neck with FROM. Supple to palpation. No nuchal rigidity. LUNGS - Chest wall symmetric without accessory muscle use, intercostals retractions, or central cyanosis. Normal vesicular breath sounds CTA B/L. No wheezes, rales, or rhonchi appreciated. CARDIAC - RRR with S1/S2. No murmur, rubs, or gallops appreciated. ABDOMEN - Abdominal contour without pulsations or visible masses. Abdomen distended and tender throughout. EXTREMITIES - No clubbing or peripheral cyanosis. No pretibial edema present. +3/5 radial, posterior tibial, and dorsalis pedis pulses palpated throughout. +5/5 strength noted in UE/LE bilaterally. NEUROLOGIC - Cranial nerves II through XII grossly intact. Sensory intact to light touch throughout. Patellar reflexes +2/4. PSYCH - A&Ox3 and cooperates fully with examiner. Pt is very pleasant and interacts well with examiner. MEDICAL DECISION MAKING: Patient was seen and evaluated as above in room B5. Review was performed of nursing notes and vital signs. I did review pertinent previous visits and patient history. After obtaining a thorough history and physical examination the above work up was performed. This 65-year-old female who presents emergency department complaining of abdominal pain that has been ongoing for the past 2 days. She was sent in by her primary care physician for a enema. The patient does have an elevation in her white blood cell count consistent with vomiting. Using [employer] de cision making the patient was sent for CAT scan of the abdomen and pelvis. CAT scan was reviewed by me is concerning for acute appendicitis. The patient was started on IV antibiotics. I did discuss the case with Dr. Faulkner who did agree to take the patient to the operating room. An order was placed for continuous cardiac monitoring. The monitor shows a rate of 85 with Normal SInus rhythm. The patient was evaluated during a period of high volume and high acuity during the global COVID-19 pandemic, and that diagnosis was suspected/considered upon their initial presentation. Their evaluation, treatment and testing was consistent with current guidelines for patients who present with complaints or symptoms that may be related to COVID-19. Patient was seen while provider was wearing PPE. Triage Nursing notes reviewed. Prior medical records reviewed Vital Signs: reviewed and remarkable for no significant abnormalities Differential diagnosis: Appendicitis, ovarian cyst, ovarian torsion, ectopic , TOA, PID, infections, diverticulitis, UTI, obstruction, mesenteric ischemia, aortic pathology, inflammatory bowel disease, renal colic, PUD, pancreatitis, biliary pathology, hernia, volvulus, constipation, as well as other pathologies. ER treatment provided: See below Diagnostics interpreted by me: ECG: none Laboratory studies: As stated above and show below. Imaging studies: See below Consultation(s): Gen Surgery- will take to operating room Past Med/Surg History Medical History Anxiety Asthma Cataract RIGHT EYE Coronary artery disease Depression Diastolic dysfunction Grade 2 Dyslipidemia Environmental allergies DOG DANDER AND DUST GERD (gastroesophageal reflux disease) Hx of myocardial infarction 2012 Hyperlipidemia Hypertension Rheumatoid arthritis Surgical History History of cardiac catheterization 05/2019 - [facility] - [place] - 2 stents placed 2012 - [facility] [place] - NO STENTS History of colonoscopy Hx of hernia repair Hx of left cataract extraction Nausea and vomiting after administration of anesthetic agent Family History Mother Breast cancer Diabetes Brother Diabetes Father , 2 weeks ago Stroke Coronary heart disease Skin cancer Hypertension Social History Smoking Status: Never smoker Second Hand Exposure: No; Hx Alcohol Use: No Hx Substance Use: No Preferred Language: [place]ese Communication Ability: Effective Recreation Adviser Required: No Beliefs That Will Affect Care: None Current Living Situation: Spouse current occupational status: employed 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 Feels Safe at Home: Yes Assistive Devices: Glasses Allergies Allergies Allergy/AdvReac Type Severity Reaction Status Date / Time No Known Allergies Allergy Verified 01/03/21 17:05 Home Meds Home Medications Medication Instructions Recorded Confirmed aspirin 81 mg tablet,delayed 81 mg PO QAM 03/16/19 01/03/21 release (Aspirin Low Dose) clonazepam 0.5 mg tablet 0.25 mg PO QPM 03/16/19 01/03/21 estradiol 10 mcg vaginal tablet 10 mcg VAGINAL DIRECTED PRN 03/16/19 01/03/21 (Vagifem) isosorbide mononitrate 30 mg 30 mg PO QAM 03/16/19 01/03/21 tablet,extended release 24 hr lamotrigine 150 mg tablet 150 mg PO QPM 03/16/19 01/03/21 metoprolol succinate 50 mg 50 mg PO QAM 03/16/19 01/03/21 tablet,extended release 24 hr nitroglycerin 0.4 mg sublingual 0.4 mg SUBLINGUAL DIRECTED PRN 03/16/19 01/03/21 tablet buspirone 15 mg tablet 7.5 mg PO AMHS 04/23/19 01/03/21 lamotrigine 200 mg tablet 200 mg PO QAM 04/23/19 01/03/21 lutein 10 mg tablet 10 mg PO DAILY 04/23/19 01/03/21 sejelglu-uut-[id number]-FA-Ca carb-vit K 1 tab PO DAILY 04/23/19 01/03/21 18 mg iron-400 mcg-500 mg tablet (One-A-Day Womens Formula) pantoprazole 20 mg tablet,delayed 20 mg PO BID 04/23/19 01/03/21 release rosuvastatin 40 mg tablet 40 mg PO HS 04/23/19 01/03/21 Results & Data (ED) Vital Signs Vital Signs - 24 hr 01/03/21 15:16 01/03/21 17:13 01/03/21 17:30 Temperature 37.0 C Temperature Source Skin Pulse Rate 110 H 86 Pulse Rate [Apical] 85 Pulse Rate from SpO2 Sensor 87 Respiratory Rate 18 17 20 Blood Pressure 115/77 103/54 L Blood Pressure [Left Arm] 125/70 Blood Pressure Mean 89 70 Blood Pressure Mean [Left Arm] 88 Pulse Oximetry 98 99 98 Oxygen Delivery Method Room Air Room Air Room Air Oxygen Flow Rate Sepsis Recent Fever Within 48 Hours No Sepsis New/Unexplained Change in Mental Status No Sepsis Action Taken by Nursing No Action Required 01/03/21 18:00 01/03/21 18:34 01/03/21 19:11 Temperature Temperature Source Pulse Rate 77 88 93 H Pulse Rate [Apical] Pulse Rate from SpO2 Sensor 78 87 Respiratory Rate 23 22 Blood Pressure 117/64 144/75 H Blood Pressure [Left Arm] Blood Pressure Mean 81 98 Blood Pressure Mean [Left Arm] Pulse Oximetry 98 96 Oxygen Delivery Method Room Air Room Air Oxygen Flow Rate Sepsis Recent Fever Within 48 Hours Sepsis New/Unexplained Change in Mental Status Sepsis Action Taken by Nursing 01/03/21 19:30 01/03/21 20:00 01/03/21 20:30 Temperature Temperature Source Pulse Rate 89 87 81 Pulse Rate [Apical] Pulse Rate from SpO2 Sensor 89 88 82 Respiratory Rate 23 25 H 23 Blood Pressure 116/67 144/81 H 134/74 Blood Pressure [Left Arm] Blood Pressure Mean 83 102 94 Blood Pressure Mean [Left Arm] Pulse Oximetry 96 97 96 Oxygen Delivery Method Oxygen Flow Rate Sepsis Recent Fever Within 48 Hours Sepsis New/Unexplained Change in Mental Status Sepsis Action Taken by Nursing 01/03/21 21:00 01/03/21 21:48 01/03/21 23:38 Temperature Temperature Source Pulse Rate 82 92 H Pulse Rate [Apical] Pulse Rate from SpO2 Sensor 82 Respiratory Rate 22 17 Blood Pressure 139/67 Blood Pressure [Left Arm] Blood Pressure Mean 91 Blood Pressure Mean [Left Arm] Pulse Oximetry 96 Oxygen Delivery Method Room Air Oxygen Flow Rate Sepsis Recent Fever Within 48 Hours Sepsis New/Unexplained Change in Mental Status Sepsis Action Taken by Nursing 01/03/21 23:43 01/03/21 23:48 01/03/21 23:53 Temperature 36.5 C Temperature Source Pulse Rate 84 83 80 Pulse Rate [Apical] Pulse Rate from SpO2 Sensor 85 82 79 Respiratory Rate 20 20 21 Blood Pressure 149/72 H 129/69 136/67 Blood Pressure [Left Arm] Blood Pressure Mean 114 108 86 Blood Pressure Mean [Left Arm] Pulse Oximetry 98 96 97 Oxygen Delivery Method Oxymask Oxygen Flow Rate 10 6 Sepsis Recent Fever Within 48 Hours Sepsis New/Unexplained Change in Mental Status Sepsis Action Taken by Longterm Medications Current Medication List: was personally reviewed by me Laboratory Data Attestation: I reviewed the patient's lab results. Result diagrams: 01/03/21 16:20 01/03/21 16:20 Lab Results 01/03/21 01/03/21 01/03/21 Range/Units 16:20 16:20 16:20 WBC 16.58 H (4.8-10.8) K/uL RBC 4.59 (4.2-5.4) M/uL Hgb 14.3 (12.0-16.0) g/dL Hct 40.8 (37-47) % MCV 88.9 (80-100) fL MCH 31.2 (25-34) pg MCHC 35.0 (32-36) g/dL RDW Std Deviation 40.0 (36.4-46.3) fL RDW Coeff of Vinayak 12.5 (11.5-14.5) % Plt Count 243 (130-400) K/uL MPV 9.4 (7.4-10.4) fL Immature Gran % (Auto) 0.4 % Neut % (Auto) 89.5 % Lymph % (Auto) 3.7 % [place] % (Auto) 6.3 % Eos % (Auto) 0.0 % Baso % (Auto) 0.1 % Neut # (Auto) 14.84 H (1.4-6.5) K/uL Lymph # (Auto) 0.62 L (1.2-3.4) K/uL [place] # (Auto) 1.05 H (0.11-0.59) K/uL Eos # (Auto) 0.00 (0-0.5) K/uL Baso # (Auto) 0.01 (0-0.2) K/uL Immature Gran # (Auto) 0.06 H (0.00-0.02) K/uL Sodium 133 L (136-145) mmol/L Potassium 4.6 (3.5-5.1) mmol/L Chloride 98 (98-107) mmol/L Carbon Dioxide 30 (21-32) mmol/L Anion Gap 5.0 (3-11) BUN 17 (7-18) mg/dl Creatinine 1.02 (0.6-1.2) mg/dl Est Cr Clr Drug Dosing 41.5 ml/min Est GFR ( Amer) 66.4 ml/min Est GFR (Non-Af Amer) 57.3 ml/min BUN/Creatinine Ratio 16.8 (10-20) Glucose 123 H (70-99) mg/dl Calcium 9.8 (8.5-10.1) mg/dl Total Bilirubin 1.0 (0.2-1) mg/dl AST 13 L (15-37) U/L ALT 23 (12-78) U/L Alkaline Phosphatase 66 (45-117) U/L Total Creatine Kinase 35 (26-192) U/L CK-MB (CK-2) < 1.0 (0.5-3.6) ng/ml CK/CKMB % Calc TNP Troponin I < 0.015 (0-0.045) ng/ml Total Protein 7.4 (6.4-8.2) gm/dl Albumin 3.8 (3.4-5.0) gm/dl Globulin 3.6 (2.5-4.0) gm/dl Albumin/Globulin Ratio 1.1 (0.9-2) Lipase 69 L (73-393) U/L Urine Color Urine Appearance (Clear) Urine pH (4.5-7.5) Ur Specific [place] (1.000-1.030) Urine Protein (Negative) Urine Glucose (UA) (Negative) Urine Ketones (Negative) Urine Blood (Negative) Urine Nitrite (Negative) Urine Bilirubin (Negative) Urine Urobilinogen (Negative) Ur Leukocyte Esterase (Negative) COVID-19 Eval Order SARS-CoV-2 (PCR) (Negative) 01/03/21 01/03/21 01/03/21 Range/Units 19:55 20:00 20:00 WBC (4.8-10.8) K/uL RBC (4.2-5.4) M/uL Hgb (12.0-16.0) g/dL Hct (37-47) % MCV (80-100) fL MCH (25-34) pg MCHC (32-36) g/dL RDW Std Deviation (36.4-46.3) fL RDW Coeff of Vinayak (11.5-14.5) % Plt Count (130-400) K/uL MPV (7.4-10.4) fL Immature Gran % (Auto) % Neut % (Auto) % Lymph % (Auto) % [place] % (Auto) % Eos % (Auto) % Baso % (Auto) % Neut # (Auto) (1.4-6.5) K/uL Lymph # (Auto) (1.2-3.4) K/uL [place] # (Auto) (0.11-0.59) K/uL Eos # (Auto) (0-0.5) K/uL Baso # (Auto) (0-0.2) K/uL Immature Gran # (Auto) (0.00-0.02) K/uL Sodium (136-145) mmol/L Potassium (3.5-5.1) mmol/L Chloride (98-107) mmol/L Carbon Dioxide (21-32) mmol/L Anion Gap (3-11) BUN (7-18) mg/dl Creatinine (0.6-1.2) mg/dl Est Cr Clr Drug Dosing ml/min Est GFR ( Amer) ml/min Est GFR (Non-Af Amer) ml/min BUN/Creatinine Ratio (10-20) Glucose (70-99) mg/dl Calcium (8.5-10.1) mg/dl Total Bilirubin (0.2-1) mg/dl AST (15-37) U/L ALT (12-78) U/L Alkaline Phosphatase (45-117) U/L Total Creatine Kinase (26-192) U/L CK-MB (CK-2) (0.5-3.6) ng/ml CK/CKMB % Calc Troponin I (0-0.045) ng/ml Total Protein (6.4-8.2) gm/dl Albumin (3.4-5.0) gm/dl Globulin (2.5-4.0) gm/dl Albumin/Globulin Ratio (0.9-2) Lipase (73-393) U/L Urine Color Yellow Urine Appearance Clear (Clear) Urine pH 6.0 (4.5-7.5) Ur Specific [place] > 1.045 H (1.000-1.030) Urine Protein Negative (Negative) Urine Glucose (UA) Negative (Negative) Urine Ketones Negative (Negative) Urine Blood Negative (Negative) Urine Nitrite Negative (Negative) Urine Bilirubin Negative (Negative) Urine Urobilinogen Negative (Negative) Ur Leukocyte Esterase Negative (Negative) COVID-19 Eval Order Covid19 at [facility] SARS-CoV-2 (PCR) NEGATIVE (Negative) Administered Medications Hydromorphone HCl (Hydromorphone Inj 0.5 Mg/0.5 Ml Syr) 0.5 mg IV Q15M PRN PRN Reason: Pain Stop: 01/17/21 16:15 Last Admin: 01/03/21 19:55 Dose: 0.5 mg Documented by: [id number] Admin: 01/03/21 18:31 Dose: 0.5 mg Documented by: [id number] Admin: 01/03/21 16:25 Dose: 0.5 mg Documented by: [id number] Discontinued Medications Bacitracin (Bacitracin Oint 15 Gm Tube) Confirm Administered Dose 45 appln .ROUTE .STElectronifie-MED ONE Stop: 01/03/21 20:51 Last Admin: 01/03/21 22:52 Dose: 45 appln Documented by: [id number] Bupivacaine HCl (Bupivacaine 0.5 % 5 Mg/1 Ml Mpf 30ml Vial) Confirm Administered Dose 30 ml .ROUTE .STK-MED ONE Stop: 01/03/21 20:51 Last Admin: 01/03/21 23:12 Dose: 9 ml Documented by: [id number] Sodium Chloride (Nss 1000ml) 1,000 mls @ 999 mls/hr IV .Q1H1M ONE Stop: 01/03/21 17:16 Last Infusion: 01/03/21 17:26 Dose: 0 mls/hr Documented by: [id number] Admin: 01/03/21 16:25 Dose: 999 mls/hr Documented by: [id number] Acetaminophen (Ofirmev) 1,000 mg in 100 mls @ 400 mls/hr IV NOW STA Stop: 01/03/21 16:30 Last Infusion: 01/03/21 16:40 Dose: 0 mls/hr Documented by: [id number] Admin: 01/03/21 16:25 Dose: 400 mls/hr Documented by: [id number] Cefoxitin Sodium (Mefoxin) 2,000 mg in 60 mls @ 100 mls/hr IV NOW STA Stop: 01/03/21 20:02 Last Infusion: 01/03/21 21:50 Dose: 0 mls/hr Documented by: [id number] Admin: 01/03/21 21:18 Dose: 100 mls/hr Documented by: [id number] Ioversol (Optiray 320 100ml) 95 ml IV ONCE ONE Stop: 01/03/21 19:00 Last Admin: 01/03/21 18:59 Dose: 95 ml Documented by: [id number] Lidocaine HCl (Lidocaine 1% Local 20 Ml Vial) Confirm Administered Dose 20 ml .ROUTE .STK-MED ONE Stop: 01/03/21 20:51 Last Admin: 01/03/21 23:12 Dose: 9 ml Documented by: [id number] Magnesium Citrate (Magnesium Citrate 296 Ml/Btl) 148 ml PO NOW STA Stop: 01/03/21 16:19 Last Admin: 01/03/21 16:25 Dose: 148 ml Documented by: [id number] Metoclopramide HCl (Metoclopramide Hcl Inj 5 Mg/Ml 2 Ml Vial) 10 mg IV NOW STA Stop: 01/03/21 16:17 Last Admin: 01/03/21 16:25 Dose: 10 mg Documented by: [id number] Imaging Data Radiologist's Impression: Abdomen/Pelvis CT 01/03/21 16:16 CT abd pelvis oral and IV con CLINICAL HISTORY: Diffuse abdominal pain COMPARISON STUDY: Gallbladder ultrasound dated 04/23/2019 TECHNIQUE: The patient was scanned following administration of dilute oral contrast, and in a dynamic helical fashion during intravenous administration of 95 cc of Optiray 320 A dose lowering technique was utilized adhering to the principles of ALARA. CT DOSE: 254.25 mGy.cm FINDINGS: Lower chest: There are mild dependent atelectatic changes present. Liver: The contrast-enhanced liver is normal in size, contour, and attenuation. There is no intrahepatic biliary ductal dilatation. The hepatic veins and portal veins are patent. Gallbladder: Unremarkable. Spleen: There is minor nonspecific infiltration of the fat adjacent to the medial aspect the spleen, anterior to the kidney, and posterior to the stomach. Pancreas: Unremarkable. Adrenal glands: Unremarkable. Kidneys: There is symmetric renal cortical enhancement. The kidneys are normal in size without hydronephrosis. Bowel: There are no transition zones to indicate bowel obstruction. There is no evidence of acute diverticulitis. There is a small hiatal hernia. There are multiple fluid-filled small bowel loops, and colonic air-fluid levels, likely secondary to a mild ileus. There is a dilated fluid-filled appendix with per iappendiceal inflammatory change. The findings are indicative of acute appendicitis. There is secondary wall thickening of the terminal ileum. There is secondary infiltration of the right adnexal fat. Peritoneum: There is a small amount of free pelvic fluid. There is no free intraperitoneal air. Vasculature: The abdominal aorta is normal in course and caliber. Adenopathy: None. Pelvic viscera: Infiltration of the fat surrounding the right adnexal structures is likely a reactive finding secondary to acute appendicitis Skeletal structures: No destructive osseous lesions are seen. IMPRESSION: 1. CT findings indicative of acute appendicitis. Surgical consultation recommended. ACT 112: Negative or not required by law. Electronically signed by: Jaime Marshall M.D. 01/03/2021 7:12 PM Chest X-Ray 01/03/21 19:41 XR chest 1V portable CLINICAL HISTORY: Abdominal pain. Acute appendicitis. Preoperative chest. COMPARISON STUDY: 04/23/2019 FINDINGS: The cardiac and mediastinal contours are normal. There is no evidence of focal pulmonary consolidation. There is no evidence of failure. No pleural effusions are visualized.[There is been interval resolution of the previously described right perihilar airspace opacity IMPRESSION: No active disease in the chest. ACT 112: Negative or not required by law. Electronically signed by: Jaime Marshall M.D. 01/03/2021 8:24 PM Discharge Plan Visit Data Chief Complaint: Constipation Stated Complaint: CONSTIPATION ED Provider: Felix Nickerson Discharge Problem: Abdominal pain, Acute appendicitis Patient Disposition: Admitted As Inpatient Discharge Instructions Interventions: ED Discharge Assessment Last Done: 01/03/21 21:48 Discharge Problem: Abdominal pain Qualifiers: Abdominal location: right lower quadrant Qualified Code(s): R10.31 - Right lower quadrant pain Acute appendicitis Qualifiers: Acute appendicitis type: unspecified acute appendicitis type Qualified Code(s): K35.80 - Unspecified acute appendicitis
[2021-01-03] MEDS ORDERED: OPTIRAY 320 100ml IV ONE (18:59)
--- NOTE | 2021-01-03 19:13 | CT Scan Report ---
CT abd pelvis oral and IV con CLINICAL HISTORY: Diffuse abdominal pain COMPARISON STUDY: Gallbladder ultrasound dated 04/23/2019 TECHNIQUE: The patient was scanned following administration of dilute oral contrast, and in a dynamic helical fashion during intravenous administration of 95 cc of Optiray 320 A dose lowering technique was utilized adhering to the principles of ALARA. CT DOSE: 254.25 mGy.cm FINDINGS: Lower chest: There are mild dependent atelectatic changes present. Liver: The contrast-enhanced liver is normal in size, contour, and attenuation. There is no intrahepa tic biliary ductal dilatation. The hepatic veins and portal veins are patent. Gallbladder: Unremarkable. Spleen: There is minor nonspecific infiltration of the fat adjacent to the medial aspect the spleen, anterior to the kidney, and posterior to the stomach. Pancreas: Unremarkable. Adrenal glands: Unremarkable. Kidneys: There is symmetric renal cortical enhancement. The kidneys are normal in size without hydron ephrosis. Bowel: There are no transition zones to indicate bowel obstruction. There is no evidence of acute div erticulitis. There is a small hiatal hernia. There are multiple fluid-filled small bowel loops, and c olonic air-fluid levels, likely secondary to a mild ileus. There is a dilated fluid-filled appendix w ith periappendiceal inflammatory change. The findings are indicative of acute appendicitis. There is secondary wall thickening of the terminal ileum. There is secondary infiltration of the right adnexal fat. Peritoneum: There is a small amount of free pelvic fluid. There is no free intraperitoneal air. Vasculature: The abdominal aorta is normal in course and caliber. Adenopathy: None. Pelvic viscera: Infiltration of the fat surrounding the right adnexal structures is likely a reactive finding secondary to acute appendicitis Skeletal structures: No destructive osseous lesions are seen. IMPRESSION: 1. CT findings indicative of acute appendicitis. Surgical consultation recommended. ACT 112: Negative or not required by law. Electronically signed by: Jaime Marshall M.D. 01/03/2021 7:12 PM
[2021-01-03] MEDS ORDERED: cefOXitin 2,000 MG/60 ML BAG IV STA ×2 (19:27→21:13)
[2021-01-03 20:05] LABS: Creatine Kinase 35 U/L (26-192); Creatine Kinase MB < 1.0 ng/ml (0.5-3.6); Troponin I < 0.015 ng/ml (0-0.045)
[2021-01-03 20:25] LABS: Appearance Urine Clear (Clear); Bilirubin Urine Negative (Negative); Blood Urine Negative (Negative); Color Urine Yellow; Glucose Urine UA Negative (Negative); Ketones Urine Negative (Negative); Leukocyte Esterase Urine Negative (Negative); Nitrite Urine Negative (Negative); Protein Urine Negative (Negative); Specific Gravity Urine > 1.045 (1.000-1.030); Urobilinogen Urine Negative (Negative)
--- NOTE | 2021-01-03 20:25 | XRay Report ---
XR chest 1V portable CLINICAL HISTORY: Abdominal pain. Acute appendicitis. Preoperative chest. COMPARISON STUDY: 04/23/2019 FINDINGS: The cardiac and mediastinal contours are normal. There is no evidence of focal pulmonary co nsolidation. There is no evidence of failure. No pleural effusions are visualized.[There is been inte rval resolution of the previously described right perihilar airspace opacity IMPRESSION: No active disease in the chest. ACT 112: Negative or not required by law. Electronically signed by: Jaime Marshall M.D. 01/03/2021 8:24 PM
[2021-01-03] MEDS ORDERED: LIDOCAINE 1% LOCAL 20 ML VIAL ONE (20:50)
[2021-01-03] MEDS ORDERED: BUPIVACAINE 0.5 % 5 MG/1 ML MPF 30ML VIAL ONE (20:50)
[2021-01-03] MEDS ORDERED: BACITRACIN OINT 15 GM TUBE ONE (20:50)
--- NOTE | 2021-01-03 21:07 | Surgery Consultation ---
Date of Consultation January 03, 2021 Assessment & Plan (1) Acute appendicitis with generalized peritonitis: pt is a 65 year-old female who presents to ER with 2 days history acute RLQ pain, CT scan- acute appendicitis, IMP: acute appendicitis with generalized peritonitis, Plan, I recommend to do laparoscopic appendectomy, possible open , D/W benefits, risks and alternatives of the surgery, the risks -infection, bleeding, abscess, sepsis, multiple organs failure, [place], , pt and her understood, they agree with surgery, pt signed informed consent, I answered all questions, pre-op iv antibiotic History of Present Illness Reason for Consultation: acute appendicitis Requesting Physician: Felix Nickerson MD Attending Physician: Ken Faulkner MD History of Present Illness CHIEF COMPLAINT: Abd pain HPI: This is a 65-year-old female who presents to the emergency department with her . The patient's reports that the patient has been having abdominal pain since Saturday. The patient herself reports that she is been unable to have any bowel movements. The patient's reports that they were sent in by the [facility] PCP for an enema. The patient herself reports she has been unable to keep any medicines down including Pepto-Bismol as well as Pepcid. She is describing abdominal pain with no radiation. She denies any fevers or chills she reports nothing appears to make the pain any better or worse. Patient's reports that the patient does have a history of hernia repair however the patient reports that she still has her appendix and her gallbladder. I ( Ken Faulkner MD ) got a call for consult acute appendicitis, I reviewed pt's H/P, labs, CT scan finding with pt and her , pt is still have significant abdominal pain, Allergies Allergy/AdvReac Type Severity Reaction Status Date / Time No Known Allergies Allergy Verified 01/03/21 17:05 Home Medications Medication Instructions Recorded Confirmed Type aspirin 81 mg tablet,delayed 81 mg PO QAM 03/16/19 01/03/21 History release (Aspirin Low Dose) clonazepam 0.5 mg tablet 0.25 mg PO QPM 03/16/19 01/03/21 History estradiol 10 mcg vaginal tablet 10 mcg VAGINAL DIRECTED PRN 03/16/19 01/03/21 History (Vagifem) isosorbide mononitrate 30 mg 30 mg PO QAM 03/16/19 01/03/21 History tablet,extended release 24 hr lamotrigine 150 mg tablet 150 mg PO QPM 03/16/19 01/03/21 History metoprolol succinate 50 mg 50 mg PO QAM 03/16/19 01/03/21 History tablet,extended release 24 hr nitroglycerin 0.4 mg sublingual 0.4 mg SUBLINGUAL DIRECTED PRN 03/16/19 01/03/21 History tablet buspirone 15 mg tablet 7.5 mg PO AMHS 04/23/19 01/03/21 History lamotrigine 200 mg tablet 200 mg PO QAM 04/23/19 01/03/21 History lutein 10 mg tablet 10 mg PO DAILY 04/23/19 01/03/21 History gnhsszyz-kup-eile-FA-Ca carb-vit K 1 tab PO DAILY 04/23/19 01/03/21 History 18 mg iron-400 mcg-500 mg tablet (One-A-Day Womens Formula) pantoprazole 20 mg tablet,delayed 20 mg PO BID 04/23/19 01/03/21 History release rosuvastatin 40 mg tablet 40 mg PO HS 04/23/19 01/03/21 History Patient History Medical History (Updated 01/03/21 @ 21:08 by Ken Faulkner MD) Anxiety Asthma Cataract RIGHT EYE Coronary artery disease Depression Dyslipidemia Environmental allergies DOG DANDER AND DUST GERD (gastroesophageal reflux disease) Hx of myocardial infarction 2012 Hyperlipidemia Hypertension Rheumatoid arthritis Surgical History History of cardiac catheterization 05/2019 - [facility] - [place] - 2 stents placed 2012 - [facility] [place] - NO STENTS History of colonoscopy Hx of hernia repair Hx of left cataract extraction Nausea and vomiting after administration of anesthetic agent Family History Mother Breast cancer Diabetes Brother Diabetes Father , 2 weeks ago Stroke Coronary heart disease Skin cancer Hypertension Social History Smoking Status: Never smoker Second Hand Exposure: No; Hx Alcohol Use: No Hx Substance Use: No Preferred Language: Kyrgyz Communication Ability: Effective Production Control Coordinator Required: No Beliefs That Will Affect Care: None Current Living Situation: Spouse current occupational status: employed 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 Feels Safe at Home: Yes Assistive Devices: Glasses Review of Systems Constitutional: as per Subjective / HPI Eyes: as per Subjective / HPI Respiratory: as per Subjective / HPI and + problem reported (asthma) Cardiovascular: Additional Comments: CAD, [place] 8 years ago, cardiac stent, HTN Gastrointestinal: GERD Genitourinary: as per Subjective / HPI Musculoskeletal: as per Subjective / HPI rheumatoid arthritis Neurologic: as per Subjective / HPI Psychiatric: as per Subjective / HPI Endocrine: as per Subjective / HPI Physical Exam Constitutional: WD/WN, vitals as above Eyes: PERRL, conjunctivae normal, anicteric sclerae cataract Neck: trachea midline, no thyromegaly Respiratory: normal respiratory effort, lungs clear to auscultation Cardiovascular: RRR, no murmur, no edema Gastrointestinal (Abdomen): soft, diffuse tenderness at whole abdomen with rebound pain, BS -, mild distend, Musculoskeletal: no cyanosis or clubbing, extremities motor strength 5/5 Neurologic: patellar DTR's 2+ bilat, sensation intact Psychiatric: A+Ox3, euthymic affect Results & Data ([facility]) Vital Signs (Past 12 Hours) Vital Signs Temp Pulse Pulse Resp BP BP Pulse Ox 01/03/21 20:00 87 25 H 144/81 H 97 01/03/21 19:30 89 23 116/67 96 01/03/21 19:11 93 H 01/03/21 18:34 88 22 144/75 H 96 01/03/21 18:00 77 23 117/64 98 01/03/21 17:30 86 20 103/54 L 98 01/03/21 17:13 85 17 125/70 99 01/03/21 15:16 37.0 C 110 H 18 115/77 98 Laboratory Results Abnormal lab results 01/03/21 01/03/21 01/03/21 Range/Units 16:20 16:20 19:55 WBC 16.58 H (4.8-10.8) K/uL Neut # (Auto) 14.84 H (1.4-6.5) K/uL Lymph # (Auto) 0.62 L (1.2-3.4) K/uL [place] # (Auto) 1.05 H (0.11-0.59) K/uL Immature Gran # (Auto) 0.06 H (0.00-0.02) K/uL Sodium 133 L (136-145) mmol/L Glucose 123 H (70-99) mg/dl AST 13 L (15-37) U/L Lipase 69 L (73-393) U/L Ur Specific [place] > 1.045 H (1.000-1.030) Diagnostic Findings CT abd pelvis oral and IV con CLINICAL HISTORY: Diffuse abdominal pain COMPARISON STUDY: Gallbladder ultrasound dated 04/23/2019 TECHNIQUE: The patient was scanned following administration of dilute oral contrast, and in a dynamic helical fashion during intravenous administration of 95 cc of Optiray 320 A dose lowering technique was utilized adhering to the principles of ALARA. CT DOSE: 254.25 mGy.cm FINDINGS: Lower chest: There are mild dependent atelectatic changes present. Liver: The contrast-enhanced liver is normal in size, contour, and attenuation. There is no intrahepatic biliary ductal dilatation. The hepatic veins and portal veins are patent. Gallbladder: Unremarkable. Spleen: There is minor nonspecific infiltration of the fat adjacent to the medial aspect the spleen, anterior to the kidney, and posterior to the stomach. Pancreas: Unremarkable. Adrenal glands: Unremarkable. Kidneys: There is symmetric renal cortical enhancement. The kidneys are normal in size without hydronephrosis. Bowel: There are no transition zones to indicate bowel obstruction. There is no evidence of acute diverticulitis. There is a small hiatal hernia. There are multiple fluid-filled small bowel loops, and colonic air-fluid levels, likely secondary to a mild ileus. There is a dilated fluid-filled appendix with periappendiceal inflammatory change. The findings are indicative of acute appendicitis. There is secondary wall thickening of the terminal ileum. There is secondary infiltration of the right adnexal fat. Peritoneum: There is a small amount of free pelvic fluid. There is no free intraperitoneal air. Vasculature: The abdominal aorta is normal in course and caliber. Adenopathy: None. Pelvic viscera: Infiltration of the fat surrounding the right adnexal structures is likely a reactive finding secondary to acute appendicitis Skeletal structures: No destructive osseous lesions are seen. IMPRESSION: 1. CT findings indicative of acute appendicitis. Surgical consultation recommended.
--- NOTE | 2021-01-03 21:14 | History & Physical Bridge Note ---
Date of Service January 03, 2021 History & Physical Bridge Note I have examined the patient, reviewed the History & Physical and in the interval since the performance of the History & Physical I have noted the following changes of clinical significance: no changes noted
--- NOTE | 2021-01-03 21:20 | Anesthesiology Consultation ---
Date of Service January 03, 2021 Assessment & Plan (1) Encounter for pre-operative examination: Chart Review Chart Review: Acceptable Risk for Surgery (necessary surgery) and Patient NOT seen in Pre Admission Testing Consults Requested none History Surgery Operation Date: 01/03/21 21:30 Proposed Procedures p Laparoscopic Appendectomy(Not Applicable) - Ken Faulkner MD Height/Weight Height: 5 ft 2 in Weight: 48.4 kg Allergies Allergy/AdvReac Type Severity Reaction Status Date / Time No Known Allergies Allergy Verified 01/03/21 17:05 Medications Home Medications Medication Instructions Recorded Confirmed Last Taken aspirin 81 mg tablet,delayed 81 mg PO QAM 03/16/19 01/03/21 01/03/21 release (Aspirin Low Dose) clonazepam 0.5 mg tablet 0.25 mg PO QPM 03/16/19 01/03/21 01/02/21 estradiol 10 mcg vaginal tablet 10 mcg VAGINAL DIRECTED PRN 03/16/19 01/03/21 Unknown (Vagifem) isosorbide mononitrate 30 mg 30 mg PO QAM 03/16/19 01/03/21 01/03/21 tablet,extended release 24 hr lamotrigine 150 mg tablet 150 mg PO QPM 03/16/19 01/03/21 01/02/21 metoprolol succinate 50 mg 50 mg PO QAM 03/16/19 01/03/21 01/03/21 tablet,extended release 24 hr nitroglycerin 0.4 mg sublingual 0.4 mg SUBLINGUAL DIRECTED PRN 03/16/19 01/03/21 Unknown tablet buspirone 15 mg tablet 7.5 mg PO AMHS 04/23/19 01/03/21 01/03/21 08:00 lamotrigine 200 mg tablet 200 mg PO QAM 04/23/19 01/03/21 01/03/21 lutein 10 mg tablet 10 mg PO DAILY 04/23/19 01/03/21 01/03/21 rqkujtjf-wgr-bizw-FA-Ca carb-vit K 1 tab PO DAILY 04/23/19 01/03/21 01/03/21 18 mg iron-400 mcg-500 mg tablet (One-A-Day Womens Formula) pantoprazole 20 mg tablet,delayed 20 mg PO BID 04/23/19 01/03/21 01/03/21 08:00 release rosuvastatin 40 mg tablet 40 mg PO HS 04/23/19 01/03/21 01/02/21 Active Medications Generic Name Dose Route Start Last Admin Trade Name Ross PRN Reason Stop Dose Admin Hydromorphone HCl 0.5 mg 01/03/21 16:16 01/03/21 19:55 Hydromorphone Inj 0.5 Mg/0.5 Ml Syr IV 01/17/21 16:15 0.5 mg Q15M PRN Administration Pain Past Medical History Medical History Anxiety Asthma Cataract RIGHT EYE Coronary artery disease Depression Diastolic dysfunction Grade 2 Dyslipidemia Environmental allergies DOG DANDER AND DUST GERD (gastroesophageal reflux disease) Hx of myocardial infarction 2012 Hyperlipidemia Hypertension Rheumatoid arthritis Past Family History Family History Mother Breast cancer Diabetes Brother Diabetes Father , 2 weeks ago Stroke Coronary heart disease Skin cancer Hypertension Past Surgical History Surgical History History of cardiac catheterization 05/2019 - [facility] - [place] - 2 stents placed 2012 - [facility] [place] - NO STENTS History of colonoscopy Hx of hernia repair Hx of left cataract extraction Nausea and vomiting after administration of anesthetic agent Social History Smoking Status: Never smoker Hx Alcohol Use: No Hx Substance Use: No substance use type: does not use Physical Exam Vital Signs Last Vital Signs Temp 37.0 C 01/03/21 15:16 Pulse 82 01/03/21 21:00 Resp 22 01/03/21 21:00 BP 139/67 01/03/21 21:00 Pulse Ox 96 01/03/21 21:00 Testing Laboratory Results 01/03/21 16:20 01/03/21 16:20 Urine Color Yellow 01/03/21 19:55 Urine Appearance Clear (Clear) 01/03/21 19:55 Urine pH 6.0 (4.5-7.5) 01/03/21 19:55 Ur Specific [place] > 1.045 (1.000-1.030) H 01/03/21 19:55 Urine Protein Negative (Negative) 01/03/21 19:55 Urine Glucose (UA) Negative (Negative) 01/03/21 19:55 Urine Ketones Negative (Negative) 01/03/21 19:55 Urine Nitrite Negative (Negative) 01/03/21 19:55 Ur Leukocyte Esterase Negative (Negative) 01/03/21 19:55 Electrocardiogram Date: 01/03/21 Findings: + NSR @ (83), + NSST changes and + T wave inversion (V1-V3) Chest X-Ray Date: 01/03/21 XR chest 1V portable CLINICAL HISTORY: Abdominal pain. Acute appendicitis. Preoperative chest. COMPARISON STUDY: 04/23/2019 FINDINGS: The cardiac and mediastinal contours are normal. There is no evidence of focal pulmonary consolidation. There is no evidence of failure. No pleural effusions are visualized.[There is been interval resolution of the previously described right perihilar airspace opacity IMPRESSION: No active disease in the chest. ACT 112: Negative or not required by law. Electronically signed by: Jaime Marshall M.D. 01/03/2021 8:24 PM Dictated: 01/03/212022Transcribed: 01/03/212022 Echocardiogram Date: 04/24/19 EF: 60-65 Other Findings: + diastolic dysfunction (grade 2) mild TR
[2021-01-03] MEDS ORDERED: ATROPINE SULFATE 0.1 MG/ML 10ML SYR IV PRN (21:24)
[2021-01-03] MEDS ORDERED: ePHEDrine sulfate 50 MG/ML AMP IV PRN (21:24)
[2021-01-03] MEDS ORDERED: LABETALOL HCL IV 5 MG/ML 20ML IV PRN (21:24)
[2021-01-03] MEDS ORDERED: HYDROmorphone INJ 1 MG/ML SYRINGE IV PRN (21:24)
[2021-01-03] MEDS ORDERED: PHENYLEPHRINE 100MCG/ML 5ML SYR IV PRN (21:24)
[2021-01-03] MEDS ORDERED: ONDANSETRON INJ 2 MG/ML 2 ML VIAL IV PRN (21:24)
[2021-01-03] MEDS ORDERED: MEPERIDINE HCL 25 MG/ML CARP/VIAL IV PRN (21:24)
[2021-01-03] MEDS ORDERED: fentaNYL citrate 100 MCG/2 ML VIAL IV PRN (21:24)
[2021-01-03] MEDS ORDERED: fentaNYL citrate 100 MCG/2 ML VIAL ONE (21:37)
[2021-01-03] MEDS ORDERED: PROPOFOL IV EMULSION 10 MG/ML 20 ML VIAL IV ONE (21:37)
[2021-01-03] MEDS ORDERED: LIDOCAINE 2% 2 ML VIAL/AMP(20MG/ML) INFIL ONE (21:37)
[2021-01-03] MEDS ORDERED: DEXAMETHASONE SOD INJ 4 MG/ML VIAL ONE (21:38)
[2021-01-03] MEDS ORDERED: ONDANSETRON INJ 2 MG/ML 2 ML VIAL ONE ×2 (21:38→22:26)
[2021-01-03] MEDS ORDERED: ROCURONIUM BROMIDE 10 MG/ML 5 ML VIAL IV ONE (21:42)
[2021-01-03] MEDS ORDERED: SUCCINYLCHOLINE CHLORIDE 20 MG/ML 10 ML VIAL IV ONE (21:42)
[2021-01-03] MEDS ORDERED: NEOSTIGMINE METHYLSULFATE 1 MG/ML 10ML VIAL ONE (21:42)
[2021-01-03] MEDS ORDERED: GLYCOPYRROLATE 0.2 MG/ML VIAL ONE (21:42)
[2021-01-03] MEDS ORDERED: MIDAZOLAM HCL 1 MG/ML 2ML VIAL ONE (22:04)
[2021-01-03] MEDS ORDERED: KETOROLAC 30 MG/ML VIAL ONE (23:06)
--- NOTE | 2021-01-03 23:21 | Post Operative Brief Note ---
Immediate Post Op Note v1 Date of Surgery January 03, 2021 Pre & Post Diagnosis Operation Date: 01/03/21 21:30 Pre-Op Diagnosis: Acute appendicitis, with peritonitis Post-Op Diagnosis: Acute appendicitis, gangrenous appendix with perforation I identified the patient and participated in the time-out.: Yes Procedure Operation Date: 01/03/21 21:30 Actual Procedures p Laparoscopic Appendectomy(Not Applicable) - Ken Faulkner MD Surgeon Ken Faulkner MD Valve Maker surgical scheduler Estimated Blood Loss 10 Findings Consistent with Post-Op Diagnosis acute appendicitis, gangrenous appendix with perforation Fluids 1200ml Specimens appendix Drains John-Craig Drain (10fr Flat) Anesthesia Type General Complications none Disposition Accompanied Patient To Recovery: Yes
--- NOTE | 2021-01-04 00:09 | Anesthesiology Progress Note ---
Date of Service January 04, 2021 Anesthesia Post Procedure Vital Signs Vital Signs: Temp Pulse Pulse Resp BP BP Pulse Ox 01/03/21 23:53 80 21 136/67 97 01/03/21 23:48 83 20 129/69 96 01/03/21 23:43 36.5 C 84 20 149/72 H 98 01/03/21 23:38 92 H 17 01/03/21 21:00 82 22 139/67 96 01/03/21 20:30 81 23 134/74 96 01/03/21 20:00 87 25 H 144/81 H 97 01/03/21 19:30 89 23 116/67 96 01/03/21 19:11 93 H 01/03/21 18:34 88 22 144/75 H 96 01/03/21 18:00 77 23 117/64 98 01/03/21 17:30 86 20 103/54 L 98 01/03/21 17:13 85 17 125/70 99 01/03/21 15:16 37.0 C 110 H 18 115/77 98 Pain Intensity Abdomen: Pain Intensity: 2 Transfer of Care Handoff Completed per policy Notes Mental Status: alert / awake / arousable Patient Amnestic to Procedure: Yes Nausea / Vomiting: adequately controlled Pain: adequately controlled Airway Patency, RR, SpO2: stable & adequate BP & HR: stable & adequate Hydration State: stable & adequate Anesthetic Complications: no major complications apparent and Pt Satisfied with anesthetic care Notes: The patient is awake and comfortable. Her vital signs are stable.
[2021-01-04] MEDS ORDERED: HYDROmorphone INJ 0.5 MG/0.5 ML SYR IV PRN (00:58)
[2021-01-04] MEDS ORDERED: NITROGLYCERIN SL 0.4 MG/TAB TAB SL PRN (00:58)
[2021-01-04] MEDS ORDERED: PIPERACILL/TAZOBAC CONSULT ACTIVE PRN (00:58)
[2021-01-04] MEDS ORDERED: PIPERACILLIN/TAZOBACTAM 3.375 GM in DEXTROSE 5% 100 ML IV STA (01:30)
[2021-01-04] MEDS: LACTATED RINGER'S 1,000 ML IV SCH ×2 (01:35→14:32)
[2021-01-04] MEDS: PIPERACILLIN/TAZOBACTAM 3.375 GM in DEXTROSE 5% 100 ML IV SCH ×3 (05:38→22:27)
--- NOTE | 2021-01-04 05:55 | Operative Report (OR) ---
DATE OF PROCEDURE: 01/03/2021 PREOPERATIVE DIAGNOSIS: Acute appendicitis with peritonitis. POSTOPERATIVE DIAGNOSIS: Acute appendicitis, gangrene appendix with perforation. PROCEDURE: Laparoscopic appendectomy. SURGEON: Ken Faulkner MD ANESTHESIA: General. ESTIMATED BLOOD LOSS: About 10 mL. FINDINGS: Acute appendicitis, gangrene appendix with perforation. CULTURES: Peritoneal fluid. COMPLICATIONS: None. INDICATIONS: This is 65-year-old female who presented to ED with a 2-day history of right lower quad rant pain. The patient had a CT scan diagnosis of acute appendicitis. I recommended to do laparosco pic appendectomy, possible open. I did talk to the patient and the patient's about the benef it, the risk, alternate procedure. I indicated the risks may include, but not limited to, such as bl eeding, infection, abscess, sepsis, injury to the bowel, bowel obstruction, incisional hernia, myocar dial infarction, and even . They understand. The patient signed informed consent and I answere d all questions. DETAILS OF PROCEDURE: After we identified the patient and verified the procedure, we brought the pat ient to the OR, put the patient on the supine position. The patient received SCD on bilateral legs t o prevent DVT. Also, patient received 2 grams cefoxitin IV for prophylactic antibiotic. Patient rec eived general anesthesia without difficulty. The abdomen was prepped and draped in routine sterile f ashion. After time-out, I injected the local anesthesia by using 1% lidocaine mixed with 0.5% Marcaine just a chris umbilicus. I then made a small incision just above umbilical, opened fascia and opened peritone um, under direct vision, put a Nelda trocar in, connected to CO2 to create pneumoperitoneum at a marta w rate at 6 liters per minute, pressure not more than 14 mmHg. Once we got a nice pneumoperitoneum, we put a camera in, looked around the abdomen. There is some inflammation around the pelvic area and on the right lower quadrant, some pus around the right lower quadrant. At this moment, we put anoth er two 5 mm trocars on the left lower quadrant area. Once all trocars in, we suctioned the pus aroun d the right lower quadrant area to send culture and then found the patient had a posterior cecum and appendix. The appendix though is significantly enlarged with gangrene and with perforation. There i s some pus around the appendix. We suctioned the pus and sent to culture. Once we completely mobili zed the appendix, we used the Harmonic to take down the appendiceal, rechecked, no active bleeding. Then, I used a 45 mm Endo-FRIDA stapler, transection on the base of the appendix, rechecked the staple line intact and the appendix perforation in the tip of the appendix area. Then, we removed the appen tasha through the catch bag. Then, we reinserted Nelda trocar and connected CO2 to create pneumoperit oneum again, looked around the abdomen, again we used normal saline and flushed the right lower quadr ant and pelvic area, was suctioned until normal saline clear return and at this moment, I decided to put one 10 mm SARA drainage on the right lower quadrant. So we put one SARA drainage through the trocar incision, used 3-0 nylon to close the incisions and fix the drainage on the skin. Then, we removed a nother trocar under direct vision. No active bleeding from the trocar site. Then, we removed the ca arlet, Nelda and no active bleeding from the trocar site. Pneumoperitoneum was then released, then c losed umbilical incision fascial layer by using 0 Vicryl [id number] x2, closed subcutaneous laye r by using 2-0 Vicryl interrupted, closed skin by using 4-0 Vicryl continuous running, closed another 5 mm trocar site only by using 4-0 Vicryl. Then, we put the dressing on. The patient tolerated the procedure well. All instrument, needle and sponge counts were correct x2 at the end of the case. P atient transferred to recovery room in stable condition. The specimen was sent to pathology and afte r procedure, I did talk to the patient and the patient's about the OR finding and the procedu re we did. They understand. Job ID: [id number]
[2021-01-04 06:28] LABS: Hematocrit (blood only) 34.6 % (37-47); Hemoglobin 11.8 g/dL (12.0-16.0); Immature Granulocytes # (auto) 0.02 K/uL (0.00-0.02); Immature Granulocytes % (auto) 0.2 %; Lymphocytes # (auto) 0.47 K/uL (1.2-3.4); Lymphocytes % (auto) 4.1 %; Mean Corpuscular Hemoglobin 30.6 pg (25-34); Mean Corpuscular Hgb Conc 34.1 g/dL (32-36); Mean Corpuscular Volume 89.6 fL (80-100); Mean Platelet Volume 9.9 fL (7.4-10.4); Monocytes % (auto) 5.3 %; Neutrophils # (auto) 10.31 K/uL (1.4-6.5); Neutrophils % (auto) 90.4 %; Platelet Count 192 K/uL (130-400); RDW Coefficient of Variation 12.7 % (11.5-14.5); RDW Standard Deviation 41.4 fL (36.4-46.3); Red Blood Count 3.86 M/uL (4.2-5.4)
[2021-01-04] MEDS: METOPROLOL SUCC 50MG EXT REL TAB PO SCH (08:20)
[2021-01-04] MEDS: ISOSORBIDE MONO EXTENDED REL 30 MG TABCR PO SCH (08:20)
[2021-01-04] MEDS: busPIRone 7.5 MG TAB PO SCH ×2 (08:20→20:21)
[2021-01-04] MEDS: ASPIRIN 81 MG ECTAB PO SCH (08:20)
[2021-01-04] MEDS: PANTOprazole 40 MG TAB PO SCH ×2 (08:20→20:21)
[2021-01-04] MEDS: MULTIVITAMIN TAB PO SCH (08:20)
[2021-01-04] MEDS: lamoTRIgine 100 MG TAB PO SCH ×2 (08:20→20:20)
[2021-01-04] MEDS ORDERED: LUTEIN 10 MG PO SCH (09:00)
--- NOTE | 2021-01-04 11:23 | Progress Note ---
Date of Service January 04, 2021 Assessment & Plan (1) Acute appendicitis with generalized peritonitis: Plan: pt is a 65 year-old female who presents to ER with 2 days history acute RLQ pain, CT scan- acute appendicitis, IMP: acute appendicitis with generalized peritonitis, Plan, I recommend to do laparoscopic appendectomy, possible open , D/W benefits, risks and alternatives of the surgery, the risks -infection, bleeding, abscess, sepsis, multiple organs failure, [place], , pt and her understood, they agree with surgery, pt signed informed consent, I answered all questions, pre-op iv antibiotic 01/04/2021 11:22AM F/U S/P lap appy for perforated appendicitis, POD 1 doing better, continue iv antibiotic treatment, OOB advance diet, will F/U Admission and Anticipated Discharge Date Admission Date: January 03, 2021 Subjective F/U S/P lap appy POD 1 doing better, less abdominal pain, no nausea, no vomiting, no fever, tolerated clear diet, SARA 60ml, bloody color Review of Systems Constitutional: as per Subjective / HPI Eyes: as per Subjective / HPI Respiratory: as per Subjective / HPI and + problem reported (asthma) Cardiovascular: Additional Comments: CAD, [place] 8 years ago, cardiac stent, HTN Gastrointestinal: GERD Genitourinary: as per Subjective / HPI Musculoskeletal: as per Subjective / HPI rheumatoid arthritis Neurologic: as per Subjective / HPI Psychiatric: as per Subjective / HPI Endocrine: as per Subjective / HPI Physical Exam Constitutional: WD/WN, vitals as above Eyes: PERRL, conjunctivae normal, anicteric sclerae Neck: trachea midline, no thyromegaly Respiratory: normal respiratory effort, lungs clear to auscultation Cardiovascular: RRR, no murmur, no edema Gastrointestinal (Abdomen): soft, mild tenderness at incision site, no redness on incision site, all incision intact, Musculoskeletal: no cyanosis or clubbing, extremities motor strength 5/5 Neurologic: patellar DTR's 2+ bilat, sensation intact Psychiatric: A+Ox3, euthymic affect Results & Data ([facility]) Vital Signs (Past 12 Hours) Vital Signs Temp Pulse Pulse Pulse Resp BP BP 01/04/21 08:08 36.4 C L 82 16 113/70 01/04/21 03:46 36.5 C 16 105/63 01/04/21 02:48 36.4 C L 74 14 110/63 01/04/21 01:48 36.5 C 74 14 118/71 01/04/21 01:18 36.6 C 74 16 107/61 01/04/21 00:45 36.8 C 73 16 114/66 01/04/21 00:33 78 22 117/66 01/04/21 00:28 83 18 116/61 01/04/21 00:23 84 23 110/71 01/04/21 00:18 81 15 119/80 01/04/21 00:13 78 23 126/65 01/04/21 00:08 82 22 133/77 01/04/21 00:03 80 16 126/65 01/03/21 23:58 78 24 133/76 01/03/21 23:53 80 21 136/67 01/03/21 23:48 83 20 129/69 01/03/21 23:43 36.5 C 84 20 149/72 H 01/03/21 23:38 92 H 17 Pulse Ox 01/04/21 08:08 94 01/04/21 03:46 98 01/04/21 02:48 98 01/04/21 01:48 98 01/04/21 01:18 98 01/04/21 00:45 99 01/04/21 00:33 01/04/21 00:28 90 01/04/21 00:23 89 L 01/04/21 00:18 91 01/04/21 00:13 90 01/04/21 00:08 92 01/04/21 00:03 98 01/03/21 23:58 98 01/03/21 23:53 97 01/03/21 23:48 96 01/03/21 23:43 98 01/03/21 23:38 Laboratory Results Abnormal lab results 01/03/21 01/03/21 01/03/21 Range/Units 16:20 16:20 19:55 WBC 16.58 H (4.8-10.8) K/uL RBC (4.2-5.4) M/uL Hgb (12.0-16.0) g/dL Hct (37-47) % Neut # (Auto) 14.84 H (1.4-6.5) K/uL Lymph # (Auto) 0.62 L (1.2-3.4) K/uL [place] # (Auto) 1.05 H (0.11-0.59) K/uL Immature Gran # (Auto) 0.06 H (0.00-0.02) K/uL Sodium 133 L (136-145) mmol/L Glucose 123 H (70-99) mg/dl AST 13 L (15-37) U/L Lipase 69 L (73-393) U/L Ur Specific [place] > 1.045 H (1.000-1.030) 01/04/21 Range/Units 05:21 WBC 11.40 H (4.8-10.8) K/uL RBC 3.86 L (4.2-5.4) M/uL Hgb 11.8 L (12.0-16.0) g/dL Hct 34.6 L (37-47) % Neut # (Auto) 10.31 H (1.4-6.5) K/uL Lymph # (Auto) 0.47 L (1.2-3.4) K/uL [place] # (Auto) 0.60 H (0.11-0.59) K/uL Immature Gran # (Auto) (0.00-0.02) K/uL Sodium (136-145) mmol/L Glucose (70-99) mg/dl AST (15-37) U/L Lipase (73-393) U/L Ur Specific [place] (1.000-1.030)
--- NOTE | 2021-01-04 16:16 | Electrocardiogram Report ---
Test Reason : Blood Pressure : / mmHG Vent. Rate : 083 BPM Atrial Rate : 083 BPM P-R Int : 132 ms QRS Dur : 082 ms QT Int : 366 ms P-R-T Axes : 038 044 024 degrees QTc Int : 430 ms Normal sinus rhythm Nonspecific ST and T wave abnormality Abnormal ECG When compared with ECG of 21-MAY-2019 15:37, T wave inversion now evident in Anterior leads Confirmed by Leandro Coronado ([id number]) on 01/04/2021 4:15:27 PM Referred By: Haris Bustos Confirmed By:Leandro Coronado
[2021-01-04] MEDS: oxyCODONE/ACETAMINOPHEN 5mg/325mg TAB PO PRN (19:32)
[2021-01-04] MEDS: clonazePAM 0.25 MG TAB PO SCH (20:20)
[2021-01-04] MEDS: ROSUVASTATIN CALCIUM 20 MG TAB PO SCH (20:21)
[2021-01-05] MEDS: PIPERACILLIN/TAZOBACTAM 3.375 GM in DEXTROSE 5% 100 ML IV SCH ×3 (06:07→21:04)
[2021-01-05] MEDS: oxyCODONE/ACETAMINOPHEN 5mg/325mg TAB PO PRN ×2 (06:11→21:02)
[2021-01-05] MEDS: LACTATED RINGER'S 1,000 ML IV SCH ×2 (06:11→15:00)
[2021-01-05] MEDS: ISOSORBIDE MONO EXTENDED REL 30 MG TABCR PO SCH (08:15)
[2021-01-05] MEDS: busPIRone 7.5 MG TAB PO SCH ×2 (08:15→21:02)
[2021-01-05] MEDS: ASPIRIN 81 MG ECTAB PO SCH (08:15)
[2021-01-05] MEDS: METOPROLOL SUCC 50MG EXT REL TAB PO SCH (08:16)
[2021-01-05] MEDS: MULTIVITAMIN TAB PO SCH (08:16)
[2021-01-05] MEDS: PANTOprazole 40 MG TAB PO SCH ×2 (08:16→21:03)
[2021-01-05] MEDS: lamoTRIgine 100 MG TAB PO SCH ×2 (08:16→21:02)
[2021-01-05 08:46] LABS: Basophils # (auto) 0.01 K/uL (0-0.2); Basophils % (auto) 0.1 %; Eosinophils # (auto) 0.01 K/uL (0-0.5); Eosinophils % (auto) 0.1 %; Hematocrit (blood only) 32.2 % (37-47); Hemoglobin 10.6 g/dL (12.0-16.0); Immature Granulocytes # (auto) 0.02 K/uL (0.00-0.02); Immature Granulocytes % (auto) 0.2 %; Lymphocytes # (auto) 0.57 K/uL (1.2-3.4); Lymphocytes % (auto) 6.1 %; Mean Corpuscular Hemoglobin 30.3 pg (25-34); Mean Platelet Volume 9.8 fL (7.4-10.4); Monocytes # (auto) 0.73 K/uL (0.11-0.59); Monocytes % (auto) 7.9 %; Neutrophils # (auto) 7.93 K/uL (1.4-6.5); Neutrophils % (auto) 85.6 %; Platelet Count 200 K/uL (130-400); RDW Coefficient of Variation 13.2 % (11.5-14.5); RDW Standard Deviation 44.4 fL (36.4-46.3); White Blood Count 9.27 K/uL (4.8-10.8)
[2021-01-05 09:14] LABS: Mean Corpuscular Hgb Conc 32.9 g/dL (32-36)
--- NOTE | 2021-01-05 11:29 | Progress Note ---
Date of Service January 05, 2021 Assessment & Plan (1) Acute appendicitis with generalized peritonitis: Plan: pt is a 65 year-old female who presents to ER with 2 days history acute RLQ pain, CT scan- acute appendicitis, IMP: acute appendicitis with generalized peritonitis, Plan, I recommend to do laparoscopic appendectomy, possible open , D/W benefits, risks and alternatives of the surgery, the risks -infection, bleeding, abscess, sepsis, multiple organs failure, [place], , pt and her understood, they agree with surgery, pt signed informed consent, I answered all questions, pre-op iv antibiotic 01/04/2021 11:22AM F/U S/P lap appy for perforated appendicitis, POD 1 doing better, continue iv antibiotic treatment, OOB advance diet, will F/U 01/05/2021 11:30AM F/U S/P lap appy for perforated appendicitis, POD 2, normal WBC doing better, continue iv antibiotic treatment, OOB advance diet, may D/C home tomorrow, will F/U Admission and Anticipated Discharge Date Admission Date: January 03, 2021 Subjective F/U S/P lap appy POD 1 doing better, less abdominal pain, no nausea, no vomiting, no fever, tolerated clear diet, SARA 60ml, bloody color 01/05/2021 11: 27AM F/U S/P lap appy POD 2 doing better, less abdominal pain, no nausea, no vomiting, no fever, tolerated clear diet, SARA 40ml, clear color, passed BM, Review of Systems Constitutional: as per Subjective / HPI Eyes: as per Subjective / HPI Respiratory: as per Subjective / HPI and + problem reported (asthma) Cardiovascular: Additional Comments: CAD, [place] 8 years ago, cardiac stent, HTN Gastrointestinal: GERD Genitourinary: as per Subjective / HPI Musculoskeletal: as per Subjective / HPI rheumatoid arthritis Neurologic: as per Subjective / HPI Psychiatric: as per Subjective / HPI Endocrine: as per Subjective / HPI Physical Exam Constitutional: WD/WN, vitals as above Eyes: PERRL, conjunctivae normal, anicteric sclerae Neck: trachea midline, no thyromegaly Respiratory: normal respiratory effort, lungs clear to auscultation Cardiovascular: RRR, no murmur, no edema Gastrointestinal (Abdomen): soft, NT, ND, all incisions intact, no redness, BS + Musculoskeletal: no cyanosis or clubbing, extremities motor strength 5/5 Neurologic: patellar DTR's 2+ bilat, sensation intact Psychiatric: A+Ox3, euthymic affect Results & Data ([facility]) Vital Signs (Past 12 Hours) Vital Signs Temp Pulse Resp BP Pulse Ox 01/05/21 08:10 36.9 C 96 H 14 102/61 91 01/05/21 03:33 36.6 C 96 H 18 112/67 92 01/04/21 23:38 36.7 C 92 H 18 104/63 92 Laboratory Results Abnormal lab results 01/05/21 Range/Units 07:49 RBC 3.50 L (4.2-5.4) M/uL Hgb 10.6 L (12.0-16.0) g/dL Hct 32.2 L (37-47) % Neut # (Auto) 7.93 H (1.4-6.5) K/uL Lymph # (Auto) 0.57 L (1.2-3.4) K/uL [place] # (Auto) 0.73 H (0.11-0.59) K/uL
[2021-01-05] MEDS: clonazePAM 0.25 MG TAB PO SCH (21:01)
[2021-01-05] MEDS: ROSUVASTATIN CALCIUM 20 MG TAB PO SCH (21:03)
[2021-01-06] MEDS: LACTATED RINGER'S 1,000 ML IV SCH (05:46)
[2021-01-06] MEDS: PIPERACILLIN/TAZOBACTAM 3.375 GM in DEXTROSE 5% 100 ML IV SCH (05:46)
[2021-01-06 08:15] LABS: Creatinine Clr Calc Pharmacy 61.6 ml/min; Est GFR (African American) 102.9 ml/min; Est GFR (Non-African American) 88.8 ml/min
[2021-01-06] MEDS: busPIRone 7.5 MG TAB PO SCH (09:08)
[2021-01-06] MEDS: ASPIRIN 81 MG ECTAB PO SCH (09:08)
[2021-01-06] MEDS: ISOSORBIDE MONO EXTENDED REL 30 MG TABCR PO SCH (09:08)
[2021-01-06] MEDS: PANTOprazole 40 MG TAB PO SCH (09:09)
[2021-01-06] MEDS: METOPROLOL SUCC 50MG EXT REL TAB PO SCH (09:09)
[2021-01-06] MEDS: lamoTRIgine 100 MG TAB PO SCH (09:09)
[2021-01-06] MEDS: MULTIVITAMIN TAB PO SCH (09:09)
[2021-01-06] MEDS: oxyCODONE/ACETAMINOPHEN 5mg/325mg TAB PO PRN (11:27)
--- NOTE | 2021-01-06 12:13 | Progress Note ---
Date of Service January 06, 2021 Assessment & Plan (1) Acute appendicitis with generalized peritonitis: Plan: pt is a 65 year-old female who presents to ER with 2 days history acute RLQ pain, CT scan- acute appendicitis, IMP: acute appendicitis with generalized peritonitis, Plan, I recommend to do laparoscopic appendectomy, possible open , D/W benefits, risks and alternatives of the surgery, the risks -infection, bleeding, abscess, sepsis, multiple organs failure, [place], , pt and her understood, they agree with surgery, pt signed informed consent, I answered all questions, pre-op iv antibiotic 01/04/2021 11:22AM F/U S/P lap appy for perforated appendicitis, POD 1 doing better, continue iv antibiotic treatment, OOB advance diet, will F/U 01/05/2021 11:30AM F/U S/P lap appy for perforated appendicitis, POD 2, normal WBC doing better, continue iv antibiotic treatment, OOB advance diet, october D/C home tomorrow, will F/U 01/06/2021 12:11PM pulled out SARA, D/C home, with po cipro + flagyl, percocet F/U 2 weeks, post-op care instruction was given,[phone] Admission and Anticipated Discharge Date Admission Date: January 03, 2021 Subjective F/U S/P lap appy POD 1 doing better, less abdominal pain, no nausea, no vomiting, no fever, tolerated clear diet, SARA 60ml, bloody color 01/05/2021 11: 27AM F/U S/P lap appy POD 2 doing better, less abdominal pain, no nausea, no vomiting, no fever, tolerated clear diet, SARA 40ml, clear color, passed BM, 01/06/2021 12:09PM F/U S/P lap appy POD 2 doing better, less abdominal pain, no nausea, no vomiting, no fever, tolerated clear diet, SARA 35ml, clear color, passed BM, peritoneal fluid culture reviewed- Doroteo with pt, Review of Systems Constitutional: as per Subjective / HPI Eyes: as per Subjective / HPI Respiratory: as per Subjective / HPI and + problem reported (asthma) Cardiovascular: Additional Comments: CAD, [place] 8 years ago, cardiac stent, HTN Gastrointestinal: GERD Genitourinary: as per Subjective / HPI Musculoskeletal: as per Subjective / HPI rheumatoid arthritis Neurologic: as per Subjective / HPI Psychiatric: as per Subjective / HPI Endocrine: as per Subjective / HPI Physical Exam Constitutional: WD/WN, vitals as above Eyes: PERRL, conjunctivae normal, anicteric sclerae Neck: trachea midline, no thyromegaly Respiratory: normal respiratory effort, lungs clear to auscultation Cardiovascular: RRR, no murmur, no edema Gastrointestinal (Abdomen): soft, mild tenderness at incision site, no rebound pain, all incisions intact, no redness, BS +, SARA intact Musculoskeletal: no cyanosis or clubbing, extremities motor strength 5/5 Neurologic: patellar DTR's 2+ bilat, sensation intact Psychiatric: A+Ox3, euthymic affect Results & Data ([facility]) Vital Signs (Past 12 Hours) Vital Signs Temp Pulse Resp BP Pulse Ox 01/06/21 07:18 37.6 C H 97 H 17 150/77 H 90
--- NOTE | 2021-01-06 13:02 | Discharge Summary (DS) ---
DATE OF ADMISSION: 01/03/2021 DATE OF DISCHARGE: 01/06/2021 ADMISSION DIAGNOSIS: Acute appendicitis with perforation. DISCHARGE DIAGNOSIS: Acute appendicitis with perforation. OPERATION: Laparoscopic appendectomy. SURGEON: Ken Faulkner MD. DETAILS OF DISCHARGE SUMMARY: This is a 65-year-old female who presented to the ED with acute abdomi nal pain. The patient had a CT scan diagnosis of acute appendicitis. We took the patient to the OR, we did laparoscopic appendectomy. During the OR, we found the patient had acute appendicitis with pe rforation. The patient tolerated the procedure well. After the procedure, the patient was transferre d to recovery room and later on transferred to regular floor. The patient is doing fine and has less abdominal pain. The patient tolerated the diet, no nausea, no vomiting and peritoneal wound culture revealed E. coli. PHYSICAL EXAMINATION: VITAL SIGNS: Temperature is 37.6, respiratory rate 17, heart rate 97, blood pressure 150/77, O2 satu ration 90% on room air. GENERAL: The patient is alert, awake, oriented x3. HEENT: Normal limitation. NEUROLOGIC: Intact. NECK: No JVD. CHEST: Bilateral lung sounds clear. HEART: Normal S1 and S2. No murmur. ABDOMEN: Soft and nondistended. Mild tenderness on the incision site. We already removed the SARA, t here was clear fluid about 35 mL over 24 hours and all incisions intact. No redness, no drainage. B owel sounds positive. EXTREMITIES: No edema. The patient will go home today. We gave the patient postop care instruction and I will follow up the patient in 2 weeks. Job ID: [id number]
== END 2021-01-06 13:09 | disposition home or self-care (01) | DRG 343 ==
LOC: ED 15:12 → OR 22:00 → 3N 23:34